=== PATIENT | female | born 1985 | race Caucasian/White ===

== ENCOUNTER 2019-03-20 17:25 | Inpatient (IN) | payer OTHER ==
[2019-03-20] MEDS ORDERED: ONDANSETRON 4 MG/2 ML VIAL IVP STA (19:25)
[2019-03-20] MEDS ORDERED: SODIUM CHLORIDE 0.9% 1,000 ML IV STA (19:25)
[2019-03-20] MEDS ORDERED: KETOROLAC 30 MG/ML 1 ML VIAL IVP STA (19:25)
--- NOTE | 2019-03-20 19:52 | ED ---
Abdominal Pain HPI <Jose Alfaro - Last Filed: 03/20/19 21:15> - General Source: patient Mode of arrival: ambulatory Limitations: no limitations <Jen Villalba - Last Filed: 03/20/19 21:44> - General Chief Complaint: Abdominal Pain Stated Complaint: Vomiting, abd pain Time Seen by Provider: 03/20/19 19:10 - History of Present Illness Initial Comments: Patient is a 33-year-old female presenting to emergency Department with complaints of umbilical and right lower quadrant pain that started this afternoon. Patient states it started pretty suddenly and she's been having nausea and vomiting with this pain as well. Patient describes the pain as constant and very sharp in nature. She admits to history of cholecystectomy and 2 C-sections. Patient describes his pain is way worse than labor pains, rates 9/10. Different positions do not make this pain better. She denies history of kidney stones. She takes medicine for ADHD. No other pertinent past medical history. She denies secondary to tubal removal. She states that yesterday and this morning she was feeling fine. She's been eating and drinking as normal, last bowel movement was yesterday was normal. She has no other complaints at this time. Arrival to the ER, patient's BP is 154/97, rest of vitals are normal. (Jen Villalba) - Related Data Allergies Allergy/AdvReac Type Severity Reaction Status Date / Time sulfamethoxazole Allergy Unknown Verified 03/20/19 17:29 [From Bactrim] Childhood trimethoprim [From Bactrim] Allergy Unknown Verified 03/20/19 17:29 Childhood Review of Systems ROS Other: All systems not noted in ROS Statement are negative. <Jose Alfaro - Last Filed: 03/20/19 21:15> ROS Other: All systems not noted in ROS Statement are negative. <Jen Villalba - Last Filed: 03/20/19 21:44> ROS Statement: Those systems with pertinent positive or pertinent negative responses have been documented in the HPI. Past Medical History Past Medical History: No Reported History History of Any Multi-Drug Resistant Organisms: None Reported Past Surgical History: Section, Cholecystectomy Past Psychological History: ADD/ADHD Smoking Status: Never smoker Past Alcohol Use History: Occasional Past Drug Use History: None Reported <Jen Villalba - Last Filed: 03/20/19 21:44> General Exam Limitations: no limitations <Jen Villalba - Last Filed: 03/20/19 21:44> - General Exam Comments Initial Comments: GENERAL: Patient is in the position, very nauseous and gripping stomach. HEAD: Atraumatic, normocephalic. EYES: Pupils equal round and reactive to light, extraocular movements intact, sclera anicteric, conjunctiva are normal. ENT: TMs normal, nares patent, oropharynx clear without exudates. Moist mucous membranes. NECK: Normal range of motion, supple without lymphadenopathy or JVD. LUNGS: Breath sounds clear to auscultation bilaterally and equal. No wheezes rales or rhonchi. HEART: Regular rate and rhythm without murmurs, rubs or gallops. ABDOMEN: Severe tenderness to palpation in the right lower quadrant, suprapubic and umbilical region. Patient is guarding, positive rebound. : Deferred EXTREMITIES: Normal range of motion, no pitting or edema. No clubbing or cyanosis. NEUROLOGICAL: Normal speech, normal gait. PSYCH: Normal mood, normal affect. SKIN: Warm, Dry, normal turgor, no rashes or lesions noted. (Jen Villalba) Course <Jose Alfaro - Last Filed: 03/20/19 21:15> Vital Signs 03/20/19 03/20/19 03/20/19 17:27 19:25 20:00 Temperature 97.6 F 97 F L Pulse Rate 77 117 H Respiratory 19 19 19 Rate Blood Pressure 154/97 149/96 119/96 O2 Sat by Pulse 100 100 97 Oximetry 03/20/19 21:00 Temperature 97.6 F Pulse Rate 86 Respiratory 18 Rate Blood Pressure 111/75 O2 Sat by Pulse 100 Oximetry - Reevaluation(s) Reevaluation #1: 03/20/19 21:[address] Roe, the surgeon on-call and he will attempt to arrange OR for tonight. (Jose Alfaro) Medical Decision Making - Lab Data Result diagrams: 03/20/19 14:36 03/20/19 14:36 <Jose Alfaro - Last Filed: 03/20/19 21:15> - Lab Data Result diagrams: 03/20/19 14:36 03/20/19 14:36 <Jen Villalba - Last Filed: 03/20/19 21:44> - Medical Decision Making I saw this patient in conjunction with the physician access services assistant. I performed independent history and physical exam. Agree with case management. (Jose Alfaro) Patient is a 33-year-old female presenting with right lower quadrant and umbilical pain since this afternoon. Patient has history of cholecystectomy and 2 C-sections. Vital signs are stable upon arrival. Patient has severe right lower quadrant pain. Labs show slight leukocytosis at 13.7, lactic acid is norm al, urine is normal. EKG the abdomen shows findings consistent with acute appendicitis, also findings of a ruptured left ovarian cyst. She was given fluids, pain control, Zofran. She reports improvement in her symptoms. I discussed these findings with the patient. On-call surgery, Dr. Roe was contacted and [facility] Antibiotics were started as well. Patient is in agreement with this plan of care. Case discussed with Dr. Alfaro. (Jen Villalba) - Lab Data Lab Results 03/20/19 03/20/19 03/20/19 Range/Units 14:36 14:36 14:36 WBC (3.8-10.6) k/uL RBC (3.80-5.40) m/uL Hgb (11.4-16.0) gm/dL Hct (34.0-46.0) % MCV (80.0-100.0) fL MCH (25.0-35.0) pg MCHC (31.0-37.0) g/dL RDW (11.5-15.5) % Plt Count (150-450) k/uL Neutrophils % % Lymphocytes % % Monocytes % % Eosinophils % % Basophils % % Neutrophils # (1.3-7.7) k/uL Lymphocytes # (1.0-4.8) k/uL Monocytes # (0-1.0) k/uL Eosinophils # (0-0.7) k/uL Basophils # (0-0.2) k/uL PT 10.1 (9.0-12.0) sec INR 1.0 (<1.2) APTT 23.6 (22.0-30.0) sec Sodium 138 (137-145) mmol/L Potassium 4.2 (3.5-5.1) mmol/L Chloride 103 (98-107) mmol/L Carbon Dioxide 26 (22-30) mmol/L Anion Gap 9 mmol/L BUN 11 (7-17) mg/dL Creatinine 0.59 (0.52-1.04) mg/dL Est GFR (CKD-EPI)AfAm >90 (>60 ml/min/1.73 sqM) Est GFR (CKD-EPI)NonAf >90 (>60 ml/min/1.73 sqM) Glucose 105 H (74-99) mg/dL Plasma Lactic Acid Nate 0.8 (0.7-2.0) mmol/L Calcium 9.5 (8.4-10.2) mg/dL Total Bilirubin 0.6 (0.2-1.3) mg/dL AST 21 (14-36) U/L ALT 14 (4-34) U/L Alkaline Phosphatase 46 (38-126) U/L Total Protein 7.6 (6.3-8.2) g/dL Albumin 4.7 (3.5-5.0) g/dL Amylase 54 (30-110) U/L Lipase 65 (23-300) U/L Urine Color Urine Appearance (Clear) Urine pH (5.0-8.0) Ur Specific [place] (1.001-1.035) Urine Protein (Negative) Urine Glucose (UA) (Negative) Urine Ketones (Negative) Urine Blood (Negative) Urine Nitrite (Negative) Urine Bilirubin (Negative) Urine Urobilinogen (<2.0) mg/dL Ur Leukocyte Esterase (Negative) Urine RBC (0-5) /hpf Urine WBC (0-5) /hpf Ur Squamous Epith Cells (0-4) /hpf Urine Mucus (None) /hpf Urine HCG, Qual (Not Detectd) 03/20/19 03/20/19 03/20/19 Range/Units 14:36 20:07 20:07 WBC 13.7 H (3.8-10.6) k/uL RBC 4.21 (3.80-5.40) m/uL Hgb 13.0 (11.4-16.0) gm/dL Hct 37.9 (34.0-46.0) % MCV 89.9 (80.0-100.0) fL MCH 30.9 (25.0-35.0) pg MCHC 34.3 (31.0-37.0) g/dL RDW 12.5 (11.5-15.5) % Plt Count 243 (150-450) k/uL Neutrophils % 88 % Lymphocytes % 10 % Monocytes % 2 % Eosinophils % 0 % Basophils % 0 % Neutrophils # 12.0 H (1.3-7.7) k/uL Lymphocytes # 1.3 (1.0-4.8) k/uL Monocytes # 0.3 (0-1.0) k/uL Eosinophils # 0.0 (0-0.7) k/uL Basophils # 0.0 (0-0.2) k/uL PT (9.0-12.0) sec INR (<1.2) APTT (22.0-30.0) sec Sodium (137-145) mmol/L Potassium (3.5-5.1) mmol/L Chloride (98-107) mmol/L Carbon Dioxide (22-30) mmol/L Anion Gap mmol/L BUN (7-17) mg/dL Creatinine (0.52-1.04) mg/dL Est GFR (CKD-EPI)AfAm (>60 ml/min/1.73 sqM) Est GFR (CKD-EPI)NonAf (>60 ml/min/1.73 sqM) Glucose (74-99) mg/dL Plasma Lactic Acid Nate (0.7-2.0) mmol/L Calcium (8.4-10.2) mg/dL Total Bilirubin (0.2-1.3) mg/dL AST (14-36) U/L ALT (4-34) U/L Alkaline Phosphatase (38-126) U/L Total Protein (6.3-8.2) g/dL Albumin (3.5-5.0) g/dL Amylase (30-110) U/L Lipase (23-300) U/L Urine Color Yellow Urine Appearance Clear (Clear) Urine pH 7.5 (5.0-8.0) Ur Specific [place] 1.050 H (1.001-1.035) Urine Protein Negative (Negative) Urine Glucose (UA) Negative (Negative) Urine Ketones 1+ H (Negative) Urine Blood Negative (Negative) Urine Nitrite Negative (Negative) Urine Bilirubin Negative (Negative) Urine Urobilinogen 2.0 (<2.0) mg/dL Ur Leukocyte Esterase Trace H (Negative) Urine RBC 1 (0-5) /hpf Urine WBC 1 (0-5) /hpf Ur Squamous Epith Cells 3 (0-4) /hpf Urine Mucus Rare H (None) /hpf Urine HCG, Qual Not Detected (Not Detectd) Disposition <Jose Alfaro - Last Filed: 03/20/19 21:15> Is patient prescribed a controlled substance at d/c from ED?: No Decision Date: 03/20/19 Decision Time: 21:25 <Jen Villalba - Last Filed: 03/20/19 21:44> Clinical Impression: Acute appendicitis Disposition: ADMITTED IP TO THIS HOSP Condition: Stable Referrals: Madelyn Cesar DO [Primary Care Provider] - 1-2 days
[2019-03-20 19:57] LABS: Basophils % (A) 0 %; Eosinophils % (A) 0 %; HCT 37.9 % (34.0-46.0); Lymphocytes # (A) 1.3 k/uL (1.0-4.8); Lymphocytes % (A) 10 %; MCH 30.9 pg (25.0-35.0); MCHC 34.3 g/dL (31.0-37.0); MCV 89.9 fL (80.0-100.0); Monocytes # (A) 0.3 k/uL (0-1.0); Monocytes % (A) 2 %; Neutrophils % (A) 88 %; Platelet Count 243 k/uL (150-450); RBC 4.21 m/uL (3.80-5.40); RDW 12.5 % (11.5-15.5); WBC 13.7 k/uL (3.8-10.6)
[2019-03-20 19:59] LABS: ALT 14 U/L (4-34); AST 21 U/L (14-36); African American GFR (CKD) >90 (>60 ml/min/1.73 sqM); Albumin 4.7 g/dL (3.5-5.0); Alkaline Phosphatase 46 U/L (38-126); Amylase 54 U/L (30-110); Anion Gap 9 mmol/L; Blood Urea Nitrogen 11 mg/dL (7-17); Calcium 9.5 mg/dL (8.4-10.2); Carbon Dioxide 26 mmol/L (22-30); Chloride 103 mmol/L (98-107); Glucose 105 mg/dL (74-99); Non-African American GFR(CKD) >90 (>60 ml/min/1.73 sqM); Potassium 4.2 mmol/L (3.5-5.1); Sodium 138 mmol/L (137-145); Total Bilirubin 0.6 mg/dL (0.2-1.3); Total Protein 7.6 g/dL (6.3-8.2)
[2019-03-20 20:12] LABS: Partial Thromboplastin Time 23.6 sec (22.0-30.0); Prothrombin Time 10.1 sec (9.0-12.0)
[2019-03-20 20:28] LABS: Appearance,Urine Clear (Clear); Bilirubin,Urine Negative (Negative); Blood,Urine Negative (Negative); Color,Urine Yellow; Glucose,Urine (UA) Negative (Negative); Ketones,Urine 1+ (Negative); Leukocyte Esterase,Urine Trace (Negative); Mucus,Urine Rare /hpf; Nitrite,Urine Negative (Negative); PH, Urine 7.5 (5.0-8.0); Protein,Urine Negative (Negative); RBC,Urine 1 /hpf (0-5); Squamous Epithelial Cell,Urine 3 /hpf (0-4); WBC,Urine 1 /hpf (0-5)
--- NOTE | 2019-03-20 20:50 | CT ---
EXAMINATION TYPE: CT abdomen pelvis w con DATE OF EXAM: 03/20/2019 COMPARISON: None HISTORY: Right lower quadrant abdominal pain, nausea and vomiting. CT DLP: 595.6 mGycm Automated exposure control for dose reduction was used. TECHNIQUE: Helical acquisition of images was performed from the lung bases through the pelvis. CONTRAST: Performed without Oral Contrast and with IV Contrast, patient injected with 100ml mL of Iso meenu 300. FINDINGS: LUNG BASES: No acute process. LIVER/GB: No significant abnormality is appreciated. PANCREAS: No significant abnormality is seen. SPLEEN: No significant abnormality is seen. ADRENALS: No significant abnormality is seen. KIDNEYS: No significant abnormality is seen. PERITONEAL CAVITY: There is a mild-moderate volume of gravity-dependent peritoneal fluid throughout t he pelvis. There is no pneumoperitoneum. RETROPERITONEAL ADENOPATHY: None visualized REPRODUCTIVE ORGANS: No significant abnormality is seen. Uterus anteverted without flexion measuring 10 x 6 x 5 x 5.5 cm. Specific bilateral adnexal cystic regions are noted, left greater than right. URINARY BLADDER: No significant abnormality is seen. PELVIC ADENOPATHY: None visualized. BOWEL: Cecum is located in the right lower quadrant anteriorly, with a retrocecal appendix rising cep halad along the right posterolateral cecal margin up to a level just caudal to the level of the super ior iliac crest. The appendix is indistinct and diffusely enlarged in caliber, measuring 11 mm (top n ormal caliber 6 mm). The thickened appendix is associated with mild thickening of the lateral conal f ascia.There is a mild-plus volume of gravity-dependent peritoneal fluid throughout the pelvis - but n o focal fluid collection to suggest abscess. VASCULATURE: No acute findings. OSSEOUS STRUCTURES: No significant abnormality is seen. IMPRESSION: 1. CT FINDINGS CONSISTENT WITH ACUTE APPENDICITIS. 2. PELVIC PERITONEAL FLUID. 3. FINDINGS ALSO SUGGEST RUPTURED LEFT OVARIAN CYST, IF CLINICALLY CONFIRMED, AND CLINICAL EXCLUSION OF REQUESTED.
[2019-03-20] MEDS ORDERED: MORPHINE SULFATE 4 MG/ML SYRINGE IVP STA (20:55)
[2019-03-20] MEDS ORDERED: NALOXONE 0.4 MG/ML 1 ML VIAL IV PRN (21:23)
[2019-03-20] MEDS ORDERED: KETOROLAC 30 MG/ML 1 ML VIAL IVP PRN (21:23)
[2019-03-20] MEDS ORDERED: ONDANSETRON 4 MG/2 ML VIAL IVP PRN (21:23)
[2019-03-20] MEDS ORDERED: ACETAMINOPHEN TAB 325 MG TAB PO PRN (21:23)
[2019-03-20] MEDS ORDERED: PIPERACILLIN-TAZOBACTAM 3.375 GM in SODIUM CHLORIDE 0.9% 100 ML IVPB STA (21:25)
[2019-03-20] MEDS: SODIUM CHLORIDE 0.9% 1,000 ML IV SCH (21:49)
[2019-03-20] MEDS ORDERED: ONDANSETRON 4 MG/2 ML VIAL ONE (22:29)
[2019-03-20] MEDS ORDERED: DEXAMETHASONE SOD PHOS (MDV) 100 MG/10 ML VIAL ONE (22:29)
[2019-03-20] MEDS ORDERED: SUCCINYLCHOLINE CHLORIDE 100 MG/5 ML SYR IV ONE (22:29)
[2019-03-20] MEDS ORDERED: fentaNYL (PF) 50 MCG/ML 2 ML AMP ONE (22:29)
[2019-03-20] MEDS ORDERED: NEOSTIGMINE 1 MG/ML 10 ML VIAL ONE (22:29)
[2019-03-20] MEDS ORDERED: PROPOFOL 10 MG/ML 20 ML VIAL IV ONE (22:29)
[2019-03-20] MEDS ORDERED: MIDAZOLAM 2 MG/2 ML VIAL ONE (22:29)
[2019-03-20] MEDS ORDERED: ROCURONIUM BROMIDE 10 MG/ML 10 ML VIAL IV ONE (22:29)
[2019-03-20] MEDS ORDERED: GLYCOPYRROLATE 0.2 MG/ML 2 ML VIAL ONE (22:29)
[2019-03-20] MEDS ORDERED: LIDOCAINE 1% INJ 10MG/ML (20 ML MDV) ONE (22:29)
--- NOTE | 2019-03-20 22:30 | P.GSHP ---
History of Present Illness H&P Date: 03/20/19 33-year-old female presents to the emergency department with complaints of right lower quadrant pain. She states that the pain began at approximately 2 PM today and increased in intensity. She states that she began feeling nauseous and having vomiting episodes. She denies having an appetite. She states she has never had pain like this previously. On workup in the emergency department, the patient did have a CT of the abdomen and pelvis that showed a dilated and thickened appendix with surrounding fat stranding. She denied any fevers. She currently denies any chest pain or shortness of breath. - Review of Systems All systems: negative Past Medical History Past Medical History: No Reported History History of Any Multi-Drug Resistant Organisms: None Reported Past Surgical History: Section, Cholecystectomy Past Psychological History: ADD/ADHD Smoking Status: Never smoker Past Alcohol Use History: Occasional Past Drug Use History: None Reported Medications and Allergies Home Medications Medication Instructions Recorded Confirmed Type Lisdexamfetamine Dimesylate 70 mg PO QAM 03/20/19 03/20/19 History [Vyvanse] SUMAtriptan SUCCINATE [Imitrex] 100 mg PO DAILY PRN 03/20/19 03/20/19 History Sertraline [Zoloft] 200 mg PO DAILY 03/20/19 03/20/19 History Spironolactone [Aldactone] 25 mg PO DAILY 03/20/19 03/20/19 History Allergies Allergy/AdvReac Type Severity Reaction Status Date / Time sulfamethoxazole Allergy Rash/Hives Verified 03/20/19 22:17 [From Bactrim] trimethoprim [From Bactrim] Allergy Rash/Hives Verified 03/20/19 22:17 Surgical - Exam Osteopathic Statement: *. No significant issues noted on an osteopathic structural exam other than those noted in the History and Physical/Consult. Vital Signs Temp Pulse Resp BP Pulse Ox 97.6 F 77 19 154/97 100 03/20/19 17:27 03/20/19 17:27 03/20/19 17:27 03/20/19 17:27 03/20/19 17:27 - General well nourished, no distress - Eyes PERRL - ENT no hearing loss - Neck trachea midline - Respiratory normal respiratory effort - Abdomen Soft, tender to palpation in the right lower quadrant, nondistended, no rebound, no guarding - Psychiatric oriented to time, oriented to person, oriented to place Results - Labs 03/20/19 14:36 03/20/19 14:36 Abnormal Lab Results - Last 24 Hours (Table) 03/20/19 03/20/19 03/20/19 Range/Units 14:36 14:36 20:07 WBC 13.7 H (3.8-10.6) k/uL Neutrophils # 12.0 H (1.3-7.7) k/uL Glucose 105 H (74-99) mg/dL Ur Specific [place] 1.050 H (1.001-1.035) Urine Ketones 1+ H (Negative) Ur Leukocyte Esterase Trace H (Negative) Urine Mucus Rare H (None) /hpf Diabetes panel 03/20/19 Range/Units 14:36 Sodium 138 (137-145) mmol/L Potassium 4.2 (3.5-5.1) mmol/L Chloride 103 (98-107) mmol/L Carbon Dioxide 26 (22-30) mmol/L BUN 11 (7-17) mg/dL Creatinine 0.59 (0.52-1.04) mg/dL Glucose 105 H (74-99) mg/dL Calcium 9.5 (8.4-10.2) mg/dL AST 21 (14-36) U/L ALT 14 (4-34) U/L Alkaline Phosphatase 46 (38-126) U/L Total Protein 7.6 (6.3-8.2) g/dL Albumin 4.7 (3.5-5.0) g/dL Calcium panel 03/20/19 Range/Units 14:36 Calcium 9.5 (8.4-10.2) mg/dL Albumin 4.7 (3.5-5.0) g/dL Pituitary panel 03/20/19 Range/Units 14:36 Sodium 138 (137-145) mmol/L Potassium 4.2 (3.5-5.1) mmol/L Chloride 103 (98-107) mmol/L Carbon Dioxide 26 (22-30) mmol/L BUN 11 (7-17) mg/dL Creatinine 0.59 (0.52-1.04) mg/dL Glucose 105 H (74-99) mg/dL Calcium 9.5 (8.4-10.2) mg/dL Adrenal panel 03/20/19 Range/Units 14:36 Sodium 138 (137-145) mmol/L Potassium 4.2 (3.5-5.1) mmol/L Chloride 103 (98-107) mmol/L Carbon Dioxide 26 (22-30) mmol/L BUN 11 (7-17) mg/dL Creatinine 0.59 (0.52-1.04) mg/dL Glucose 105 H (74-99) mg/dL Calcium 9.5 (8.4-10.2) mg/dL Total Bilirubin 0.6 (0.2-1.3) mg/dL AST 21 (14-36) U/L ALT 14 (4-34) U/L Alkaline Phosphatase 46 (38-126) U/L Total Protein 7.6 (6.3-8.2) g/dL Albumin 4.7 (3.5-5.0) g/dL Assessment and Plan (1) Acute appendicitis Narrative/Plan: 33-year-old female with acute appendicitis. We will begin antibiotics and keep the patient nothing by mouth. We will plan for laparoscopic appendectomy. Further recommendations after procedure. Current Visit: Yes Status: Acute Code(s): K35.80 - UNSPECIFIED ACUTE APPENDICITIS SNOMED Code(s): 68632751
[2019-03-20] MEDS ORDERED: SODIUM CHLORIDE 0.9% 1,000 ML IV ONE (22:32)
[2019-03-20] MEDS ORDERED: BUPIVACAINE (PF) 0.25% 30 ML VIAL SQ ONE ×2 (22:48)
--- NOTE | 2019-03-20 23:12 | P.OP ---
Date of Procedure: 03/20/19 Preoperative Diagnosis: Acute appendicitis Postoperative Diagnosis: Acute appendicitis Procedure(s) Performed: Laparoscopic appendectomy Anesthesia: MCKINLEY Surgeon: Roshan Roe Pathology: other (Appendix) Condition: stable Disposition: floor Indications for Procedure: 33-year-old female presented to the emergency department with complaints of right lower quadrant pain. On workup, she was found to have acute appendicitis on CT of the abdomen and pelvis. Plan was for laparoscopic appendectomy. The patient was explained the risks, benefits and alternatives to the procedure. She did provide consent prior to attending the operating suite. Operative Findings: Inflamed appendix and turbid fluid in the pelvis Description of Procedure: The patient was brought into the operating suite and placed in supine position on the operating table. Sedation was provided by anesthesia and the patient underwent endotracheal intubation. The patient was then prepped and draped in regular sterile fashion. Local anesthetic was administered and a supraumbilical incision was made. Dissection was carried to the fascia. The fascia was then incised and a 12 mm trocar was placed. Pneumoperitoneum was achieved. 2 additional ports were placed. A 5 mm port was placed in the suprapubic region and in the left lower quadrant. The patient was then positioned appropriately. The appendix was immediately visualized and was noted to be inflamed. Turbid fluid was also noted in the pelvis. The appendix was then grasped and elevated. The base of the appendix was clearly visualized. A window was then created between the appendix and the mesoappendix using a [place] dissector. The base of the appendix was then stapled across using a purple load Endo DANIELLA stapling device. The appendix was then dissected from the mesoappendix using LigaSure device. The appendix was then placed in an Endo Catch bag and removed from the abdomen. Suction and irrigation was then placed in the pelvis to remove the turbid fluid. Hemostasis was noted to be maintained. The 12 mm trocar site was then closed with 0 Vicryl suture in the fascial layer. This was done using Leonel Horvath device under direct visualization. Pneumoperitoneum was then released other ports removed from the abdomen. All skin incision sites were closed with 4-0 Vicryl subcuticular suture. The patient was awakened in the operating suite and taken to postanesthesia care unit in stable condition.
[2019-03-21] MEDS: SODIUM CHLORIDE 0.9% 1,000 ML IV SCH (01:00)
[2019-03-21] MEDS: KETOROLAC 30 MG/ML 1 ML VIAL IVP PRN ×3 (01:07→14:21)
[2019-03-21] MEDS: MORPHINE SULFATE 4 MG/ML SYRINGE IV PRN ×3 (02:05→09:29)
[2019-03-21] MEDS ORDERED: PIPERACILLIN-TAZOBACTAM 3.375 GM in SODIUM CHLORIDE 0.9% 100 ML IVPB SCH ×2 (06:00→08:00)
[2019-03-21 07:45] LABS: Basophils % (A) 0 %; Eosinophils % (A) 0 %; HCT 35.9 % (34.0-46.0); Lymphocytes # (A) 0.7 k/uL (1.0-4.8); Lymphocytes % (A) 12 %; MCH 30.7 pg (25.0-35.0); MCHC 33.4 g/dL (31.0-37.0); MCV 91.9 fL (80.0-100.0); Mean Platelet Volume 8.2; Monocytes # (A) 0.1 k/uL (0-1.0); Monocytes % (A) 2 %; Neutrophils # (A) 4.7 k/uL (1.3-7.7); Neutrophils % (A) 85 %; Platelet Count 234 k/uL (150-450); RDW 12.6 % (11.5-15.5); WBC 5.5 k/uL (3.8-10.6)
[2019-03-21 08:04] LABS: ALT 108 U/L (4-34); AST 104 U/L (14-36); African American GFR (CKD) >90 (>60 ml/min/1.73 sqM); Albumin 3.5 g/dL (3.5-5.0); Alkaline Phosphatase 41 U/L (38-126); Anion Gap 7 mmol/L; Blood Urea Nitrogen 7 mg/dL (7-17); Calcium 8.4 mg/dL (8.4-10.2); Carbon Dioxide 24 mmol/L (22-30); Chloride 107 mmol/L (98-107); Glucose 107 mg/dL (74-99); Non-African American GFR(CKD) >90 (>60 ml/min/1.73 sqM); Potassium 4.7 mmol/L (3.5-5.1); Sodium 138 mmol/L (137-145); Total Protein 6.2 g/dL (6.3-8.2)
[2019-03-21 08:10] VITALS: RESP 16
[2019-03-21] MEDS ORDERED: LISDEXAMFETAMINE DIMESYLATE 70 MG PO SCH (09:00)
[2019-03-21] MEDS ORDERED: SPIRONOLACTONE 25 MG TAB PO SCH (09:00)
[2019-03-21] MEDS ORDERED: SERTRALINE 100 MG TAB PO SCH (09:00)
--- NOTE | 2019-03-21 11:07 | P.DS ---
Providers Date of admission: 03/20/19 22:23 Attending physician: Roshan Roe DO Primary care physician: Madelyn Cesar - Discharge Diagnosis(es) (1) Acute appendicitis Current Visit: Yes Status: Acute Hospital Course: 33-year-old female presented to the emergency department with complaints of right lower quadrant pain. On workup, she was found to have acute appendicitis. The patient was taken to the operating room for laparoscopic appendectomy. Postoperatively, the patient was sent to the medical surgical floor. She did improve. Pain improved. Leukocytosis improved. She was surgically stable for discharge. Procedures: Laparoscopic appendectomy Patient Condition at Discharge: Stable Plan - Discharge Summary Discharge Rx Participant: No New Discharge Prescriptions: New HYDROcodone/APAP 5-325MG [[place] 5-325] 1 tab PO Q6HR PRN 3 Days #12 tab PRN Reason: Pain Continue Sertraline [Zoloft] 200 mg PO DAILY Spironolactone [Aldactone] 25 mg PO DAILY SUMAtriptan SUCCINATE [Imitrex] 100 mg PO DAILY PRN PRN Reason: Migraine Headache Lisdexamfetamine Dimesylate [Vyvanse] 70 mg PO QAM Discharge Medication List Lisdexamfetamine Dimesylate [Vyvanse] 70 mg PO QAM 03/20/19 [History] SUMAtriptan SUCCINATE [Imitrex] 100 mg PO DAILY PRN 03/20/19 [History] Sertraline [Zoloft] 200 mg PO DAILY 03/20/19 [History] Spironolactone [Aldactone] 25 mg PO DAILY 03/20/19 [History] HYDROcodone/APAP 5-325MG [[place] 5-325] 1 tab PO Q6HR PRN 3 Days #12 tab 03/21/19 [Rx] Follow up Appointment(s)/Referral(s): Madelyn Cesar DO [Primary Care Provider] - 03/25/19 8:45 am Roshan Roe DO [Doctor of Osteopathic Medicine] - 03/31/19 9:45 am Patient Instructions/Handouts: Laparoscopic Appendectomy (DC) Activity/Diet/Wound Care/Special Instructions: Okay to slowly advance diet towards a soft diet Okay to shower No lifting greater than 7 pounds for 2 weeks Discharge Disposition: HOME SELF-CARE
[2019-03-21 14:33] VITALS: BP 93/54; PULSE 79; TEMP 97.8
== END 2019-03-21 17:39 | disposition home or self-care (01) | DRG 343 ==
LOC: EC 17:25 → 4SSUR 22:23
PROVIDERS: ADMIT Surgery; ATTEND Surgery
PROC: 0DTJ4ZZ Resection of Appendix, Percutaneous Endoscopic Approach (ICD-10-PCS; principal; 2019-03-20 10:30)
DX: K35.80 Unspecified acute appendicitis (principal); F90.9 Attention-deficit hyperactivity disorder, unspecified type; N83.202 Unspecified ovarian cyst, left side; Z79.899 Other long term (current) drug therapy; Z90.49 Acquired absence of other specified parts of digestive tract; Z98.891 History of uterine scar from previous surgery; Z88.2 Allergy status to sulfonamides; Z88.8 Allergy status to other drugs, medicaments and biological substances
CPT/HCPCS: 36415; 74177; 80053; 81001; 81025; 82150; 83605; 83690; 85025; 85610; 85730; 88304; 96361; 96365; 96375; 99285

== ENCOUNTER 2020-06-27 19:41 | Emergency (ER) | payer OTHER ==
[2020-06-27] MEDS ORDERED: SODIUM CHLORIDE 0.9% 1,000 ML IV STA (20:21)
[2020-06-27] MEDS ORDERED: ONDANSETRON 4 MG/2 ML VIAL IVP STA (20:21)
[2020-06-27] MEDS ORDERED: FAMOTIDINE 20 MG/2 ML VIAL IV STA (20:23)
--- NOTE | 2020-06-27 20:31 | ED ---
Abdominal Pain HPI - General Chief Complaint: Abdominal Pain Stated Complaint: ABD pain Time Seen by Provider: 06/27/20 19:54 Source: patient, RN notes reviewed Mode of arrival: ambulatory Limitations: no limitations - History of Present Illness Initial Comments: 34-year-old white female, no acute distress, presents to the emergency room with complaints of 3 days of epigastric burning on and off. patient states she's also had some nausea and vomiting mostly watery. Denies fevers. Denies hematochezia denies hematemesis. Denies dysuria States tried Pepto-Bismol and Tums with no relief. Patient states difficult fall asleep can't get comfortable related to abdominal cramping.. Patient has history of an appendectomy and cholecystectomy and tubal ligation in 2014. Patient takes Concerta, Zoloft for anxiety, and spironolactone for acne. Patient denies any sick contacts. States received the J&J vaccine 4 weeks ago for Covid. MD Complaint: abdominal pain -: days(s) (3) Location: epigastric Radiation: back Severity scale (1-10): 9 Quality: burning Consistency: intermittent Improves With: nothing Worsens With: eating Associated Symptoms: nausea, anorexia Treatments Prior to Arrival: antacids (pepto bismol and tums) - Related Data Home Medications Medication Instructions Recorded Confirmed Sertraline [Zoloft] 200 mg PO DAILY 03/20/19 06/27/20 Spironolactone [Aldactone] 25 mg PO DAILY 03/20/19 06/27/20 Methylphenidate HCl [Concerta] 54 mg PO DAILY 06/27/20 06/27/20 Previous Rx's Medication Instructions Recorded Famotidine [Pepcid] 20 mg PO BID #28 tablet 06/27/20 Allergies Allergy/AdvReac Type Severity Reaction Status Date / Time sulfamethoxazole Allergy Rash/Hives Verified 06/27/20 20:59 [From Bactrim] trimethoprim [From Bactrim] Allergy Rash/Hives Verified 06/27/20 20:59 Review of Systems ROS Statement: Those systems with pertinent positive or pertinent negative responses have been documented in the HPI. ROS Other: All systems not noted in ROS Statement are negative. Past Medical History Past Medical History: No Reported History History of Any Multi-Drug Resistant Organisms: None Reported Past Surgical History: Appendectomy, Section, Cholecystectomy Past Anesthesia/Blood Transfusion Reactions: Unable to Obtain Additional Past Anesthesia/Blood Transfusion Reaction / Comment(s): No prior blood transfusions Past Psychological History: ADD/ADHD Smoking Status: Never smoker Past Alcohol Use History: Occasional Past Drug Use History: None Reported General Exam Limitations: no limitations General appearance: alert, in no apparent distress, anxious Head exam: Present: atraumatic, normocephalic, normal inspection Eye exam: Present: normal appearance, PERRL, EOMI. Absent: scleral icterus, conjunctival injection, nystagmus, periorbital swelling Pupils: Present: normal accommodation ENT exam: Present: normal exam, normal oropharynx, mucous membranes moist Neck exam: Present: normal inspection, full ROM. Absent: tenderness, meningismus, lymphadenopathy Respiratory exam: Present: normal lung sounds bilaterally. Absent: respiratory distress, wheezes, rales, rhonchi, stridor, chest wall tenderness, accessory muscle use, decreased breath sounds Cardiovascular Exam: Present: tachycardia, normal heart sounds. Absent: JVD GI/Abdominal exam: Present: soft, normal bowel sounds. Absent: distended, tenderness, guarding, rebound, rigid, mass Extremities exam: Present: normal inspection, full ROM, normal capillary refill. Absent: tenderness, pedal edema, joint swelling, calf tenderness Back exam: Present: full ROM. Absent: tenderness, CVA tenderness (R), CVA tenderness (L) Neurological exam: Present: alert, oriented X3, CN II-XII intact Psychiatric exam: Present: normal affect, normal mood Skin exam: Present: warm, dry, intact, normal color. Absent: rash, cyanosis, diaphoretic, erythema, pallor Course Vital Signs 06/27/20 19:47 Temperature 98.0 F Pulse Rate 125 H Respiratory 20 Rate Blood Pressure 169/102 O2 Sat by Pulse 100 Oximetry Medical Decision Making - Medical Decision Making KUB shows no pneumoperitoneum, no mass, lungs are clear. No acute process. Blood cell count 6.7, patient is afebrile history of 98. Hemoglobin and hematocrit within normal limits. Abdomen is soft nontender no referred pain. Patient has very had a cholecystectomy and appendectomy. Patient has had tubal ligation in 2014. Patient given a liter bolus with Pepcid and Zofran in the emergency room, reports relief from pain at this time. This is likely gastroesophageal reflux that it occurred at night when she was sleeping, patient describes pain as burning, with increased belching. Will treat with Pepcid twice a day. Patient agreeable to being discharged with prescription for Pepcid and follow up with her primary care doctor in 1 week for continuation of care. Case discussed with Dr. Alfaro was agreeable to this plan of care. - Lab Data Result diagrams: 06/27/20 20:41 06/27/20 20:41 Lab Results 06/27/20 06/27/20 06/27/20 Range/Units 20:41 20:41 20:41 WBC 6.7 (3.8-10.6) k/uL RBC 4.31 (3.80-5.40) m/uL Hgb 13.9 (11.4-16.0) gm/dL Hct 39.1 (34.0-46.0) % MCV 90.7 (80.0-100.0) fL MCH 32.2 (25.0-35.0) pg MCHC 35.5 (31.0-37.0) g/dL RDW 11.9 (11.5-15.5) % Plt Count 210 (150-450) k/uL MPV 8.3 Neutrophils % 62 % Lymphocytes % 31 % Monocytes % 4 % Eosinophils % 1 % Basophils % 1 % Neutrophils # 4.1 (1.3-7.7) k/uL Lymphocytes # 2.1 (1.0-4.8) k/uL Monocytes # 0.3 (0-1.0) k/uL Eosinophils # 0.0 (0-0.7) k/uL Basophils # 0.1 (0-0.2) k/uL Sodium 138 (137-145) mmol/L Potassium 3.9 (3.5-5.1) mmol/L Chloride 102 (98-107) mmol/L Carbon Dioxide 29 (22-30) mmol/L Anion Gap 7 mmol/L BUN 10 (7-17) mg/dL Creatinine 0.69 (0.52-1.04) mg/dL Est GFR (CKD-EPI)AfAm >90 (>60 ml/min/1.73 sqM) Est GFR (CKD-EPI)NonAf >90 (>60 ml/min/1.73 sqM) Glucose 95 (74-99) mg/dL Plasma Lactic Acid Ntae (0.7-2.0) mmol/L Calcium 10.2 (8.4-10.2) mg/dL Total Bilirubin 0.5 (0.2-1.3) mg/dL AST 20 (14-36) U/L ALT 11 (4-34) U/L Alkaline Phosphatase 38 (38-126) U/L Total Protein 6.8 (6.3-8.2) g/dL Albumin 4.4 (3.5-5.0) g/dL Amylase 52 (30-110) U/L Lipase 110 (23-300) U/L Urine Color Light Yellow Urine Appearance Clear (Clear) Urine pH 7.5 (5.0-8.0) Ur Specific [place] 1.009 (1.001-1.035) Urine Protein Negative (Negative) Urine Glucose (UA) Negative (Negative) Urine Ketones Negative (Negative) Urine Blood Negative (Negative) Urine Nitrite Negative (Negative) Urine Bilirubin Negative (Negative) Urine Urobilinogen <2.0 (<2.0) mg/dL Ur Leukocyte Esterase Negative (Negative) 06/27/20 Range/Units 20:41 WBC (3.8-10.6) k/uL RBC (3.80-5.40) m/uL Hgb (11.4-16.0) gm/dL Hct (34.0-46.0) % MCV (80.0-100.0) fL MCH (25.0-35.0) pg MCHC (31.0-37.0) g/dL RDW (11.5-15.5) % Plt Count (150-450) k/uL MPV Neutrophils % % Lymphocytes % % Monocytes % % Eosinophils % % Basophils % % Neutrophils # (1.3-7.7) k/uL Lymphocytes # (1.0-4.8) k/uL Monocytes # (0-1.0) k/uL Eosinophils # (0-0.7) k/uL Basophils # (0-0.2) k/uL Sodium (137-145) mmol/L Potassium (3.5-5.1) mmol/L Chloride (98-107) mmol/L Carbon Dioxide (22-30) mmol/L Anion Gap mmol/L BUN (7-17) mg/dL Creatinine (0.52-1.04) mg/dL Est GFR (CKD-EPI)AfAm (>60 ml/min/1.73 sqM) Est GFR (CKD-EPI)NonAf (>60 ml/min/1.73 sqM) Glucose (74-99) mg/dL Plasma Lactic Acid Nate 0.8 (0.7-2.0) mmol/L Calcium (8.4-10.2) mg/dL Total Bilirubin (0.2-1.3) mg/dL AST (14-36) U/L ALT (4-34) U/L Alkaline Phosphatase (38-126) U/L Total Protein (6.3-8.2) g/dL Albumin (3.5-5.0) g/dL Amylase (30-110) U/L Lipase (23-300) U/L Urine Color Urine Appearance (Clear) Urine pH (5.0-8.0) Ur Specific [place] (1.001-1.035) Urine Protein (Negative) Urine Glucose (UA) (Negative) Urine Ketones (Negative) Urine Blood (Negative) Urine Nitrite (Negative) Urine Bilirubin (Negative) Urine Urobilinogen (<2.0) mg/dL Ur Leukocyte Esterase (Negative) Disposition Clinical Impression: GERD (gastroesophageal reflux disease) Disposition: HOME SELF-CARE Condition: Good Instructions (If sedation given, give patient instructions): Gastroesophageal Reflux Disease (ED) Additional Instructions: Take medication as prescribed, increase her fluid intake. Follow-up with your doctor next week for continuation of care. Prescriptions: Famotidine [Pepcid] 20 mg PO BID #28 tablet Is patient prescribed a controlled substance at d/c from ED?: No Referrals: Madelyn Cesar DO [Primary Care Provider] - 1-2 days Time of Disposition: 21:45
[2020-06-27 21:02] LABS: Appearance,Urine Clear (Clear); Bilirubin,Urine Negative (Negative); Blood,Urine Negative (Negative); Color,Urine Light Yellow; Glucose,Urine (UA) Negative (Negative); Ketones,Urine Negative (Negative); Leukocyte Esterase,Urine Negative (Negative); Nitrite,Urine Negative (Negative); PH, Urine 7.5 (5.0-8.0); Protein,Urine Negative (Negative); Specific Gravity,Urine 1.009 (1.001-1.035); Urobilinogen,Urine <2.0 mg/dL (<2.0)
[2020-06-27 21:03] LABS: Basophils # (A) 0.1 k/uL (0-0.2); Basophils % (A) 1 %; Eosinophils % (A) 1 %; HCT 39.1 % (34.0-46.0); HGB 13.9 gm/dL (11.4-16.0); Lymphocytes # (A) 2.1 k/uL (1.0-4.8); Lymphocytes % (A) 31 %; MCH 32.2 pg (25.0-35.0); MCHC 35.5 g/dL (31.0-37.0); MCV 90.7 fL (80.0-100.0); Mean Platelet Volume 8.3; Monocytes # (A) 0.3 k/uL (0-1.0); Monocytes % (A) 4 %; Neutrophils # (A) 4.1 k/uL (1.3-7.7); Neutrophils % (A) 62 %; Platelet Count 210 k/uL (150-450); RBC 4.31 m/uL (3.80-5.40); RDW 11.9 % (11.5-15.5); WBC 6.7 k/uL (3.8-10.6)
--- NOTE | 2020-06-27 21:14 | XR ---
EXAMINATION TYPE: XR KUB DATE OF EXAM: 06/27/2020 COMPARISON: NONE HISTORY: Elbow pain TECHNIQUE: 2 views upright FINDINGS: There is no sign of intestinal obstruction or pneumoperitoneum. Fecal pattern is normal. Th ere is no evidence of a mass. There are clips from cholecystectomy. Lung bases are clear. IMPRESSION: Nonacute abdomen.
[2020-06-27 21:18] LABS: ALT 11 U/L (4-34); AST 20 U/L (14-36); African American GFR (CKD) >90 (>60 ml/min/1.73 sqM); Albumin 4.4 g/dL (3.5-5.0); Alkaline Phosphatase 38 U/L (38-126); Amylase 52 U/L (30-110); Anion Gap 7 mmol/L; Blood Urea Nitrogen 10 mg/dL (7-17); Calcium 10.2 mg/dL (8.4-10.2); Carbon Dioxide 29 mmol/L (22-30); Chloride 102 mmol/L (98-107); Glucose 95 mg/dL (74-99); Lipase 110 U/L (23-300); Non-African American GFR(CKD) >90 (>60 ml/min/1.73 sqM); Potassium 3.9 mmol/L (3.5-5.1); Sodium 138 mmol/L (137-145); Total Bilirubin 0.5 mg/dL (0.2-1.3); Total Protein 6.8 g/dL (6.3-8.2)
[2020-06-27 22:03] VITALS: BP 126/85; PULSE 74; RESP 16; TEMP 99.1
== END 2020-06-27 22:12 | disposition home or self-care (01) ==
LOC: EC 19:41
DX: K21.9 Gastro-esophageal reflux disease without esophagitis (principal); Z90.49 Acquired absence of other specified parts of digestive tract
CPT/HCPCS: 36415; 80053; 82150; 83605; 83690; 85025; 81003; 74018; 99284; 96374; 96375; J2405

== ENCOUNTER 2020-09-12 17:52 | Inpatient (IN) | payer OTHER ==
[2020-09-12] MEDS ORDERED: LIDOCAINE 2% INJ 20 MG/ML (20 ML MDV) SQ STA (18:00)
[2020-09-12] MEDS ORDERED: KETOROLAC 15 MG/ML 1 ML VIAL IVP STA (18:00)
[2020-09-12] MEDS ORDERED: MORPHINE SULFATE 4 MG/ML SYRINGE IVP STA ×2 (18:03→18:49)
[2020-09-12 18:12] LABS: Basophils # (A) 0.1 k/uL (0-0.2); Basophils % (A) 1 %; Eosinophils # (A) 0.1 k/uL (0-0.7); Eosinophils % (A) 1 %; HCT 45.3 % (34.0-46.0); HGB 16.1 gm/dL (11.4-16.0); Lymphocytes # (A) 3.8 k/uL (1.0-4.8); Lymphocytes % (A) 28 %; MCH 32.1 pg (25.0-35.0); MCHC 35.6 g/dL (31.0-37.0); MCV 90.1 fL (80.0-100.0); Mean Platelet Volume 7.7; Monocytes # (A) 0.6 k/uL (0-1.0); Monocytes % (A) 5 %; Neutrophils # (A) 8.7 k/uL (1.3-7.7); Neutrophils % (A) 65 %; Platelet Count 358 k/uL (150-450); RBC 5.03 m/uL (3.80-5.40); RDW 11.8 % (11.5-15.5); WBC 13.4 k/uL (3.8-10.6)
--- NOTE | 2020-09-12 18:12 | XR ---
EXAMINATION TYPE: XR chest 1V portable DATE OF EXAM: 09/12/2020 COMPARISON: NONE HISTORY: Short of breath TECHNIQUE: Single view FINDINGS: There is a large left side pneumothorax with complete collapse of the left lung. Heart is s hifted slightly to the right side. There is some air underneath the left and right diaphragm. IMPRESSION: There is left side pneumothorax with some tension. There is also pneumoperitoneum. Pneumo peritoneum could be secondary to the tension pneumothorax. Normal heart.
[2020-09-12 18:17] LABS: HCG,Qualitative Serum Not Detected
[2020-09-12 18:18] LABS: ALT 16 U/L (4-34); AST 28 U/L (14-36); African American GFR (CKD) >90 (>60 ml/min/1.73 sqM); Albumin 4.9 g/dL (3.5-5.0); Alkaline Phosphatase 60 U/L (38-126); Anion Gap 11 mmol/L; Blood Urea Nitrogen 15 mg/dL (7-17); Calcium 11.2 mg/dL (8.4-10.2); Carbon Dioxide 22 mmol/L (22-30); Chloride 104 mmol/L (98-107); Glucose 118 mg/dL (74-99); Non-African American GFR(CKD) >90 (>60 ml/min/1.73 sqM); Potassium 4.5 mmol/L (3.5-5.1); Sodium 137 mmol/L (137-145); Total Bilirubin 0.6 mg/dL (0.2-1.3); Total Protein 7.6 g/dL (6.3-8.2)
--- NOTE | 2020-09-12 19:22 | ED ---
General Adult HPI - General Chief complaint: Shortness of Breath Stated complaint: KALYAN Time Seen by Provider: 09/12/20 18:00 Source: family, RN notes reviewed, old records reviewed Mode of arrival: ambulatory Limitations: no limitations - History of Present Illness Initial comments: Patient is a 34-year-old female with past medical history that is unremarkable who presents emergency Department after being sent from an outside emergency department for a spontaneous left-sided pneumothorax. Patient has been experiencing worsening dyspnea over the last 2 days as well as some abdominal gassiness sensation. She states that she feels like she has to belch but cannot. She presented to the emergency department for evaluation today an outside facility and they found the patient have 100% pneumothorax on the left side. She was stable on 6 L nasal cannula. A transfer her to our facility for definitive management. Patient denies any chest pain, abdominal pain, nausea, vomiting, headache. She endorses some dyspnea. She states it is improved on oxygen. She otherwise has no acute complaints. Denies any fevers, chills, cough, sick contacts. She has no other medical complaints at this time. Patient presented for her pneumothorax and dyspnea. - Related Data Home Medications Medication Instructions Recorded Confirmed Sertraline [Zoloft] 100 mg PO DAILY 03/20/19 09/12/20 Spironolactone [Aldactone] 50 mg PO DAILY 03/20/19 09/12/20 Methylphenidate HCl [Concerta] 54 mg PO DAILY@0700 06/27/20 09/12/20 Cyclobenzaprine [Flexeril] 10 mg PO HS 09/12/20 09/12/20 Methylphenidate HCl [Ritalin] 20 mg PO DAILY@1200 09/12/20 09/12/20 predniSONE See Taper PO HS 09/12/20 09/12/20 Allergies Allergy/AdvReac Type Severity Reaction Status Date / Time sulfamethoxazole Allergy Rash/Hives Verified 09/12/20 20:46 [From Bactrim] trimethoprim [From Bactrim] Allergy Rash/Hives Verified 09/12/20 20:46 Review of Systems ROS Statement: Those systems with pertinent positive or pertinent negative responses have been documented in the HPI. Review of Systems: CONST: Denies fever EYES: Denies blurry vision ENT: Denies nasal congestion C/V: Denies Chest pain RESP: Endorses dyspnea GI: Denies abdominal pain : Denies dysuria SKIN: Denies rash. MSK: Denies joint pain. NEURO: Denies headache ROS Other: All systems not noted in ROS Statement are negative. Past Medical History Past Medical History: No Reported History History of Any Multi-Drug Resistant Organisms: None Reported Past Surgical History: Appendectomy, Section, Cholecystectomy Past Anesthesia/Blood Transfusion Reactions: Unable to Obtain Additional Past Anesthesia/Blood Transfusion Reaction / Comment(s): No prior blood transfusions Past Psychological History: ADD/ADHD Smoking Status: Never smoker Past Alcohol Use History: Occasional Past Drug Use History: None Reported General Exam - General Exam Comments Initial Comments: General: Appears in mild distress. HEAD: Normal with no signs of head trauma. EYES: PERRLA, EOMI, conjunctiva normal, no discharge. ENT: Hearing grossly intact, normal oropharynx. There is some mild subcutaneous emphysema over the left clavicle. RESPIRATORY: No breath sounds over the left lung field. Clear breath sounds over the right lung field. C/V: Regular rate and rhythm. S1 and S2 auscultated, no edema, peripheral pulses 2+ and intact throughout ABD: Abd is soft, nontender, nondistended. The does seem to be a mildly distended upper abdomen. EXT: Normal range of motion, no obvious deformity SKIN: No rashes or lesions observed on exposed skin. NEURO: Alert and oriented 4. Limitations: no limitations Course Vital Signs 09/12/20 09/12/20 17:56 18:40 Pulse Rate 92 85 Respiratory 22 24 Rate Blood Pressure 115/98 132/106 O2 Sat by Pulse 100 100 Oximetry Procedures - Chest Tube Insertion Consent Obtained: written consent Side of Procedure: left Indication: Pneumothorax Placed on monitor/pulse oximetry: Yes Site Prep: Chloroprep, Sterile Drape Applied Local Anesthesia: Lidocaine 1% Amount (mLs): 12 Insertion Site: Other (2nd intercostal space, midclavicular line) Scalpel: #11 Tube Size (Ukrainian): Other (13 F) Returns: Air Sutured in Place: No (Sterile adhesive dressing applied) Attached to Suction: Yes Type of Suction: Pleuravac Repeat X-ray Results: Lung Inflated Patient Tolerated Procedure: no complications Medical Decision Making - Medical Decision Making Based on patient's presentation and physical exam, concern for spontaneous left-sided pneumothorax. This was confirmed on outside hospital chest x-ray, we will obtain a chest x-ray here in the emergency department. We'll also obtain a screening EKG as well as basic laboratory studies. Patient was placed on continuous cardiac monitoring with pulse oximetry as well as 6 L nasal cannula. She is satting 100%. Bedside ultrasound revealed absent lung sliding in the left lung field. Patient's chest x-ray showed a left-sided pneumothorax with pneumoperitoneum as well. This is likely secondary to a diaphragmatic defect. Laboratory studies are remarkable for a mild leukocytosis of 13.4. The remainder of her labs are unremarkable. EKG wasn't concerning for acute ischemic changes. I spoke with the patient regarding her pneumothorax and a splinter that we need to insert a chest tube. She was in agreement with the plan. Small bore chest tube was placed in the second intercostal space on the left side. This is performed after the patient was administered Toradol and morphine for pain management as well as locally anesthetized with subcu lidocaine. Patient tolerated the procedure well. Chest tube was connected to Pleur-evac and the intersection following placement. Repeat chest x-ray revealed lung expansion improper placement of the small bore chest tube. On reevaluation, patient is feeling improved. I expect her that she'll be admitted to the hospital for further monitoring. She was in agreement with the plan. Discussed with her the pneumoperitoneum is likely secondary to her pneumothorax and a diaphragmatic defect. I consulted cardiothoracic surgery, Dr. Dennis, who agreed with the plan and will evaluate the patient tomorrow. I also contact the patient's admitting physician who admits to [facility] with Dr. Gupta. They accepted the admission. Peg ent will therefore be admitted in serious condition to telemetry bed. - Lab Data Result diagrams: 09/12/20 17:55 09/12/20 17:55 Lab Results 09/12/20 09/12/20 Range/Units 17:55 17:55 WBC 13.4 H (3.8-10.6) k/uL RBC 5.03 (3.80-5.40) m/uL Hgb 16.1 H (11.4-16.0) gm/dL Hct 45.3 (34.0-46.0) % MCV 90.1 (80.0-100.0) fL MCH 32.1 (25.0-35.0) pg MCHC 35.6 (31.0-37.0) g/dL RDW 11.8 (11.5-15.5) % Plt Count 358 (150-450) k/uL MPV 7.7 Neutrophils % 65 % Lymphocytes % 28 % Monocytes % 5 % Eosinophils % 1 % Basophils % 1 % Neutrophils # 8.7 H (1.3-7.7) k/uL Lymphocytes # 3.8 (1.0-4.8) k/uL Monocytes # 0.6 (0-1.0) k/uL Eosinophils # 0.1 (0-0.7) k/uL Basophils # 0.1 (0-0.2) k/uL Sodium 137 (137-145) mmol/L Potassium 4.5 (3.5-5.1) mmol/L Chloride 104 (98-107) mmol/L Carbon Dioxide 22 (22-30) mmol/L Anion Gap 11 mmol/L BUN 15 (7-17) mg/dL Creatinine 0.77 (0.52-1.04) mg/dL Est GFR (CKD-EPI)AfAm >90 (>60 ml/min/1.73 sqM) Est GFR (CKD-EPI)NonAf >90 (>60 ml/min/1.73 sqM) Glucose 118 H (74-99) mg/dL Calcium 11.2 H (8.4-10.2) mg/dL Magnesium 2.0 (1.6-2.3) mg/dL Total Bilirubin 0.6 (0.2-1.3) mg/dL AST 28 (14-36) U/L ALT 16 (4-34) U/L Alkaline Phosphatase 60 (38-126) U/L Total Protein 7.6 (6.3-8.2) g/dL Albumin 4.9 (3.5-5.0) g/dL HCG, Qual Not Detected - EKG Data -: EKG Interpreted by Me EKG Comments: 12-lead Electrocardiogram Interpretation Note EKG was reviewed and interpreted by myself. 12-lead ECG performed at 1857 is interpreted by me as revealing normal sinus rhythm at a rate of 90 beats per minute. Mobile is normal. There were no ST or T wave abnormalities to suggest myocardial ischemia or injury. R wave progression across the precordium was satisfactory. By my interpretation this EKG is non-diagnostic for acute ischemia. Disposition Clinical Impression: Spontaneous pneumothorax, S/P chest tube placement, Pneumoperitoneum Disposition: ADMITTED IP TO THIS HOSP Condition: Serious
--- NOTE | 2020-09-12 19:42 | XR ---
EXAMINATION TYPE: XR chest 1V portable DATE OF EXAM: 09/12/2020 COMPARISON: 09/12/2020 HISTORY: Chest tube TECHNIQUE: Single view FINDINGS: There is left-sided chest tube. There is significant reexpansion of the left lung. There is approximate 10% left side pneumothorax. Trachea is midline. There is slight improvement in the pneum operitoneum. Heart size is normal. IMPRESSION: improvement in the pneumothorax and pneumoperitoneum compared to recent exam.
[2020-09-12] MEDS ORDERED: NALOXONE 0.4 MG/ML 1 ML VIAL IV PRN (19:55)
[2020-09-12] MEDS ORDERED: ACETAMINOPHEN TAB 325 MG TAB PO PRN (19:55)
[2020-09-12] MEDS: MORPHINE SULFATE 4 MG/ML SYRINGE IV PRN (21:42)
--- NOTE | 2020-09-12 22:41 | HP ---
HISTORY AND PHYSICAL DATE OF SERVICE: 09/12/2020. CHIEF COMPLAINTS: Shortness of breath and as well as abdominal discomfort. HISTORY OF PRESENT ILLNESS: This 34-year-old woman with a past medical history of multiple medical problems including , appendectomy, cholecystectomy being followed by Dr. Madelyn Cesar in the outpatient setting was having abdominal difficulties for the past couple days. Patient subsequently developed shortness of breath and the patient went to the Urgent Care Facility where the patient was found to have 100% pneumothorax on the left side. The patient was stable on 6 L nasal cannula. The patient subsequently underwent a chest tube drainage. The patient was admitted for further evaluation and treatment. There is no history of fever, rigors at this time. The postprocedure EKG was unremarkable with a post procedure chest x-ray reviewed personally by me showed improvement in the pneumothorax and pneumoperitoneum compared to the previous x-rays. There is no history of fever, rigors, chills at this time. PAST MEDICAL HISTORY: History of appendectomy, , cholecystectomy. MEDICATIONS: Prednisone, Zoloft, Flexeril, Aldactone, Ritalin, Concerta. ALLERGIES: BACTRIM. FAMILY HISTORY: No history of heart disease or strokes in the family. SOCIAL HISTORY: No history of smoking. No history of alcohol intake. No substance use. REVIEW OF SYSTEMS: ENT: No diminished vision. No diminished hearing. CARDIOVASCULAR: No angina. No palpation. RESPIRATORY: As mentioned earlier. GI as mentioned earlier. : No dysuria. NERVOUS SYSTEM: No numbness, weakness. ALLERGY/IMMUNOLOGY: No asthma or hayfever. MUSCULOSKELETAL: As mentioned earlier. HEMATOLOGY/ONCOLOGY: No history of anemia. ENDOCRINE: No history of diabetes or hypothyroidism. CONSTITUTIONAL: As mentioned earlier. DERMATOLOGY: Negative. RHEUMATOLOGY: Negative. PSYCHIATRIC: As mentioned earlier. PHYSICAL EXAMINATION: Alert and oriented times three. Pulse is 85. Blood pressure 132/106. Respirations 24, temperature normal. Pulse ox 100 percent on room air. HEENT: Conjunctivae normal. NECK: No JVD. CARDIOVASCULAR: S1, S2 muffled. RESPIRATORY: Breath sounds diminished in the left side. Chest tube present. ABDOMEN: Soft. Nontender. No mass palpable. LEGS: No edema. No swelling. NERVOUS SYSTEM: Higher functions as mentioned earlier. Moves all four limbs. No focal motor or sensory deficits. LYMPHATICS: No lymph nodes palpable in the neck, axillae or groin. SKIN: No ulcer. No rashes. No bleeding. JOINTS: No active deforming arthropathy. LAB STUDIES: WBC 13.4, calcium 11.2. ASSESSMENT: 1. Spontaneous pneumothorax, left, status post chest tube drainage. 2. Pneumoperitoneum for evaluation possibly secondary to tension pneumothorax. 3. History of appendectomy. 4. History of Caesarean section. 5. History of cholecystectomy. 6. History of attention-deficit disorder/ attention-deficit/hyperactivity disorder. 7. FULL CODE. RECOMMENDATIONS AND DISCUSSION: I recommend to continue current medications, management and symptomatic treatment. Continue with chest tube drainage. Symptomatic treatment. Otherwise, resume the home medications. Prognosis guarded and Dr. Lee will follow in the morning. MMODL / IJN: [id number] /
[2020-09-13] MEDS: MORPHINE SULFATE 4 MG/ML SYRINGE IV PRN (02:01)
[2020-09-13 07:31] LABS: Basophils % (A) 1 %; Eosinophils # (A) 0.1 k/uL (0-0.7); Eosinophils % (A) 1 %; HGB 14.5 gm/dL (11.4-16.0); Lymphocytes # (A) 2.2 k/uL (1.0-4.8); Lymphocytes % (A) 27 %; MCH 32.3 pg (25.0-35.0); MCHC 35.2 g/dL (31.0-37.0); MCV 91.6 fL (80.0-100.0); Mean Platelet Volume 7.6; Monocytes # (A) 0.4 k/uL (0-1.0); Monocytes % (A) 5 %; Neutrophils # (A) 5.3 k/uL (1.3-7.7); Neutrophils % (A) 65 %; Platelet Count 255 k/uL (150-450); RBC 4.48 m/uL (3.80-5.40); RDW 11.9 % (11.5-15.5); WBC 8.1 k/uL (3.8-10.6)
[2020-09-13 07:47] LABS: African American GFR (CKD) >90 (>60 ml/min/1.73 sqM); Anion Gap 3 mmol/L; Blood Urea Nitrogen 12 mg/dL (7-17); Calcium 9.2 mg/dL (8.4-10.2); Carbon Dioxide 26 mmol/L (22-30); Chloride 105 mmol/L (98-107); Glucose 94 mg/dL (74-99); Non-African American GFR(CKD) >90 (>60 ml/min/1.73 sqM); Potassium 4.2 mmol/L (3.5-5.1); Sodium 134 mmol/L (137-145)
--- NOTE | 2020-09-13 07:53 | P.GSCN ---
History of Present Illness Consult date: 09/13/20 Reason for Consult: Left-sided spontaneous pneumothorax, status post thoravent placement by the emergency room physicians Requesting physician: Abner Cesar History of present illness: This is a 34-year-old active female who follows on an outpatient basis with Dr. Madelyn Cesar. She has really no previous significant medical history other than migraines, ADHD, appendectomy, cholecystectomy, , and never smoker. Apparently for the last few days she has felt like she had a lot of gas in her abdomen which she has had in the past and has resolved on its own. Yesterday she was going up the stairs and became very short of breath in addition to the gassy abdomen and reported to an urgent care center where she was found to have complete left-sided pneumothorax with pneumoperitoneum on x- ray. She was oxygenating well on 6 L nasal cannula, states she has never been diagnosed with pneumothorax previously, denies any trauma to the chest or abdominal cavity. She was sent to [facility] for evaluation and treatment. Chest x-ray completed in the emergency room confirmed complete left-sided pneumothorax with pneumoperitoneum. A 13-[place] thoravent was placed by the emergency room physicians with re-expansion of the left lung. She was admitted for evaluation and treatment with consultation placed to cardiothoracic surgery for thoravent management. Review of Systems Review of systems was completed and was negative except as noted - Respiratory Reports as per HPI, Reports dyspnea - Gastrointestinal Reports as per HPI, Reports bloating, Reports excessive gas Past Medical History Additional Past Medical History / Comment(s): Migraines History of Any Multi-Drug Resistant Organisms: None Reported Past Surgical History: Appendectomy, Section, Cholecystectomy Past Anesthesia/Blood Transfusion Reactions: Unable to Obtain Additional Past Anesthesia/Blood Transfusion Reaction / Comm: No prior blood transfusions Past Psychological History: ADD/ADHD Smoking Status: Never smoker Past Alcohol Use History: Occasional Past Drug Use History: None Reported - Past Family History Mother Family Medical History: No Reported History Father Family Medical History: No Reported History Medications and Allergies Home Medications Medication Instructions Recorded Confirmed Type Sertraline [Zoloft] 100 mg PO DAILY 03/20/19 09/12/20 History Spironolactone [Aldactone] 50 mg PO DAILY 03/20/19 09/12/20 History Methylphenidate HCl [Concerta] 54 mg PO DAILY@0700 05/02/21 07/18/21 History Cyclobenzaprine [Flexeril] 10 mg PO HS 09/12/20 09/12/20 History Methylphenidate HCl [Ritalin] 20 mg PO DAILY@1200 09/12/20 09/12/20 History predniSONE See Taper PO HS 09/12/20 09/12/20 History Allergies Allergy/AdvReac Type Severity Reaction Status Date / Time sulfamethoxazole Allergy Rash/Hives Verified 09/12/20 20:46 [From Bactrim] trimethoprim [From Bactrim] Allergy Rash/Hives Verified 09/12/20 20:46 Surgical - Exam Vital Signs Pulse Resp BP Pulse Ox 92 22 115/98 100 09/12/20 17:56 09/12/20 17:56 09/12/20 17:56 09/12/20 17:56 CONSTITUTIONAL: Awake and alert, appears comfortable, cooperative, well-deve loped, well-nourished, no acute distress EYES: Pupils equal, round, reactive to light, normal ocular movement ENT: Moist mucous membranes without oral lesions present NECK: No masses, no bruits, trachea midline RESPIRATORY: Lungs sounds clear to auscultation bilaterally. Respirations even, nonlabored. Currently on room air with oxygen saturation 97%. Strong cough. No clubbing or cyanosis present. Left-sided thoravent present, connected to continuous wall suction, no air leak present including with coughing CARDIOVASCULAR: S1, S2 present. Regular rate and rhythm, sinus rhythm on tel emetry. Palpable peripheral pulses bilaterally. No edema present. No calf pain or tenderness noted. GASTROINTESTINAL: Abdomen soft, nontender, nondistended without masses or organomegaly noted. There is no rebound or guarding present. Active bowel sounds present 4 quadrants. GENITOURINARY: Deferred INTEGUMENTARY: Skin is warm and dry with evidence of good perfusion. NEUROLOGIC: Cranial nerves II through XII intact, normal coordination, no obvious motor or sensory deficits, speech is normal MUSKULOSKELETAL: Able to move all extremities, strength equal bilaterally, normal posture PSYCHIATRIC: Alert and oriented to person place and time, appropriate affect, intact judgment and insight Results - Labs 09/13/20 07:19 09/12/20 17:55 Abnormal Lab Results - Last 24 Hours (Table) 09/12/20 09/12/20 Range/Units 17:55 17:55 WBC 13.4 H (3.8-10.6) k/uL Hgb 16.1 H (11.4-16.0) gm/dL Neutrophils # 8.7 H (1.3-7.7) k/uL Glucose 118 H (74-99) mg/dL Calcium 11.2 H (8.4-10.2) mg/dL Diabetes panel 09/12/20 Range/Units 17:55 Sodium 137 (137-145) mmol/L Potassium 4.5 (3.5-5.1) mmol/L Chloride 104 (98-107) mmol/L Carbon Dioxide 22 (22-30) mmol/L BUN 15 (7-17) mg/dL Creatinine 0.77 (0.52-1.04) mg/dL Glucose 118 H (74-99) mg/dL Calcium 11.2 H (8.4-10.2) mg/dL AST 28 (14-36) U/L ALT 16 (4-34) U/L Alkaline Phosphatase 60 (38-126) U/L Total Protein 7.6 (6.3-8.2) g/dL Albumin 4.9 (3.5-5.0) g/dL Calcium panel 09/12/20 Range/Units 17:55 Calcium 11.2 H (8.4-10.2) mg/dL Albumin 4.9 (3.5-5.0) g/dL Pituitary panel 09/12/20 Range/Units 17:55 Sodium 137 (137-145) mmol/L Potassium 4.5 (3.5-5.1) mmol/L Chloride 104 (98-107) mmol/L Carbon Dioxide 22 (22-30) mmol/L BUN 15 (7-17) mg/dL Creatinine 0.77 (0.52-1.04) mg/dL Glucose 118 H (74-99) mg/dL Calcium 11.2 H (8.4-10.2) mg/dL Adrenal panel 09/12/20 Range/Units 17:55 Sodium 137 (137-145) mmol/L Potassium 4.5 (3.5-5.1) mmol/L Chloride 104 (98-107) mmol/L Carbon Dioxide 22 (22-30) mmol/L BUN 15 (7-17) mg/dL Creatinine 0.77 (0.52-1.04) mg/dL Glucose 118 H (74-99) mg/dL Calcium 11.2 H (8.4-10.2) mg/dL Total Bilirubin 0.6 (0.2-1.3) mg/dL AST 28 (14-36) U/L ALT 16 (4-34) U/L Alkaline Phosphatase 60 (38-126) U/L Total Protein 7.6 (6.3-8.2) g/dL Albumin 4.9 (3.5-5.0) g/dL - Imaging Chest x-ray: report reviewed, image reviewed EKG: image reviewed Assessment and Plan Assessment: 1. Left-sided spontaneous pneumothorax, first event, status post thoravent placement by the emergency room physicians 2. Pneumoperitoneum 3. Pain secondary to the above 4. Never smoker 5. History of migraines, ADHD Plan: The patient was seen and examined at the bedside. Chart/diagnostics were reviewed. The case will be discussed in detail with Dr. Valle. At this time thoravent was placed to [facility]. Will repeat chest x-ray later today. We'll continue to monitor daily chest x-rays. Incentive spirometry ordered and should be encouraged. Increase activity, ambulate as tolerated. Pain control with current medication regimen, Toradol added. CT of the chest, abdomen and pelvis ordered, will review when completed. Discussion had with the patient regarding possibility of recurrent spontaneous pneumothorax in the future, and if this recurs there is high likelihood of continued recurrence and surgery would be offered at that time. No surgical intervention warranted currently. The patient verbalized understanding. Medical management of other comorbidities per primary care service. More recommendations to follow. Thank you for this consult. We will follow along with you. Time with Patient: Greater than 30
--- NOTE | 2020-09-13 08:24 | XR ---
EXAMINATION TYPE: XR chest 1V DATE OF EXAM: 09/13/2020 COMPARISON: Chest x-ray 09/12/2020 HISTORY: Pneumothorax, chest tube TECHNIQUE: Single frontal view of the chest is obtained. FINDINGS: Free air is present within the abdomen, there is lucency beneath the hemidiaphragms. Left- sided chest tube is in place. Minimal left apical pneumothorax is noted. No evident effusion. Cardiac mediastinal silhouette is stable. Bandlike areas of increased attenuation likely reflect atelectasis within the lungs. Surgical clips are present in the right upper quadrant. IMPRESSION: Pneumoperitoneum, minimal left apical pneumothorax.
[2020-09-13] MEDS: SPIRONOLACTONE 25 MG TAB PO SCH (09:11)
[2020-09-13] MEDS: SERTRALINE 100 MG TAB PO SCH (09:12)
[2020-09-13] MEDS: KETOROLAC 15 MG/ML 1 ML VIAL IVP SCH ×3 (09:12→20:06)
[2020-09-13] MEDS: METHYLPHENIDATE HCL 5 MG TAB PO SCH ×2 (09:44→13:00)
[2020-09-13] MEDS: IOPAMIDOL CONTRAST (ORAL USE) VIAL PO PRN ×2 (10:02→11:00)
--- NOTE | 2020-09-13 11:13 | P.PN ---
Subjective Progress Note Date: 09/13/20 This is a 34-year-old female admitted with new left-sided spontaneous pneumothorax, status thoravent placecment. Patient denies any recent trauma, car accident or fall. She reports playing tennis and had experienced some pain in opposite shoulder. Developed significant amount of audible gurgling gas 2-3 days prior to event accompanied by worsening shortness of breath. Denied nausea or vomiting and reports regular bowel movements. Denies abdominal pain.Chest x- ray this morning reporting minimal left apical pneumothorax noted, no evident effusion, free air present within the abdomen with lucency beneath the hemidiaphragms. CT of chest, abdomen and pelvis pending. Maintaining O2 sats in the high 90s on room air. Afebrile, normal WBC. Reports discomfort of thoravent site, Toradol added to med regimen. Objective - Vital Signs Vital signs: Vital Signs Temp 98.2 F 09/12/20 22:00 Pulse 87 09/13/20 04:00 Resp 18 09/13/20 04:00 BP 109/72 09/13/20 04:00 Pulse Ox 97 09/13/20 04:00 Intake & Output 09/12/20 09/13/20 09/13/20 18:59 06:59 18:59 Intake Total 960 240 Output Total 0 0 Balance 0 960 240 Weight 58.967 kg 55.5 kg Intake: Oral 960 240 Output: Chest Tube Drainage 0 0 Thora-Vent Left Mid- 0 0 Clavicular Chest Other: Voiding Method Toilet - Exam PHYSICAL EXAM: VITAL SIGNS: As above GENERAL: Sitting up in bed, no acute distress HEENT: Conjunctivae normal. eyes normal. Oral mucosa moist NECK: No JVD. No thyroid enlargement. CARDIOVASCULAR: S1, S2 regular. No murmur RESPIRATION: Clear to auscultation,Breath sounds diminished in the bases. No rhonchi or crackles. No bronchial breathing. Left sided thoravent present. ABDOMEN: Soft, nondistended, nontender. Dull to percussion. No guarding. no masses palpable. No ascites, No hepatosplenomegaly.Bowel sounds heard. LEGS: No edema. no swelling PSYCHIATRY: Alert and oriented X3, mood and affect normal. NERVOUS SYSTEM: Cranial N 2-12 grossly normal. Moves all 4 limbs. No focal deficits. Strength and sensation grossly intact. Skin: Warm and dry, no rash - Labs CBC & Chem 7: 09/13/20 07:19 09/13/20 07:19 Labs: Abnormal Lab Results - Last 24 Hours (Table) 09/12/20 09/12/20 09/13/20 Range/Units 17:55 17:55 07:19 WBC 13.4 H (3.8-10.6) k/uL Hgb 16.1 H (11.4-16.0) gm/dL Neutrophils # 8.7 H (1.3-7.7) k/uL Sodium 134 L (137-145) mmol/L Glucose 118 H (74-99) mg/dL Calcium 11.2 H (8.4-10.2) mg/dL Assessment and Plan Assessment: Left-sided spontaneous pneumothorax, without history of prior ,etiology unclear, status post thoravent placement. Pneumoperitoneum for evaluation History of cholecystectomy History of appendectomy History ADD, ADHD Plan: Continue on current medication regime ,monitoring and symptomatic treatment. CT of chest, abdomen and pelvis pending. General surgery consulted regarding pneumoperitoneum/chest x-ray continues to report free air within the abdomen. PPI ordered for GI prophylaxis.Thoravent management as per CTS. The impression and plan of care has been dictated as directed. : I performed a history and examination of this patient, discussed the same with the dictator. I agree with the dictator's note ,documented as a scribe. Any additional findings or plans will be noted.
[2020-09-13] MEDS ORDERED: PANTOPRAZOLE 40 MG/10 ML VIAL IVP SCH (11:15)
--- NOTE | 2020-09-13 13:02 | P.GSCN ---
History of Present Illness Consult date: 09/13/20 History of present illness: 34-year-old female presented to the emergency department from urgent care due to shortness of breath. She states that over few days, she again feeling short of breath with no other significant symptoms. She denied any trauma to the chest. On workup at the urgent care, she was found to have a pneumothorax. Secondary to this, she was sent to the emergency department and thoravent was placed for pneumothorax. Multiple chest x-rays were performed with significant finding of pneumoperitoneum along with pneumothorax. Patient denies any abdominal pain. She denies any history of smoking. Workup currently reveals no current leukocytosis, no febrile activity, no tachycardia. She appears to have asymptomatic pneumoperitoneum at this time. Thoravent is currently attached to [email or web address]. Review of Systems All systems: negative Past Medical History Past Medical History: No Reported History Additional Past Medical History / Comment(s): Migraines History of Any Multi-Drug Resistant Organisms: None Reported Past Surgical History: Appendectomy, Section, Cholecystectomy Past Anesthesia/Blood Transfusion Reactions: Unable to Obtain Additional Past Anesthesia/Blood Transfusion Reaction / Comm: No prior blood transfusions Past Psychological History: ADD/ADHD Smoking Status: Never smoker Past Alcohol Use History: Occasional Past Drug Use History: None Reported - Past Family History Mother Family Medical History: No Reported History Father Family Medical History: No Reported History Medications and Allergies Home Medications Medication Instructions Recorded Confirmed Type Sertraline [Zoloft] 100 mg PO DAILY 03/20/19 09/12/20 History Spironolactone [Aldactone] 50 mg PO DAILY 03/20/19 09/12/20 History Methylphenidate HCl [Concerta] 54 mg PO DAILY@0700 06/27/20 09/12/20 History Cyclobenzaprine [Flexeril] 10 mg PO HS 09/12/20 09/12/20 History Methylphenidate HCl [Ritalin] 20 mg PO DAILY@1200 09/12/20 09/12/20 History predniSONE See Taper PO HS 09/12/20 09/12/20 History Allergies Allergy/AdvReac Type Severity Reaction Status Date / Time sulfamethoxazole Allergy Rash/Hives Verified 09/12/20 20:46 [From Bactrim] trimethoprim [From Bactrim] Allergy Rash/Hives Verified 09/12/20 20:46 Surgical - Exam Osteopathic Statement: *. No significant issues noted on an osteopathic structu ral exam other than those noted in the History and Physical/Consult. Vital Signs Pulse Resp BP Pulse Ox 92 22 115/98 100 09/12/20 17:56 09/12/20 17:56 09/12/20 17:56 09/12/20 17:56 - General well nourished, no distress - Eyes PERRL - ENT no hearing loss - Neck trachea midline - Respiratory normal respiratory effort - Abdomen Soft, nontender, nondistended, no rebound, no guarding - Psychiatric oriented to time, oriented to person, oriented to place Results - Labs 09/13/20 07:19 09/13/20 07:19 Abnormal Lab Results - Last 24 Hours (Table) 09/12/20 09/12/20 09/13/20 Range/Units 17:55 17:55 07:19 WBC 13.4 H (3.8-10.6) k/uL Hgb 16.1 H (11.4-16.0) gm/dL Neutrophils # 8.7 H (1.3-7.7) k/uL Sodium 134 L (137-145) mmol/L Glucose 118 H (74-99) mg/dL Calcium 11.2 H (8.4-10.2) mg/dL Diabetes panel 09/12/20 09/13/20 Range/Units 17:55 07:19 Sodium 137 134 L (137-145) mmol/L Potassium 4.5 4.2 (3.5-5.1) mmol/L Chloride 104 105 (98-107) mmol/L Carbon Dioxide 22 26 (22-30) mmol/L BUN 15 12 (7-17) mg/dL Creatinine 0.77 0.53 (0.52-1.04) mg/dL Glucose 118 H 94 (74-99) mg/dL Calcium 11.2 H 9.2 (8.4-10.2) mg/dL AST 28 (14-36) U/L ALT 16 (4-34) U/L Alkaline Phosphatase 60 (38-126) U/L Total Protein 7.6 (6.3-8.2) g/dL Albumin 4.9 (3.5-5.0) g/dL Calcium panel 09/12/20 09/13/20 Range/Units 17:55 07:19 Calcium 11.2 H 9.2 (8.4-10.2) mg/dL Albumin 4.9 (3.5-5.0) g/dL Pituitary panel 09/12/20 09/13/20 Range/Units 17:55 07:19 Sodium 137 134 L (137-145) mmol/L Potassium 4.5 4.2 (3.5-5.1) mmol/L Chloride 104 105 (98-107) mmol/L Carbon Dioxide 22 26 (22-30) mmol/L BUN 15 12 (7-17) mg/dL Creatinine 0.77 0.53 (0.52-1.04) mg/dL Glucose 118 H 94 (74-99) mg/dL Calcium 11.2 H 9.2 (8.4-10.2) mg/dL Adrenal panel 09/12/20 09/13/20 Range/Units 17:55 07:19 Sodium 137 134 L (137-145) mmol/L Potassium 4.5 4.2 (3.5-5.1) mmol/L Chloride 104 105 (98-107) mmol/L Carbon Dioxide 22 26 (22-30) mmol/L BUN 15 12 (7-17) mg/dL Creatinine 0.77 0.53 (0.52-1.04) mg/dL Glucose 118 H 94 (74-99) mg/dL Calcium 11.2 H 9.2 (8.4-10.2) mg/dL Total Bilirubin 0.6 (0.2-1.3) mg/dL AST 28 (14-36) U/L ALT 16 (4-34) U/L Alkaline Phosphatase 60 (38-126) U/L Total Protein 7.6 (6.3-8.2) g/dL Albumin 4.9 (3.5-5.0) g/dL Assessment and Plan Plan: 34-year-old female with spontaneous pneumothorax status post thoravent placement. On workup, she is also found to have a pneumoperitoneum. Patient denies any abdominal pain over the past few days. She currently denies any abdominal pain or distention. She has had no febrile episodes and has no tachycardia. There are no signs of sepsis. There is no sign of any perforated viscus. CT of the chest, abdomen and pelvis is pending at this time for further evaluation. Based on current findings, it appears that pneumoperitoneum may be caused by leakage of pneumothorax into the abdominal cavity. There is a possibi lity of a diaphragmatic defect causing this. Based on the fact that the patient does not have any peritoneal signs or any signs of an acute abdomen and no signs of sepsis or perforated viscus, there is no plan for any urgent surgical intervention. We will continue to follow. We will await CT results as well.
[2020-09-13] MEDS: METHYLPHENIDATE HCL 10 MG TAB PO SCH (13:17)
--- NOTE | 2020-09-13 18:57 | CT ---
EXAMINATION TYPE: CT ChestAbdPelvis w con DATE OF EXAM: 09/13/2020 INDICATION: abd pain, chest tube COMPARISON: CT abdomen and pelvis 03/20/2019 CT DLP: 750.6 mGycm CONTRAST: Performed with Oral Contrast and with IV Contrast, patient injected with 100 mL of Isovue 300. TECHNIQUE: Axial images at 5 mm thick sections. Reconstructed images in the coronal plane. Delayed images through the kidneys. FINDINGS: CT CHEST: Portion of the thyroid visualized is normal. Chest tube enters on the anterior left is directed towards the left infrahilar region. There is mild infiltrate adjacent to the major fissure on the left. No sizable pneumothorax is eviden t. Minimal free air is anterior to the heart. No enlarged mediastinal or hilar adenopathy is evident. The ascending aorta diameter at the level of the main pulmonary artery is 2.9 cm. The main pulmonary artery diameter at the bifurcation is 2.[address] ABDOMEN: There is a pneumoperitoneum present. Some free air is also noted posterior to the liver a djacent to the right kidney and in the josefina hepatis region. In discussion with the nurse, no abdomin al surgery as been performed. The patient reports no recent change in her abdominal pain but complain s of pain at the incision of the prior chest tube site. Liver: Normal Spleen: Normal Pancreas: Normal Adrenal glands: The adrenal glands are normal. Gallbladder: Surgically absent Kidneys: No masses are evident. No hydronephrosis is present. No cysts are present. Delayed images were obtained through the kidneys, which remain unremarkable. Aorta: Normal Inferior vena cava: Normal. CT PELVIS: Loops of bowel distended with oral contrast. Unremarkable. No extravasation of contrast is identified . There are loops of bowel which are incompletely distended or lack oral contrast limiting their eval uation. Appendix: Not identified. No dilated tubular structure with inflammatory changes are identified. Urinary bladder: Normal. Genitourinary structures: Uterus is normal. There may be a 1.4 cm cyst on the left ovary. Right ovary appears normal Osseous structures: No suspicious lytic or sclerotic lesions. Report was called to the floor nurse Los mercado by Dr. Aquino by telephone at time of interpretation. IMPRESSIONS: 1. Pneumoperitoneum of unknown etiology. There is some air in the josefina hepatis region and adjacent t o the liver suggesting a right upper quadrant source for the pneumoperitoneum. 2. Extremely minimal residual pneumothorax of the left lung adjacent to the heart. Pneumothorax is es sentially resolved. 3. Probable atelectasis along the left major fissure. Pneumonia could be considered. Follow-up is rec ommended. 4. Small 1.4 cm left ovarian cyst A [place] level critical message alert has been initiated for Lonnie Gupta MD via the [facility] on 09/13/2020 6:53 PM. This message alert has been sent to Lonnie Gupta MD via the preferences provided by the clinician for the receipt of Radiology Critical Findings. Message ID [id number].
[2020-09-13] MEDS: CYCLOBENZAPRINE 10 MG TAB PO SCH (20:07)
[2020-09-14] MEDS: KETOROLAC 15 MG/ML 1 ML VIAL IVP SCH ×5 (00:05→23:17)
[2020-09-14] MEDS: METHYLPHENIDATE HCL 5 MG TAB PO SCH ×2 (06:13→14:53)
--- NOTE | 2020-09-14 08:05 | P.PN ---
Subjective Progress Note Date: 09/14/20 Principal diagnosis: Left-sided spontaneous pneumothorax, first event, status post thoravent placement by the emergency room physicians, pneumoperitoneum. History of migraines, ADHD, never smoker Patient's currently sitting up in bed in the cardiac stepdown unit in no acute distress. States she does still have some pain around the thoravent site but controlled with current medication regimen, denies any abdominal pain, states she just feels full of gas. She has been ambulatory without difficulty. Remains afebrile, oxygenating well on room air. Thoravent placed to [facility] yesterday, chest x-ray reviewed, stable. There is some fluctuation in the red diaphragm with coughing. No other new concerns. Objective - Vital Signs Vital signs: Vital Signs Temp 98.2 F 09/13/20 20:00 Pulse 69 09/14/20 04:00 Resp 18 09/14/20 04:00 BP 120/78 09/14/20 04:00 Pulse Ox 97 09/14/20 04:00 Intake & Output 09/13/20 09/14/20 09/14/20 18:59 06:59 18:59 Intake Total 600 960 Balance 600 960 Weight 60.2 kg Intake: Oral 600 960 Other: Voiding Method Toilet # Voids 1 2 - Exam CONSTITUTIONAL: Appears comfortable, cooperative, no acute distress RESPIRATORY: Lungs sounds diminished bilaterally. Respirations even, nonlabored. Currently on room air with oxygen saturation 97%. Able to achieve 1000 mL on incentive spirometry. Strong cough. CARDIOVASCULAR: S1, S2 present. Regular rate and rhythm, sinus rhythm on telemetry. Palpable peripheral pulses bilaterally. No edema present. No calf pain or tenderness noted. SCDs present. GASTROINTESTINAL: Abdomen soft, nontender, nondistended. Active bowel sounds present 4 quadrants. Tolerating diet. GENITOURINARY: Continues to void clear, yellow urine INTEGUMENTARY: Skin is warm and dry with evidence of good perfusion. NEUROLOGIC: Cranial nerves II through XII intact MUSKULOSKELETAL: Able to move all extremities, strength equal bilaterally, gait normal PSYCHIATRIC: Alert and oriented to person place and time, appropriate affect, i ntact judgment and insight INVASIVE LINES AND TUBES: Left sided thoravent present to [facility], flu ctuation present the right diaphragm with coughing - Labs CBC & Chem 7: 09/13/20 07:19 09/13/20 07:19 - Imaging and Cardiology Chest x-ray: image reviewed CT scan - chest: report reviewed, image reviewed CT Scan - head: report reviewed, image reviewed CT scan - pelvis: report reviewed, image reviewed Assessment and Plan Assessment: 1. Left-sided spontaneous pneumothorax, first event, status post thoravent placement by the emergency room physicians 2. Pneumoperitoneum 3. Pain secondary to the above 4. Never smoker 5. History of migraines, ADHD Plan: 1. Will plug thoravent and repeat cxr later today. If no PTX will dc thoravent 2. Will monitor daily chest x-rays 3. Encourage incentive spirometry use 10 times every hour while awake 4. Pain controlled current medication regimen 5. Increase activity, ambulate as tolerated 6. Medical management with a comorbidities per primary care service 7. More recommendations to follow Time with Patient: Greater than 30
[2020-09-14] MEDS: SPIRONOLACTONE 25 MG TAB PO SCH (08:09)
[2020-09-14] MEDS: SERTRALINE 100 MG TAB PO SCH (08:09)
[2020-09-14] MEDS: PANTOPRAZOLE 40 MG TABLET PO SCH (08:09)
--- NOTE | 2020-09-14 08:22 | XR ---
EXAMINATION TYPE: XR chest 2V DATE OF EXAM: 09/14/2020 COMPARISON: Chest x-ray 09/13/2020 HISTORY: Pneumothorax, chest tube TECHNIQUE: Frontal and lateral views of the chest are obtained. FINDINGS: Pneumoperitoneum persists. Left-sided chest tube is again noted, tip is at the level the l eft hilum. Minimal left apical pneumothorax shows a similar appearance. No evident effusion. Cardiac mediastinal silhouette is stable. There is some improvement in atelectasis in the left midlung. IMPRESSION: Pneumoperitoneum, left chest tube remains in place with the tip at the left hilum with m inimal pneumothorax.
--- NOTE | 2020-09-14 10:45 | P.PN ---
Subjective Progress Note Date: 09/14/20 Patient seen and examined at bedside. No acute events. Complains of some pain around both orbits site. Denies any abdominal pain. Denies nausea or vomiting. Denies fevers. Objective - Vital Signs Vital signs: Vital Signs Temp 98.3 F 09/14/20 08:07 Pulse 98 09/14/20 08:07 Resp 20 09/14/20 08:07 BP 121/80 09/14/20 08:07 Pulse Ox 96 09/14/20 08:07 Intake & Output 09/13/20 09/14/20 09/14/20 18:59 06:59 18:59 Intake Total 600 960 240 Balance 600 960 240 Weight 60.2 kg Intake: Oral 600 960 240 Other: Voiding Method Toilet # Voids 1 2 - Constitutional General appearance: Present: cooperative, no acute distress - Respiratory Details: Left-sided Thora-Vent in place - Gastrointestinal Gastrointestinal Comment(s): Soft, nontender, nondistended, no rebound, no guarding - Psychiatric Psychiatric: Present: A&O x's 3 - Labs CBC & Chem 7: 09/13/20 07:19 09/13/20 07:19 Assessment and Plan Plan: CT of the abdomen and pelvis was reviewed yesterday. Pneumoperitoneum is present. There does not appear to be any extravasation of oral contrast and no free fluid in the abdomen to point towards a perforated viscus. Again, patient's abdominal exam is benign over the past 24 hours and this has also been reported since admission. There continues to be no evidence of tachycardia or signs of sepsis. At this point, there does not appear to be an intra-abdominal source of infection, perforation or source of pneumoperitoneum. This was discussed in depth with the patient. Option of diagnostic laparoscopy was offered to the patient, however as there is no active diagnosis, she prefers medical management at this point, which is reasonable. We will continue to closely monitor the patient for any clinical changes. Continue with medical management and cardiothoracic management.
[2020-09-14] MEDS: METHYLPHENIDATE HCL 10 MG TAB PO SCH (11:07)
--- NOTE | 2020-09-14 13:25 | XR ---
EXAMINATION TYPE: XR chest 2V DATE OF EXAM: 09/14/2020 COMPARISON: Chest x-ray 09/14/2020 HISTORY: Thorax, pneumoperitoneum TECHNIQUE: Frontal and lateral views of the chest are obtained. FINDINGS: Pneumoperitoneum persists. The left apical pneumothorax is minimal. Left-sided chest tube shows a different configuration, is coursing in a cephalad direction in mediastinal silhouette is sta ble. There are overlying leads. IMPRESSION: Minimal left apical pneumothorax, chest tube appears repositioned. Pneumoperitoneum is a gain noted.
[2020-09-14] MEDS: CYCLOBENZAPRINE 10 MG TAB PO SCH (20:29)
[2020-09-15] MEDS: KETOROLAC 15 MG/ML 1 ML VIAL IVP SCH ×2 (06:01→12:27)
[2020-09-15] MEDS: METHYLPHENIDATE HCL 5 MG TAB PO SCH ×2 (06:01→12:28)
[2020-09-15 06:44] LABS: Basophils % (A) 1 %; Eosinophils # (A) 0.1 k/uL (0-0.7); Eosinophils % (A) 2 %; HCT 41.2 % (34.0-46.0); HGB 13.6 gm/dL (11.4-16.0); Lymphocytes % (A) 32 %; MCH 31.2 pg (25.0-35.0); MCHC 32.9 g/dL (31.0-37.0); MCV 94.7 fL (80.0-100.0); Mean Platelet Volume 8.1; Monocytes # (A) 0.4 k/uL (0-1.0); Monocytes % (A) 6 %; Neutrophils # (A) 3.7 k/uL (1.3-7.7); Neutrophils % (A) 59 %; Platelet Count 222 k/uL (150-450); RBC 4.35 m/uL (3.80-5.40); RDW 11.9 % (11.5-15.5); WBC 6.3 k/uL (3.8-10.6)
--- NOTE | 2020-09-15 07:38 | P.PN ---
Subjective Progress Note Date: 09/15/20 Principal diagnosis: Left-sided spontaneous pneumothorax, first event, status post thoravent placement by the emergency room physicians, pneumoperitoneum. History of migraines, ADHD, never smoker Patient's currently laying in bed in the cardiac stepdown unit in no acute distress. States she does still have minimal pain around the thoravent site but controlled with current medication regimen, denies any abdominal pain. She has been ambulatory without difficulty. Remains afebrile, oxygenating well on room air. Thoravent discontinued yesterday, chest x-ray reviewed, stable. No other new concerns. Objective - Vital Signs Vital signs: Vital Signs Temp 98.3 F 09/14/20 20:00 Pulse 70 09/15/20 04:00 Resp 18 09/15/20 04:00 BP 108/70 09/15/20 04:00 Pulse Ox 97 09/15/20 04:00 Intake & Output 09/14/20 09/15/20 09/15/20 18:59 06:59 18:59 Intake Total 360 Balance 360 Weight 60.7 kg Intake: Oral 360 Other: Voiding Method Toilet Toilet # Voids 3 1 # Bowel Movements 1 - Exam CONSTITUTIONAL: Appears comfortable, cooperative, no acute distress RESPIRATORY: Lungs sounds diminished bilaterally. Respirations even, nonlabored. Currently on room air with oxygen saturation 97%. Able to achieve 1500 mL on incentive spirometry. Strong cough. CARDIOVASCULAR: S1, S2 present. Regular rate and rhythm, sinus rhythm on telemetry. Palpable peripheral pulses bilaterally. No edema present. No calf pain or tenderness noted. GASTROINTESTINAL: Abdomen soft, nontender, nondistended. Active bowel sounds present 4 quadrants. Tolerating diet. GENITOURINARY: Continues to void clear, yellow urine INTEGUMENTARY: Skin is warm and dry with evidence of good perfusion. NEUROLOGIC: Cranial nerves II through XII intact MUSKULOSKELETAL: Able to move all extremities, strength equal bilaterally, gait normal PSYCHIATRIC: Alert and oriented to person place and time, appropriate affect, intact judgment and insight - Labs CBC & Chem 7: 09/15/20 05:53 09/13/20 07:19 - Imaging and Cardiology Chest x-ray: image reviewed Assessment and Plan Assessment: 1. Left-sided spontaneous pneumothorax, first event, status post thoravent placement by the emergency room physicians 2. Pneumoperitoneum 3. Pain secondary to the above 4. Never smoker 5. History of migraines, ADHD Plan: 1. Thoravent discontinued yesterday, repeat CXR stable 2. Encourage incentive spirometry use 10 times every hour while awake 3. Pain control with current medication regimen 4. Increase activity, ambulate as tolerated 5. Medical management with a comorbidities per primary care service 6. Will sign off, please call us with any further questions Time with Patient: Greater than 30
--- NOTE | 2020-09-15 07:44 | P.PN ---
Subjective Progress Note Date: 09/14/20 She is resting in NAD, denies any shortness of breath or abdominal pain. She continues to note some soreness around her thoravent site. CXR showing no residual pneumothorax and CT abdomen did not show any extravasation of oral contrast. Objective - Vital Signs Vital signs: Vital Signs Temp 98.3 F 09/14/20 20:00 Pulse 70 09/15/20 04:00 Resp 18 09/15/20 04:00 BP 108/70 09/15/20 04:00 Pulse Ox 97 09/15/20 04:00 Intake & Output 09/14/20 09/15/20 09/15/20 18:59 06:59 18:59 Intake Total 360 Balance 360 Weight 60.7 kg Intake: Oral 360 Other: Voiding Method Toilet Toilet # Voids 3 1 # Bowel Movements 1 - Exam Gen: well developed, well nourished, NAD CV: RRR, no murmur Lungs: clear throughout Abd: soft, nontender - Labs CBC & Chem 7: 09/15/20 05:53 09/13/20 07:19 Assessment and Plan Plan: Pneumothorax resolving, thoravent management per CT surgery. No evidence of continued pneumothorax. Surgery following with pneumoperitoneum, unlikely per forated viscera. No acute intervention. Repeat XR tomorrow
[2020-09-15 07:50] VITALS: RESP 16
[2020-09-15] MEDS: SPIRONOLACTONE 25 MG TAB PO SCH (07:52)
[2020-09-15] MEDS: SERTRALINE 100 MG TAB PO SCH (07:52)
[2020-09-15] MEDS: PANTOPRAZOLE 40 MG TABLET PO SCH (07:53)
--- NOTE | 2020-09-15 10:26 | XR ---
EXAMINATION TYPE: XR chest 2V DATE OF EXAM: 09/15/2020 COMPARISON: Chest x-ray 09/14/2020 HISTORY: Pneumothorax TECHNIQUE: Frontal and lateral views of the chest are obtained. FINDINGS: Left-sided chest tube has been removed. Minimal left apical pneumothorax persists. Pneumop eritoneum is again seen. Cardiac mediastinal silhouette is unchanged. No evident pleural effusion. IMPRESSION: Interval chest tube removal.
[2020-09-15 12:01] VITALS: BP 124/83; PULSE 88; TEMP 98.4
[2020-09-15] MEDS: METHYLPHENIDATE HCL 10 MG TAB PO SCH (12:28)
--- NOTE | 2020-09-15 12:33 | P.DS ---
Providers Date of admission: 09/12/20 19:55 Expected date of discharge: 09/15/20 Attending physician: William Lee MD Consults: 09/12/20 19:55 Consult Physician Stat Consulting Provider: Taz Dennis Consult Reason/Comments: Chest tube management, spontaneous pneumothorax Do you want consulting provider notified?: Already Contacted 09/13/20 10:02 Consult Physician Routine Consulting Provider: Roshan Roe Consult Reason/Comments: Pneumoperitoneum Do you want consulting provider notified?: Yes Primary care physician: Madelyn Cesar [facility] Course: Final Diagnoses: Pneumobilia secondary to pneumothorax, suspected.No history of prior,etiology unclear, status post thoravent placement. Pneumoperitoneum, etiology unclear, diagnostic laparoscopy offered, patient declined, prefers medical management at this time History of cholecystectomy History of appendectomy History ADD, ADHD Hospital courseThis is a 34-year-old female admitted with new left-sided spontaneous pneumothorax, status thoravent placecment. Patient denies any recent trauma, car accident or fall. She reports playing tennis and had experienced some pain in opposite shoulder. Developed significant amount of audible gurgling gas 2-3 days prior to event accompanied by worsening shortness of breath. Denied nausea or vomiting and reports regular bowel movements. Denies abdominal pain.Chest x-ray this morning reporting minimal left apical pneumothorax noted, no evident effusion, free air present within the abdomen with lucency beneath the hemidiaphragms. CT of chest, abdomen and pelvis pending. Maintaining O2 sats in the high 90s on room air. Afebrile, normal WBC. Reports discomfort of thoravent site, Toradol added to med regimen. She is resting in NAD, denies any shortness of breath or abdominal pain. She continues to note some soreness around her thoravent site. CXR showing no residual pneumothorax and CT abdomen did not show any extravasation of oral c ontrast. Thoravent discontinued yesterday. Repeat chest x-ray stable, reporting minimal left apical pneumothorax, Pneumoperitoneum present. Diagnostic laparoscopy offered, patient declined, prefers medical management at this time.History of cholecystectomyTolerating well, denies chest pain, palpitations or shortness of breath. Denies lightheadedness, dizziness or focal deficits. Denies nausea vomiting or abdominal pain. Ambulating, tolerated exertion well. Afebrile. Cleared by CTS for discharge. Patient will be discharged home today in a stable condition with guarded prognosis pending clearance from surgery. Recommendation continues with aggressive pulmonary toileting, incentive spirometer reinforced. Recommend no strenuous activity 2 weeks. The impression and plan of care has been dictated as directed. : I performed a history and examination of this patient, discussed the same with the dictator. I agree with the dictator's note ,documented as a scribe. Any additional findings or plans will be noted. Patient Condition at Discharge: Stable Plan - Discharge Summary Discharge Rx Participant: Yes New Discharge Prescriptions: Continue Sertraline [Zoloft] 100 mg PO DAILY Spironolactone [Aldactone] 50 mg PO DAILY Methylphenidate HCl [Concerta] 54 mg PO DAILY@0700 predniSONE See Taper PO HS Methylphenidate HCl [Ritalin] 20 mg PO DAILY@1200 Cyclobenzaprine [Flexeril] 10 mg PO HS Discharge Medication List Sertraline [Zoloft] 100 mg PO DAILY 03/20/19 [History] Spironolactone [Aldactone] 50 mg PO DAILY 03/20/19 [History] Methylphenidate HCl [Concerta] 54 mg PO DAILY@0700 06/27/20 [History] Cyclobenzaprine [Flexeril] 10 mg PO HS 09/12/20 [History] Methylphenidate HCl [Ritalin] 20 mg PO DAILY@1200 09/12/20 [History] predniSONE See Taper PO HS 09/12/20 [History] Follow up Appointment(s)/Referral(s): William Lee MD [STAFF PHYSICIAN] - 09/22/20 9:00 am Patient Instructions/Handouts: Spontaneous Pneumothorax (DC), How to Stop Smoking (DC), How to Use an Incentive Spirometer (DC) Activity/Diet/Wound Care/Special Instructions: May remove chest dressing 09/16/[address] May place bandaid over site until completely healed. Continue to use incentive spirometer
--- NOTE | 2020-09-15 12:46 | P.PN ---
Subjective Progress Note Date: 09/15/20 Patient seen and examined at bedside. Thoravent was removed. Patient denies any shortness of breath. She denies any abdominal pain. Denies any fevers. Objective - Vital Signs Vital signs: Vital Signs Temp 98.4 F 09/15/20 11:50 Pulse 88 09/15/20 11:50 Resp 16 09/15/20 11:50 BP 124/83 09/15/20 11:50 Pulse Ox 98 09/15/20 11:50 Intake & Output 09/14/20 09/15/20 09/15/20 18:59 06:59 18:59 Intake Total 360 120 Balance 360 120 Weight 60.7 kg Intake: Oral 360 120 Other: Voiding Method Toilet Toilet Toilet # Voids 3 1 1 # Bowel Movements 1 - Constitutional General appearance: Present: cooperative - Gastrointestinal Gastrointestinal Comment(s): Soft, nontender, nondistended, no rebound, no guarding - Labs CBC & Chem 7: 09/15/20 05:53 09/13/20 07:19 Assessment and Plan Plan: Patient continues to have no abdominal pain. No evidence of leukocytosis. No tachycardic episodes. No fevers. Again, there are no signs of peritonitis or intra-abdominal infection. Patient is scheduled for discharge today. I did recommend returning to the emergency department immediately if any abdominal pain or signs of sepsis. This was discussed in depth with the patient.
== END 2020-09-15 12:40 | disposition home or self-care (01) | DRG 201 ==
LOC: EC 17:52 → 3SCARD 19:55
PROVIDERS: ADMIT Family Medicine; ATTEND Family Medicine
PROC: 0W9B30Z Drainage of Left Pleural Cavity with Drainage Device, Percutaneous Approach (ICD-10-PCS; principal; 2020-09-12)
DX: J93.83 Other pneumothorax (principal); F90.9 Attention-deficit hyperactivity disorder, unspecified type; Z90.49 Acquired absence of other specified parts of digestive tract; G43.909 Migraine, unspecified, not intractable, without status migrainosus; D72.829 Elevated white blood cell count, unspecified; Z79.899 Other long term (current) drug therapy; Z98.891 History of uterine scar from previous surgery
CPT/HCPCS: 31500; 36415; 71045; 71046; 71260; 74177; 80048; 80053; 83735; 84703; 85025; 93005; 96372; 96374; 96375; 96376; 99285

== ENCOUNTER → 2020-09-27 | Outpatient (CLI) | payer OTHER ==
--- NOTE | 2020-09-27 12:12 | XR ---
EXAMINATION TYPE: XR chest 2V DATE OF EXAM: 09/27/2020 COMPARISON: 09/15/2020 TECHNIQUE: PA and lateral views submitted. HISTORY: History of pneumothorax. FINDINGS: There is a pleural reflection along the lateral margin of the right upper lobe suspicious for a small residual approximately 5-10% pneumothorax. No mediastinal deviation. There also appears to be eviden ce of a left apical approximately 5-10% pneumothorax. Rib deformities on the left suggest previous fr acture. Surgical clips in the right upper quadrant is seen. No sizable pleural effusion or consolidat ion. Heart size normal and cannot exclude a small amount of free intraperitoneal air. IMPRESSION: 1. Bilateral 5-10% pneumothoraces suspected. Cannot exclude a small amount of free intraperitoneal ai r. Report called to referring clinician..
--- NOTE | 2020-09-27 12:15 | XR ---
EXAMINATION TYPE: XR abdomen 2V DATE OF EXAM: 09/27/2020 COMPARISON: 09/15/2020, 06/27/2020 HISTORY: Pneumothorax, pain TECHNIQUE: One view abdominal series FINDINGS: There are surgical clips in the right upper quadrant is a small amount of free intraperitoneal air. B owel gas nonspecific with retained fecal debris. Calcifications in the pelvis likely vascular. Osseou s structures intact. IMPRESSION: 1. Small amount of residual pneumoperitoneum. Report called to the referring clinician 12:14 PM and
== END | disposition home or self-care (01) ==
LOC: RADXRMAIN 11:26
PROVIDERS: ATTEND Physician Assistant
DX: K66.8 Other specified disorders of peritoneum (principal); J93.9 Pneumothorax, unspecified
CPT/HCPCS: 71046; 74019

== ENCOUNTER 2020-10-07 18:17 | Emergency (ER) | payer OTHER ==
[2020-10-07 18:58] VITALS: RESP 18
[2020-10-07] MEDS ORDERED: KETOROLAC 15 MG/ML 1 ML VIAL IVP STA (19:00)
[2020-10-07 19:20] LABS: Basophils % (A) 1 %; Eosinophils % (A) 0 %; HCT 40.1 % (34.0-46.0); Lymphocytes # (A) 1.6 k/uL (1.0-4.8); Lymphocytes % (A) 30 %; MCH 32.3 pg (25.0-35.0); MCHC 34.8 g/dL (31.0-37.0); MCV 92.9 fL (80.0-100.0); Mean Platelet Volume 8.3; Monocytes # (A) 0.2 k/uL (0-1.0); Monocytes % (A) 4 %; Neutrophils # (A) 3.4 k/uL (1.3-7.7); Neutrophils % (A) 64 %; Platelet Count 223 k/uL (150-450); RBC 4.32 m/uL (3.80-5.40); WBC 5.2 k/uL (3.8-10.6)
[2020-10-07 19:31] LABS: ALT 15 U/L (4-34); AST 24 U/L (14-36); African American GFR (CKD) >90 (>60 ml/min/1.73 sqM); Albumin 4.8 g/dL (3.5-5.0); Alkaline Phosphatase 41 U/L (38-126); Anion Gap 11 mmol/L; Blood Urea Nitrogen 12 mg/dL (7-17); Calcium 9.8 mg/dL (8.4-10.2); Carbon Dioxide 22 mmol/L (22-30); Chloride 105 mmol/L (98-107); Glucose 117 mg/dL (74-99); Non-African American GFR(CKD) >90 (>60 ml/min/1.73 sqM); Potassium 3.8 mmol/L (3.5-5.1); Sodium 138 mmol/L (137-145); Total Bilirubin 0.5 mg/dL (0.2-1.3); Total Protein 7.4 g/dL (6.3-8.2)
--- NOTE | 2020-10-07 19:43 | XR ---
EXAMINATION TYPE: XR chest 2V DATE OF EXAM: 10/07/2020 COMPARISON: 09/27/2020. HISTORY: Chest pain. TECHNIQUE: Frontal and lateral views of the chest are obtained. FINDINGS: There is no focal air space opacity, pleural effusion, or pneumothorax seen. The cardiac silhouette size is within normal limits. The osseous structures are intact. Cholecystectomy clips s een. IMPRESSION: No acute cardiopulmonary process.
[2020-10-07 19:49] LABS: INR 0.9 (<1.2); Partial Thromboplastin Time 21.3 sec (22.0-30.0); Prothrombin Time 10.2 sec (9.0-12.0)
--- NOTE | 2020-10-07 20:24 | ED ---
Chest Pain HPI - General Chief Complaint: Chest Pain Stated Complaint: Chest Pain/KALYAN Time Seen by Provider: 10/07/20 18:49 Source: patient Mode of arrival: ambulatory Limitations: no limitations - History of Present Illness Initial Comments: This 34-year-old female presents complaining of some pain into her left chest. She states that this came on earlier today. It is described as a slight irritation and occasionally sharp type of pain. She did feel short of breath at times as well. There is no radiation of the pain. She does relate a signific ant history recently. She was admitted to the hospital last month for a spontaneous pneumothorax. She did receive a chest tube at that time. She has been following up with her doctor for repeat chest x-rays. Her last chest x-ray was early last week which showed a very slight apical pneumothorax. She has an appointment to follow up with the cardiothoracic surgeon next month. She denies any fevers or chills. There is no leg pain or swelling. She otherwise denies any cardiac or pulmonary disease. No history of DVT or PE. No other complaints or modifying factors. - Related Data Home Medications Medication Instructions Recorded Confirmed Sertraline [Zoloft] 100 mg PO DAILY 03/20/19 09/12/20 Spironolactone [Aldactone] 50 mg PO DAILY 03/20/19 09/12/20 Methylphenidate HCl [Concerta] 54 mg PO DAILY@0700 06/27/20 09/12/20 Cyclobenzaprine [Flexeril] 10 mg PO HS 09/12/20 09/12/20 Methylphenidate HCl [Ritalin] 20 mg PO DAILY@1200 09/12/20 09/12/20 predniSONE See Taper PO HS 09/12/20 09/12/20 Allergies Allergy/AdvReac Type Severity Reaction Status Date / Time sulfamethoxazole Allergy Rash/Hives Verified 10/07/20 18:33 [From Bactrim] trimethoprim [From Bactrim] Allergy Rash/Hives Verified 10/07/20 18:33 Review of Systems ROS Statement: Those systems with pertinent positive or pertinent negative responses have been documented in the HPI. ROS Other: All systems not noted in ROS Statement are negative. Past Medical History Past Medical History: No Reported History Additional Past Medical History / Comment(s): Migraines, bilat pneumothorax, chest tube History of Any Multi-Drug Resistant Organisms: None Reported Past Surgical History: Appendectomy, Section, Cholecystectomy Past Anesthesia/Blood Transfusion Reactions: Unable to Obtain Additional Past Anesthesia/Blood Transfusion Reaction / Comment(s): No prior blood transfusions Past Psychological History: ADD/ADHD Smoking Status: Never smoker Past Alcohol Use History: Occasional Past Drug Use History: None Reported - Past Family History Mother Family Medical History: No Reported History Father Family Medical History: No Reported History General Exam - General Exam Comments Initial Comments: Constitutional: Alert and oriented, no apparent distress Vitals: Reviewed, please see nursing notes HEENT: No gross trauma identified, trachea midline, no respiratory distress Neck: No tenderness, good range of motion Heart: Regular rate and rhythm without murmur Lungs: Clear to auscultation bilaterally, no wheezing rhonchi or rales Abdomen: No tenderness or peritoneal signs noted, nondistended Back: No tenderness Neurologic: No gross sensory or motor deficits identified Integumentary: No rash or change in pigmentation Psychiatric: Alert and oriented, appropriate mood and affect Limitations: no limitations Course Vital Signs 10/07/20 10/07/20 10/07/20 18:29 18:58 19:10 Temperature 99.1 F Pulse Rate 127 H 113 H Respiratory 20 18 18 Rate Blood Pressure 153/88 143/85 O2 Sat by Pulse 100 100 Oximetry 10/07/20 20:00 Temperature Pulse Rate 98 Respiratory 18 Rate Blood Pressure 142/79 O2 Sat by Pulse 99 Oximetry Chest Pain [facility] [place] - MDM The patient was seen and examined. All diagnostics were reviewed. She is placed on a metal window screen assembler and no ectopy is identified. The EKG shows a sinus tachycardia at a rate of 107. There is no acute ST-T wave changes identified. The [place] intervals 1:30, QRS duration 76, and the QTC intervals 427. A chest x- ray was done and reviewed by myself and I do not see any abnormalities or evidence of pneumothorax. Is also read out as negative by radiology. The laboratory analysis does not show any abnormalities with a negative d-dimer and negative troponin. The exact cause of her pain is not definitively determined. It may potentially be pleuritis or masses skeletal in nature. It is felt as though she is stable for discharge. Return parameters are discussed in detail. Close follow-up recommended. Disposition Clinical Impression: Chest pain, History of pneumothorax Disposition: HOME SELF-CARE Condition: Good Instructions (If sedation given, give patient instructions): Chest Pain (ED) Is patient prescribed a controlled substance at d/c from ED?: No Referrals: Madelyn Cesar DO [Primary Care Provider] - 1-2 days Time of Disposition: 20:23
[2020-10-07 20:42] VITALS: BP 121/78; PULSE 90; TEMP 98.3
== END 2020-10-07 20:35 | disposition home or self-care (01) ==
LOC: EC 18:17
DX: R07.89 Other chest pain (principal); R00.0 Tachycardia, unspecified; F90.9 Attention-deficit hyperactivity disorder, unspecified type; Z87.09 Personal history of other diseases of the respiratory system; Z88.1 Allergy status to other antibiotic agents; Z88.2 Allergy status to sulfonamides; Z90.49 Acquired absence of other specified parts of digestive tract
CPT/HCPCS: 99285; 96374; 36415; 93005; 85379; 80053; 84484; 85025; 85610; 85730; 71046; J1885

== ENCOUNTER 2020-12-17 13:09 | Inpatient (IN) | payer OTHER ==
[2020-12-17] MEDS ORDERED: LIDOCAINE 1% INJ 10MG/ML (20 ML MDV) SQ ONE (13:25)
[2020-12-17] MEDS ORDERED: HYDROmorphone 1 MG/ML 1 ML SYRINGE IVP STA (13:47)
[2020-12-17] MEDS ORDERED: LORazepam 2 MG/ML INJ IV STA (13:47)
[2020-12-17 14:11] LABS: Basophils # (A) 0.1 k/uL (0-0.2); Basophils % (A) 1 %; Eosinophils % (A) 0 %; HCT 44.4 % (34.0-46.0); HGB 15.5 gm/dL (11.4-16.0); Lymphocytes % (A) 25 %; MCH 32.8 pg (25.0-35.0); MCV 93.8 fL (80.0-100.0); Mean Platelet Volume 8.2; Monocytes # (A) 0.3 k/uL (0-1.0); Monocytes % (A) 4 %; Neutrophils # (A) 5.6 k/uL (1.3-7.7); Neutrophils % (A) 70 %; Platelet Count 249 k/uL (150-450); RBC 4.73 m/uL (3.80-5.40); RDW 11.7 % (11.5-15.5)
--- NOTE | 2020-12-17 14:19 | ED ---
Recheck HPI - General Chief Complaint: Recheck/Abnormal Lab/Rx Stated Complaint: collapsed lung Time Seen by Provider: 12/17/20 13:22 Source: patient, RN notes reviewed Mode of arrival: ambulatory Limitations: no limitations - History of Present Illness Initial Comments: 35-year-old female with a prior history of spontaneous pneumothorax to palpation x-rays done today showing a complete left-sided pneumothorax with evidence of pneumoperitoneum. Patient has had this in the past also she states she denies any overt pain some shortness of breath no fevers chills nausea vomiting sweats or other symptoms. She was called back after the outpatient x-ray was done. MD Complaint: other - Related Data Home Medications Medication Instructions Recorded Confirmed Spironolactone [Aldactone] 50 mg PO DAILY 03/20/19 12/17/20 Methylphenidate HCl [Concerta] 54 mg PO DAILY 06/27/20 12/17/20 Methylphenidate HCl [Ritalin] 30 mg PO DAILY@1200 09/12/20 12/17/20 Allergies Allergy/AdvReac Type Severity Reaction Status Date / Time sulfamethoxazole Allergy Rash/Hives Verified 12/17/20 14:13 [From Bactrim] trimethoprim [From Bactrim] Allergy Rash/Hives Verified 12/17/20 14:13 Review of Systems ROS Statement: Those systems with pertinent positive or pertinent negative responses have been documented in the HPI. ROS Other: All systems not noted in ROS Statement are negative. Past Medical History Past Medical History: No Reported History Additional Past Medical History / Comment(s): Migraines, bilat pneumothorax, pati st tube History of Any Multi-Drug Resistant Organisms: None Reported Past Surgical History: Appendectomy, Section, Cholecystectomy Past Anesthesia/Blood Transfusion Reactions: Unable to Obtain Additional Past Anesthesia/Blood Transfusion Reaction / Comment(s): No prior blood transfusions Past Psychological History: ADD/ADHD Smoking Status: Never smoker Past Alcohol Use History: Occasional Past Drug Use History: None Reported - Past Family History Mother Family Medical History: No Reported History Father Family Medical History: No Reported History General Exam - General Exam Comments Initial Comments: This is a well-developed well-nourished awake alert oriented 3 female Limitations: no limitations General appearance: alert, anxious Head exam: Present: atraumatic, normocephalic, normal inspection Eye exam: Present: normal appearance, PERRL, EOMI. Absent: scleral icterus, conjunctival injection, periorbital swelling ENT exam: Present: normal exam, mucous membranes moist Neck exam: Present: normal inspection, full ROM, other (No stridor JVD or bruits no shift in the trachea which is midline clinically). Absent: tenderness, meningismus, lymphadenopathy Respiratory exam: Present: decreased breath sounds (Markedly decreased breath sounds in the left with dullness to percussion). Absent: respiratory distress, wheezes, rales, rhonchi, stridor Cardiovascular Exam: Present: regular rate, normal rhythm, normal heart sounds. Absent: systolic murmur, diastolic murmur, rubs, gallop, clicks GI/Abdominal exam: Present: soft, normal bowel sounds. Absent: distended, tenderness, guarding, rebound, rigid Extremities exam: Present: normal inspection, full ROM, normal capillary refill. Absent: tenderness, pedal edema, joint swelling, calf tenderness Back exam: Present: normal inspection Neurological exam: Present: alert, oriented X3, CN II-XII intact Psychiatric exam: Present: normal affect, normal mood Skin exam: Present: warm, dry, intact, normal color. Absent: rash Course Vital Signs 12/17/20 12/17/20 13:17 13:55 Temperature 98.4 F Pulse Rate 84 Respiratory 18 18 Rate Blood Pressure 151/89 O2 Sat by Pulse 100 Oximetry - Reevaluation(s) Reevaluation #1: 12/17/20 16:51 Initial reevaluation the patient she did not improve after the initial insertion of the pleura vent she was hooked up to suction with marked improvement. This is confirmed on x-ray. Patient will have a CAT scan chest abdomen pelvis performed. Procedures - Chest Tube Insertion Consent Obtained: emergent situation Side of Procedure: left Indication: Pneumothorax Placed on monitor/pulse oximetry: Yes Site Prep: Povidone-Iodine Local Anesthesia: Lidocaine 1% Amount (mLs): 10 Insertion Site: Other (Clavicular line anterior second intercostal space) Scalpel: #10 Open into Pleural Space Using: Trocar Tube Size (Irish): Other (11-Irish) Returns: Air Sutured in Place: No (Adhesive) Attached to Suction: Yes (Initially the diaphragm appear to be working well however the x-ray showed ) Repeat X-ray Results: Other (As stated above) Patient Tolerated Procedure: well Medical Decision Making - Medical Decision Making Patient did have several x-rays showing improvement of her left pneumothorax. She did tolerate this well he did have one episode of vasovagal reaction she did improve after Zofran. I did discuss the case with Dr. pichardo as well as Dr. Vargas and Dr. Edwards who did see the patient in emergency department patient be admitted also remarkable be consulted. - Lab Data Result diagrams: 12/17/20 14:02 12/17/20 14:02 Lab Results 12/17/20 12/17/20 12/17/20 Range/Units 14:02 14:02 14:02 WBC 8.0 (3.8-10.6) k/uL RBC 4.73 (3.80-5.40) m/uL Hgb 15.5 (11.4-16.0) gm/dL Hct 44.4 (34.0-46.0) % MCV 93.8 (80.0-100.0) fL MCH 32.8 (25.0-35.0) pg MCHC 35.0 (31.0-37.0) g/dL RDW 11.7 (11.5-15.5) % Plt Count 249 (150-450) k/uL MPV 8.2 Neutrophils % 70 % Lymphocytes % 25 % Monocytes % 4 % Eosinophils % 0 % Basophils % 1 % Neutrophils # 5.6 (1.3-7.7) k/uL Lymphocytes # 2.0 (1.0-4.8) k/uL Monocytes # 0.3 (0-1.0) k/uL Eosinophils # 0.0 (0-0.7) k/uL Basophils # 0.1 (0-0.2) k/uL PT 10.4 (9.0-12.0) sec INR 1.0 (<1.2) APTT 22.5 (22.0-30.0) sec Sodium 137 (137-145) mmol/L Potassium 3.9 (3.5-5.1) mmol/L Chloride 104 (98-107) mmol/L Carbon Dioxide 21 L (22-30) mmol/L Anion Gap 12 mmol/L BUN 8 (7-17) mg/dL Creatinine 0.63 (0.52-1.04) mg/dL Est GFR (CKD-EPI)AfAm >90 (>60 ml/min/1.73 sqM) Est GFR (CKD-EPI)NonAf >90 (>60 ml/min/1.73 sqM) Glucose 98 (74-99) mg/dL POC Glucose (mg/dL) (75-99) mg/dL POC Glu Coil Maker ID Plasma Lactic Acid Nate (0.7-2.0) mmol/L Calcium 10.3 H (8.4-10.2) mg/dL Magnesium 1.8 (1.6-2.3) mg/dL Total Bilirubin 0.9 (0.2-1.3) mg/dL AST 24 (14-36) U/L ALT 13 (4-34) U/L Alkaline Phosphatase 49 (38-126) U/L Creatine Kinase 71 (30-135) U/L Total Protein 8.3 H (6.3-8.2) g/dL Albumin 5.1 H (3.5-5.0) g/dL Lipase (23-300) U/L 12/17/20 12/17/20 12/17/20 Range/Units 14:02 15:12 15:59 WBC (3.8-10.6) k/uL RBC (3.80-5.40) m/uL Hgb (11.4-16.0) gm/dL Hct (34.0-46.0) % MCV (80.0-100.0) fL MCH (25.0-35.0) pg MCHC (31.0-37.0) g/dL RDW (11.5-15.5) % Plt Count (150-450) k/uL MPV Neutrophils % % Lymphocytes % % Monocytes % % Eosinophils % % Basophils % % Neutrophils # (1.3-7.7) k/uL Lymphocytes # (1.0-4.8) k/uL Monocytes # (0-1.0) k/uL Eosinophils # (0-0.7) k/uL Basophils # (0-0.2) k/uL PT (9.0-12.0) sec INR (<1.2) APTT (22.0-30.0) sec Sodium (137-145) mmol/L Potassium (3.5-5.1) mmol/L Chloride (98-107) mmol/L Carbon Dioxide (22-30) mmol/L Anion Gap mmol/L BUN (7-17) mg/dL Creatinine (0.52-1.04) mg/dL Est GFR (CKD-EPI)AfAm (>60 ml/min/1.73 sqM) Est GFR (CKD-EPI)NonAf (>60 ml/min/1.73 sqM) Glucose (74-99) mg/dL POC Glucose (mg/dL) 103 H (75-99) mg/dL POC Glu Coil Maker ID Poppy [place] Plasma Lactic Acid Nate 0.8 (0.7-2.0) mmol/L Calcium (8.4-10.2) mg/dL Magnesium (1.6-2.3) mg/dL Total Bilirubin (0.2-1.3) mg/dL AST (14-36) U/L ALT (4-34) U/L Alkaline Phosphatase (38-126) U/L Creatine Kinase (30-135) U/L Total Protein (6.3-8.2) g/dL Albumin (3.5-5.0) g/dL Lipase 48 (23-300) U/L - Radiology Data Radiology results: report reviewed (Initial outpatient imaging showed her percent pneumothorax in the left with some pneumoperitoneum.), image reviewed Critical Care Time Critical Care Time: Yes Total Critical Care Time: 45 Critical Care Time: Medical care time including initial presentation with history physical labs x- rays multiple reevaluation of the patient this does not include the procedure time. Discussed with multiple physicians review of old charting was available admission orders and documentation of the above Disposition Clinical Impression: Spontaneous tension pneumothorax, Pneumoperitoneum of unknown etiology Disposition: ADMITTED IP TO THIS [facility] Condition: Fair Referrals: Madelyn Cesar DO [Primary Care Provider] - 1-2 days
[2020-12-17 14:24] LABS: ALT 13 U/L (4-34); AST 24 U/L (14-36); African American GFR (CKD) >90 (>60 ml/min/1.73 sqM); Albumin 5.1 g/dL (3.5-5.0); Alkaline Phosphatase 49 U/L (38-126); Anion Gap 12 mmol/L; Blood Urea Nitrogen 8 mg/dL (7-17); Calcium 10.3 mg/dL (8.4-10.2); Carbon Dioxide 21 mmol/L (22-30); Chloride 104 mmol/L (98-107); Creatine Kinase 71 U/L (30-135); Glucose 98 mg/dL (74-99); Magnesium 1.8 mg/dL (1.6-2.3); Non-African American GFR(CKD) >90 (>60 ml/min/1.73 sqM); Potassium 3.9 mmol/L (3.5-5.1); Sodium 137 mmol/L (137-145); Total Bilirubin 0.9 mg/dL (0.2-1.3); Total Protein 8.3 g/dL (6.3-8.2)
--- NOTE | 2020-12-17 14:28 | XR ---
EXAMINATION TYPE: XR chest 1V confirm line [facility] DATE OF EXAM: 12/17/2020 COMPARISON: 12/17/2020 HISTORY: Chest tube insertion TECHNIQUE: Single frontal view of the chest is obtained. FINDINGS: Left-sided chest tube noted and there appears to be persistent large left-sided pneumothor ax. There is no pneumothorax. The heart appears be midline on the current exam. Right lung clear. The re is a small amount of air within the abdominal cavity compatible with pneumoperitoneum. IMPRESSION: 1. Chest tube in position with persistent large left-sided pneumothorax with near complete collapse. 2. Pneumoperitoneum
[2020-12-17 14:29] LABS: Partial Thromboplastin Time 22.5 sec (22.0-30.0); Prothrombin Time 10.4 sec (9.0-12.0)
[2020-12-17] MEDS ORDERED: HYDROmorphone 0.5 MG/0.5 ML SYRINGE IVP STA (14:51)
[2020-12-17] MEDS ORDERED: IOPAMIDOL CONTRAST (ORAL USE) VIAL PO PRN (15:32)
[2020-12-17] MEDS ORDERED: ONDANSETRON 4 MG/2 ML VIAL IVP STA (15:50)
--- NOTE | 2020-12-17 15:58 | XR ---
EXAMINATION TYPE: XR chest 1V portable DATE OF EXAM: 12/17/2020 COMPARISON: 12/17/ HISTORY: Progress pneumothorax TECHNIQUE: Single frontal view of the chest is obtained. FINDINGS: Left sided Thora vent is in place. Previously noted large pneumothorax has essentially resolved with minimal residual noted. Small amount of pneumoperitoneum persists. Left basilar atelectasis or infilt rate. The cardiac silhouette size is within normal limits. The osseous structures are intact. IMPRESSION: 1. Left sided Thora vent is in place. Previously noted large pneumothorax has essentially resolved w ith minimal residual noted. Small amount of pneumoperitoneum persists.
[2020-12-17 16:00] LABS: Glucose,Whole Blood 103 mg/dL (75-99)
[2020-12-17] MEDS ORDERED: NALOXONE 0.4 MG/ML 1 ML VIAL IV PRN (17:01)
[2020-12-17] MEDS ORDERED: PIPERACILLIN-TAZOBACTAM 3.375 GM in SODIUM CHLORIDE 0.9% 100 ML IVPB STA (17:05)
--- NOTE | 2020-12-17 19:22 | CT ---
EXAMINATION TYPE: CT ChestAbdPelvis w con DATE OF EXAM: 12/17/2020 COMPARISON: 09/13/2020 HISTORY: Free abdominal air and pneumothorax. CT DLP: 732.4 mGycm CONTRAST: CT scan of the chest, abdomen and pelvis is performed with Oral Contrast and with IV Contrast, patien t injected with 100 mL of Isovue 300. CT Chest: LUNGS: Left-sided thora vent with trace pneumothorax identified. Left basilar parenchymal scarring or atelectasis. The lungs are clear and free of infiltrate or atelectasis. No pulmonary nodule or mass is detected. No pleural effusion or CT evidence of interstitial lung disease. MEDIASTINUM: Thoracic aorta is of normal caliber. The heart is not enlarged. No evidence for media stinal mass or adenopathy. HILAR STRUCTURES: No evidence for mass. No hilar adenopathy is appreciated. OTHER: No significant abnormality. CONTRAST CT ABDOMEN AND PELVIS FINDINGS: LIVER/GB: No calcified gallstones. No space occupying hepatic lesion. Biliary tree is of normal ca liber. PANCREAS: No inflammation. No distinct mass. SPLEEN: No splenic enlargement. No lesion seen. ADRENALS: No nodule. No thickening. KIDNEYS/BLADDER: No hydronephrosis. No nephrolithiasis. No distinct renal mass. BOWEL: Surgical sutures in the region of the cecal tip. Normal bowel caliber. No inflammation. GENITAL ORGANS: Small amount of free fluid within the pelvis. LYMPH NODES: No greater than 1cm abdominal or pelvic lymph nodes are appreciated. AORTA: No significant abnormality. OSSEOUS STRUCTURES: No significant abnormality is seen. OTHER: Again noted is pneumoperitoneum of uncertain etiology similar to but slightly less than prior examination. Most of the free air is seen within the subdiaphragmatic regions and about the stomach. IMPRESSION: 1. Similar findings to prior examination with trace pneumothorax seen left lung as well as a pneumo p eritoneum of uncertain site or etiology.
[2020-12-17] MEDS: HYDROmorphone 1 MG/ML 1 ML SYRINGE IVP PRN (19:29)
[2020-12-17] MEDS ORDERED: ONDANSETRON 4 MG/2 ML VIAL IVP PRN (19:56)
[2020-12-17] MEDS: SODIUM CHLORIDE 0.9% 1,000 ML IV SCH (20:07)
--- NOTE | 2020-12-17 20:38 | P.HPIM ---
History of Present Illness This is a pleasant 35 years old female with past medical history of migraine, previous bilateral pneumothorax status post chest tube. She is a patient of Beata Joshi. She presents with dyspnea. Patient states that she was fee ling in her belly for 2 weeks, last week she started having dyspnea but went to see her PCP and call her back later on with chest x-ray result showing pneumothorax on the left side was advised to come to emergency room. On the presentation vital signs stable and she is saturated 100% on room air. Labs including CBC, BMP, liver enzymes and lipase are unremarkable. Melgar chest x-ray showing just a tube in position with persistent large left sided pneumothorax with near complete collapse. Pneumo peritoneal virus not detected. CT of the abdomen showing pneumothorax and pneumoperitoneum off on significant etiology In the emergency room she received 1 dose of Zosyn, Dilaudid, Ativan. And norm al saline I offered to do test for the patient but she declined stating that she has tubal ligation. Risks are explained Review of Systems CONSTITUTIONAL: No fever, no malaise, no fatigue. HEENT: No recent visual problems or hearing problems. Denied any sore throat. CARDIOVASCULAR: No orthopnea, PND, no palpitations, no syncope. PULMONARY: No sneezing, no hemoptysis. GASTROINTESTINAL: No diarrhea, no nausea, no vomiting, no abdominal pain. Normoactive bowel sounds. NEUROLOGICAL: No headaches, no weakness, no numbness. HEMATOLOGICAL: Denies any bleeding or petechiae. GENITOURINARY: Denies any burning micturition, frequency, or urgency. MUSCULOSKELETAL/RHEUMATOLOGICAL: Denies any joint pain, swelling, or any muscle pain. ENDOCRINE: Denies any polyuria or polydipsia. Past Medical History Past Medical History: No Reported History Additional Past Medical History / Comment(s): Migraines, bilat pneumothorax, chest tube History of Any Multi-Drug Resistant Organisms: None Reported Past Surgical History: Appendectomy, Section, Cholecystectomy Past Anesthesia/Blood Transfusion Reactions: Unable to Obtain Additional Past Anesthesia/Blood Transfusion Reaction / Comment(s): No prior blood transfusions Past Psychological History: ADD/ADHD Smoking Status: Never smoker Past Alcohol Use History: Occasional Past Drug Use History: None Reported - Past Family History Mother Family Medical History: No Reported History Father Family Medical History: No Reported History Medications and Allergies Home Medications Medication Instructions Recorded Confirmed Type Spironolactone [Aldactone] 50 mg PO DAILY 03/20/19 12/17/20 History Methylphenidate HCl [Concerta] 54 mg PO DAILY 06/27/20 12/17/20 History Methylphenidate HCl [Ritalin] 30 mg PO DAILY@1200 09/12/20 12/17/20 History Allergies Allergy/AdvReac Type Severity Reaction Status Date / Time sulfamethoxazole Allergy Rash/Hives Verified 12/17/20 14:13 [From Bactrim] trimethoprim [From Bactrim] Allergy Rash/Hives Verified 12/17/20 14:13 Physical Exam Vitals: Vital Signs Temp Pulse Pulse Resp BP BP Pulse Ox 12/17/20 20:00 97.9 F 77 16 120/72 98 12/17/20 18:24 96 18 139/92 100 12/17/20 17:19 80 17 125/90 12/17/20 16:19 130/90 12/17/20 15:19 104 H 16 120/90 100 12/17/20 14:19 18 123/83 100 12/17/20 13:55 18 12/17/20 13:17 98.4 F 84 18 151/89 100 Intake and Output 12/17/20 12/17/20 12/17/20 06:59 14:59 22:59 Other: Weight 59.874 kg GENERAL: The patient is alert and oriented x3, not in any acute distress. Well developed, well nourished. HEENT: Pupils are round and equally reacting to light. EOMI. No scleral icterus. No conjunctival pallor. Normocephalic, atraumatic. No pharyngeal erythema. No thyromegaly. CARDIOVASCULAR: S1 and S2 present. No murmurs, rubs, or gallops. -PULMONARY: Chest is clear to auscultation, no wheezing or crackles. Decreased breath sounds on the left side ABDOMEN: Soft, nontender, nondistended, normoactive bowel sounds. No palpable organomegaly. MUSCULOSKELETAL: No joint swelling or deformity. EXTREMITIES: No cyanosis, clubbing, or pedal edema. NEUROLOGICAL: Gross neurological examination did not reveal any focal deficits. SKIN: No rashes. No petechiae Results CBC & Chem 7: 12/17/20 14:02 12/17/20 14:02 Labs: Abnormal Lab Results - Last 24 Hours (Table) 12/17/20 12/17/20 Range/Units 14:02 15:59 Carbon Dioxide 21 L (22-30) mmol/L POC Glucose (mg/dL) 103 H (75-99) mg/dL Calcium 10.3 H (8.4-10.2) mg/dL Total Protein 8.3 H (6.3-8.2) g/dL Albumin 5.1 H (3.5-5.0) g/dL Assessment and Plan Assessment: Left-sided pneumothorax with near complete collapse of the left leg, status post chest tube Pneumo peritoneal History of migraine Previous history of pneumothorax Plan: This is a pleasant 35 years old female who presents with left pneumothorax and pneumoperitoneum Continue with chest tube Follow-up recommendation by several consultants, pulmonary, cardiothoracic surgeon and general surgeon. Labs and medication were reviewed.. Continue same treatment. Continue with symptomatic treatment. Resume home medication. Monitor lytes and vitals. DVT and GI prophylaxis. Further recommendations as per clinical course of the patient DVT prophylaxis: Subcutaneous heparin GI Prophylaxis: Pepcid Prognosis is guarded
[2020-12-17] MEDS: FAMOTIDINE 20 MG/2 ML VIAL IV SCH (21:48)
[2020-12-17] MEDS: HEPARIN SODIUM,PORCINE/PF 5,000 UNIT/0.5 ML SYRINGE SQ SCH (21:48)
--- NOTE | 2020-12-17 22:16 | P.GSCN ---
History of Present Illness Consult date: 12/17/20 Reason for Consult: Pneumoperitoneum History of present illness: The patient was sent to the ED after an outpatient chest xRay showed pneumothor ax and pneumoperitoneum. She has a history of this in the past which was treated with chest tube decompression. The pas 2 weeks she has noticed a funny sensation and sound in her abdomen, similar to her last episode. This week she has developed some chest complaints, like when you cough alot from bronchitis. Denies abdominal pain, nausea, vomiting, weight loss or loss of appetite. No fever or chills. Bowels are moving normally. Review of Systems All systems: negative Past Medical History Past Medical History: No Reported History Additional Past Medical History / Comment(s): Migraines, bilat pneumothorax, chest tube History of Any Multi-Drug Resistant Organisms: None Reported Past Surgical History: Appendectomy, Section, Cholecystectomy Additional Past Surgical History / Comment(s): tubes removed Past Anesthesia/Blood Transfusion Reactions: Unable to Obtain Additional Past Anesthesia/Blood Transfusion Reaction / Comm: No prior blood transfusions Past Psychological History: ADD/ADHD Smoking Status: Never smoker Past Alcohol Use History: Occasional Additional Past Alcohol Use History / Comment(s): couple times a year Past Drug Use History: None Reported - Past Family History Mother Family Medical History: No Reported History Father Family Medical History: No Reported History Medications and Allergies Home Medications Medication Instructions Recorded Confirmed Type Spironolactone [Aldactone] 50 mg PO DAILY 03/20/19 12/17/20 History Methylphenidate HCl [Concerta] 54 mg PO DAILY 06/27/20 12/17/20 History Methylphenidate HCl [Ritalin] 30 mg PO DAILY@1200 09/12/20 12/17/20 History Allergies Allergy/AdvReac Type Severity Reaction Status Date / Time sulfamethoxazole Allergy Rash/Hives Verified 12/17/20 14:13 [From Bactrim] trimethoprim [From Bactrim] Allergy Rash/Hives Verified 12/17/20 14:13 Surgical - Exam Osteopathic Statement: *. No significant issues noted on an osteopathic structural exam other than those noted in the History and Physical/Consult. Vital Signs Temp Pulse Resp BP Pulse Ox 98.4 F 84 18 151/89 100 12/17/20 13:17 12/17/20 13:17 12/17/20 13:17 12/17/20 13:17 12/17/20 13:17 - General well developed, well nourished, no distress - Eyes normal ocular movement - Neck trachea midline - Respiratory normal respiratory effort, clear to auscultation (slightly diminished on the left side. ) Results - Labs 12/17/20 14:02 12/17/20 14:02 Abnormal Lab Results - Last 24 Hours (Table) 12/17/20 12/17/20 Range/Units 14:02 15:59 Carbon Dioxide 21 L (22-30) mmol/L POC Glucose (mg/dL) 103 H (75-99) mg/dL Calcium 10.3 H (8.4-10.2) mg/dL Total Protein 8.3 H (6.3-8.2) g/dL Albumin 5.1 H (3.5-5.0) g/dL Diabetes panel 12/17/20 Range/Units 14:02 Sodium 137 (137-145) mmol/L Potassium 3.9 (3.5-5.1) mmol/L Chloride 104 (98-107) mmol/L Carbon Dioxide 21 L (22-30) mmol/L BUN 8 (7-17) mg/dL Creatinine 0.63 (0.52-1.04) mg/dL Glucose 98 (74-99) mg/dL Calcium 10.3 H (8.4-10.2) mg/dL AST 24 (14-36) U/L ALT 13 (4-34) U/L Alkaline Phosphatase 49 (38-126) U/L Total Protein 8.3 H (6.3-8.2) g/dL Albumin 5.1 H (3.5-5.0) g/dL Calcium panel 12/17/20 Range/Units 14:02 Calcium 10.3 H (8.4-10.2) mg/dL Albumin 5.1 H (3.5-5.0) g/dL Pituitary panel 12/17/20 Range/Units 14:02 Sodium 137 (137-145) mmol/L Potassium 3.9 (3.5-5.1) mmol/L Chloride 104 (98-107) mmol/L Carbon Dioxide 21 L (22-30) mmol/L BUN 8 (7-17) mg/dL Creatinine 0.63 (0.52-1.04) mg/dL Glucose 98 (74-99) mg/dL Calcium 10.3 H (8.4-10.2) mg/dL Adrenal panel 12/17/20 Range/Units 14:02 Sodium 137 (137-145) mmol/L Potassium 3.9 (3.5-5.1) mmol/L Chloride 104 (98-107) mmol/L Carbon Dioxide 21 L (22-30) mmol/L BUN 8 (7-17) mg/dL Creatinine 0.63 (0.52-1.04) mg/dL Glucose 98 (74-99) mg/dL Calcium 10.3 H (8.4-10.2) mg/dL Total Bilirubin 0.9 (0.2-1.3) mg/dL AST 24 (14-36) U/L ALT 13 (4-34) U/L Alkaline Phosphatase 49 (38-126) U/L Total Protein 8.3 H (6.3-8.2) g/dL Albumin 5.1 H (3.5-5.0) g/dL - Imaging CT scan - abdomen: report reviewed Assessment and Plan (1) Pneumoperitoneum Current Visit: No Status: Acute Code(s): K66.8 - OTHER SPECIFIED DISORDERS OF PERITONEUM SNOMED Code(s): 25841712 (2) Spontaneous pneumothorax Current Visit: No Status: Acute Code(s): J93.83 - OTHER PNEUMOTHORAX SNOMED Code(s): 20790758 Plan: The pneumoperitoneum appears to be asymptomatic and related to the pneumothorax. She has a nonsurgical abdomen. Recommend evaluation by thoracic surgery. If the patients condition changes and you would like her reevaluted, I would be happy to see her again.
[2020-12-18] MEDS: PIPERACILLIN-TAZOBACTAM 3.375 GM in SODIUM CHLORIDE 0.9% 100 ML IVPB SCH ×2 (06:34→16:32)
--- NOTE | 2020-12-18 08:25 | XR ---
EXAMINATION TYPE: XR chest 1V DATE OF EXAM: 12/18/2020 COMPARISON: 2220 HISTORY: Pneumothorax and free intra-abdominal air TECHNIQUE: Single frontal view of the chest is obtained. FINDINGS: Left-sided thoracic vent in place. No sizable pneumothorax demonstrated. Small amount of free air und erneath the right hemidiaphragm. The cardiac silhouette size is within normal limits. The osseous structures are intact. IMPRESSION: 1. Stable chest
[2020-12-18] MEDS: HYDROmorphone 1 MG/ML 1 ML SYRINGE IVP PRN (08:27)
--- NOTE | 2020-12-18 09:07 | P.GSCN ---
History of Present Illness Consult date: 12/18/20 Reason for Consult: Recurrent left spontaneous pneumothorax Requesting physician: Raphael Lan History of present illness: This is a 35-year-old female patient who follows on an outpatient basis with Dr. Madelyn Cesar for her primary care service. She is a past medical history significant for spontaneous left pneumothorax in August 2020 with left Thoravent placed, resolution of her pneumothorax and subsequently discharged home. She also has a past medical history significant for migraines, ADHD and she is a [facility]il hospital [employer] nonsmoker. The patient reports last Sunday she developed some gas in her abdomen which resolved on its own and was similar to her previous experience with her left pneumothorax. On she developed some left-sided chest pain and shortness of breath with activity and presented to her primary care physician's office. She was subsequently sent over to the emergency department here at [facility] for an x-ray yesterday 12/17/2020 and was called back to the emergency department due to the findings on the x-ray. The x-ray demonstrated a complete collapse of the left lung with a large left-sided pneumothorax with probable tension component. It also demonstrated large amount of free intra-abdominal air. Due to the findings on the chest x-ray a left- sided Thoravent was placed by the emergency room physician. The patient denies any recent trauma, fever, chills, nausea, vomiting, diarrhea, constipation, hematemesis or hemoptysis. For further evaluation she underwent a computed tomography scan of her chest, abdomen and pelvis with contrast which demonstrated a trace left-sided pneumothorax as well as pneumoperitoneum of uncertain site or etiology. Subsequently, due to the patient's presenting symptoms, findings on her chest x-ray, computed tomography scan and history of left-sided pneumothorax a consult was placed to Dr. Matt Valle from cardiothoracic surgery for further evaluation and treatment recommendations. Review of Systems A 14 point review of systems was completed was negative except as mentioned in the HPI. Past Medical History Past Medical History: No Reported History Additional Past Medical History / Comment(s): Migraines, history of spontaneous left pneumothorax in August 2020 with Thoravent placement History of Any Multi-Drug Resistant Organisms: None Reported Past Surgical History: Appendectomy, Section, Cholecystectomy Additional Past Surgical History / Comment(s): History of left-sided Thoravent for pneumothorax Past Anesthesia/Blood Transfusion Reactions: Unable to Obtain Additional Past Anesthesia/Blood Transfusion Reaction / Comm: No prior blood transfusions Past Psychological History: ADD/ADHD Smoking Status: Never smoker Past Alcohol Use History: Occasional Additional Past Alcohol Use History / Comment(s): couple times a year Past Drug Use History: None Reported - Past Family History Mother Family Medical History: No Reported History Father Family Medical History: No Reported History Medications and Allergies Home Medications Medication Instructions Recorded Confirmed Type Spironolactone [Aldactone] 50 mg PO DAILY 03/20/19 12/17/20 History Methylphenidate HCl [Concerta] 54 mg PO DAILY 06/27/20 12/17/20 History Methylphenidate HCl [Ritalin] 30 mg PO DAILY@1200 09/12/20 12/17/20 History Allergies Allergy/AdvReac Type Severity Reaction Status Date / Time sulfamethoxazole Allergy Rash/Hives Verified 12/17/20 14:13 [From Bactrim] trimethoprim [From Bactrim] Allergy Rash/Hives Verified 12/17/20 14:13 Surgical - Exam Vital Signs Temp Pulse Resp BP Pulse Ox 98.4 F 84 18 151/89 100 12/17/20 13:17 12/17/20 13:17 12/17/20 13:17 12/17/20 13:17 12/17/20 13:17 - General Currently laying in bed on the third floor cardiac stepdown unit, appears comfortable, cooperative and is in no apparent acute distress. well developed, well nourished, no distress, no pain - Eyes PERRL, normal ocular movement, no pale, no icteric - ENT normal pinna, normal nares, normal mucosa, no hearing loss, no congestion - Neck Neck is supple, no JVD. no masses, no bruits, trachea midline, no venous distension - Respiratory Lung sounds essentially clear throughout. Respirations are symmetrical and nonlabored. Oxygen saturation are 98% on room air. Left chest Thoravent in place with intermittent air leak present. - Cardiovascular Regular rhythm and rate. S1 and S2 present, negative for S3, gallop or murmur. Remote telemetry showing normal sinus rhythm heart rate 69 BPM. No edema present. - Abdomen Abdomen is soft, nontender and nondistended. Active bowel sounds present all 4, quadrants. No guarding or rigidity. No organomegaly appreciated. - Integumentary Skin is warm and dry. No clubbing or cyanosis is present. no rash, no growths, no abnormal pigmentation - Neurologic Cranial nerves II through XII intact. No focal deficits. normal coordination, normal sensation - Musculoskeletal normal gait, normal posture - Psychiatric oriented to time, oriented to person, oriented to place, speech is normal, memory intact Results - Labs 12/17/20 14:02 12/17/20 14:02 Abnormal Lab Results - Last 24 Hours (Table) 12/17/20 12/17/20 Range/Units 14:02 15:59 Carbon Dioxide 21 L (22-30) mmol/L POC Glucose (mg/dL) 103 H (75-99) mg/dL Calcium 10.3 H (8.4-10.2) mg/dL Total Protein 8.3 H (6.3-8.2) g/dL Albumin 5.1 H (3.5-5.0) g/dL Diabetes panel 12/17/20 Range/Units 14:02 Sodium 137 (137-145) mmol/L Potassium 3.9 (3.5-5.1) mmol/L Chloride 104 (98-107) mmol/L Carbon Dioxide 21 L (22-30) mmol/L BUN 8 (7-17) mg/dL Creatinine 0.63 (0.52-1.04) mg/dL Glucose 98 (74-99) mg/dL Calcium 10.3 H (8.4-10.2) mg/dL AST 24 (14-36) U/L ALT 13 (4-34) U/L Alkaline Phosphatase 49 (38-126) U/L Total Protein 8.3 H (6.3-8.2) g/dL Albumin 5.1 H (3.5-5.0) g/dL Calcium panel 12/17/20 Range/Units 14:02 Calcium 10.3 H (8.4-10.2) mg/dL Albumin 5.1 H (3.5-5.0) g/dL Pituitary panel 12/17/20 Range/Units 14:02 Sodium 137 (137-145) mmol/L Potassium 3.9 (3.5-5.1) mmol/L Chloride 104 (98-107) mmol/L Carbon Dioxide 21 L (22-30) mmol/L BUN 8 (7-17) mg/dL Creatinine 0.63 (0.52-1.04) mg/dL Glucose 98 (74-99) mg/dL Calcium 10.3 H (8.4-10.2) mg/dL Adrenal panel 12/17/20 Range/Units 14:02 Sodium 137 (137-145) mmol/L Potassium 3.9 (3.5-5.1) mmol/L Chloride 104 (98-107) mmol/L Carbon Dioxide 21 L (22-30) mmol/L BUN 8 (7-17) mg/dL Creatinine 0.63 (0.52-1.04) mg/dL Glucose 98 (74-99) mg/dL Calcium 10.3 H (8.4-10.2) mg/dL Total Bilirubin 0.9 (0.2-1.3) mg/dL AST 24 (14-36) U/L ALT 13 (4-34) U/L Alkaline Phosphatase 49 (38-126) U/L Total Protein 8.3 H (6.3-8.2) g/dL Albumin 5.1 H (3.5-5.0) g/dL - Imaging Chest x-ray: report reviewed, image reviewed Assessment and Plan Assessment: 1. Recurrent left-sided spontaneous pneumothorax, status post Thoravent placement by the emergency room physician, the patient had a spontaneous left- sided pneumothorax in August 2020 2. Pneumoperitoneum, likely secondary to above 3. History of ADHD 4. History of migraines 5. Lifetime nonsmoker Plan: The patient was seen and examined at her bedside on the third floor cardiac stepdown unit. Her chart and diagnostics were reviewed. Her case was discussed in detail with Dr. Matt Valle from cardiothoracic surgery. The patient has a left-sided Thoravent in place with intermittent air leak. Repeat chest x-ray this morning shows no sizable pneumothorax demonstrated, small amount of free a ir underneath the right hemidiaphragm. Due to her recurrence of her left-sided pneumothorax, treatment options were discussed including left-sided video- assisted thoracoscopic surgery with stapling of blebs and mechanical pleurodesis. Risks and benefits of surgery were discussed with the patient and knowing and understanding the risk the patient wishes to proceed with the surgical option. The patient is currently nothing by mouth and reports she has not had anything to eat since before midnight. Continue to encourage use of her incentive spirometry 10 times every hour while awake. Pain control per current when necessary orders. Toradol has been added to her pain management regimen. Medical management and other comorbidities per primary care service. More recommendations to follow based on patient's clinical course. Thank you for this consult and we look forward to following with you in the care of this patient. Time with Patient: Greater than 30
--- NOTE | 2020-12-18 09:16 | P.CNPUL ---
History of Present Illness Consult date: 12/18/20 Reason for consult: pneumothorax History of present illness: 35-year-old female patient who came into the emergency department yesterday because of another bout of pneumothorax. Her initial bottle pneumothorax was few months back when the patient presented with no peritoneal and a large left- sided pneumothorax. At that time, she underwent surgical evaluation and the pneumoperitoneum was thought to be related to her pneumothorax. The Thoravent was inserted. The left lung expanded and the patient was discharged home. During this current presentation, the patient felt in her abdomen and following that she started having acute left-sided chest pain. She also felt short of breath and she came into the emergency in the left lung was completely collapsed and she had a large left-sided pneumothorax. No hypotension. Thoravent was inserted. She had successfully reexpansion of the left lung. She had ongoing air leak. She was admitted to the medical floor. Thoracic surgery was involved in the case and the patient may be end up going for a thoracoscopic lung evaluation today. Otherwise she is feeling well. Repeat chest x-ray from today shows reexpansion of the left lung. GI surgery evaluated the patient. The patient was seen by Dr. Vargas. She does have some limited pneumoperitoneum with air under the diaphragm on the right. No abdominal pain. Nausea. No emesis. No difficulty in swallowing. No other complaints otherwise and the patient remains hemodynamically stable. CAT scan of the chest was done and it shows a tiny left apical pneumothorax mainly anterior, for the most part the left lung is adequately expanded. There is obvious evidence of pneumoperitoneum. Review of Systems Constitutional: Denies chills, Denies fever Eyes: denies as per HPI, denies blurred vision, denies bulging eye, denies decreased vision, denies diplopia, denies discharge, denies dry eye, denies irritation, denies itching, denies pain, denies photophobia, denies loss of peripheral vision, denies loss of vision, denies tunnel vision/blind spots Ears: deny: decreased hearing, ear discharge, earache, tinnitus Ears, nose, mouth and throat: Reports as per HPI Breasts: absent: as per HPI, change in shape, gynecomastia, masses, nipple discharge, pain, skin changes, swelling Cardiovascular: Reports chest pain Respiratory: Reports as per HPI Gastrointestinal: Reports as per HPI Genitourinary: Reports as per HPI Menstruation: Reports as per HPI Musculoskeletal: Reports as per HPI Musculoskeletal: absent: ankle pain, ankle stiffness, ankle swelling, as per HPI, elbow pain, elbow stiffness, elbow swelling, foot pain, foot stiffness, foot swelling, hand pain, hand stiffness, hand swelling, hip pain, hip stiffnes s, hip swelling, knee pain, knee stiffness, knee swelling, shoulder pain, shoulder stiffness, shoulder swelling, wrist pain, wrist stiffness, wrist swelling Integumentary: Reports as per HPI Neurological: Reports as per HPI Psychiatric: Reports as per HPI Endocrine: Reports as per HPI Hematologic/Lymphatic: Reports as per HPI Allergic/Immunologic: Reports as per HPI Past Medical History Past Medical History: No Reported History ( ) Additional Past Medical History / Comment(s): Migraines, history of spontaneous left pneumothorax in August 2020 with Thoravent placement History of Any Multi-Drug Resistant Organisms: None Reported Past Surgical History: Appendectomy, Section, Cholecystectomy Additional Past Surgical History / Comment(s): History of left-sided Thoravent for pneumothorax Past Anesthesia/Blood Transfusion Reactions: Unable to Obtain Additional Past Anesthesia/Blood Transfusion Reaction / Comment(s): No prior blood transfusions Past Psychological History: ADD/ADHD Smoking Status: Never smoker Past Alcohol Use History: Occasional Additional Past Alcohol Use History / Comment(s): couple times a year Past Drug Use History: None Reported - Past Family History Mother Family Medical History: No Reported History Father Family Medical History: No Reported History Medications and Allergies Home Medications Medication Instructions Recorded Confirmed Type Spironolactone [Aldactone] 50 mg PO DAILY 03/20/19 12/17/20 History Methylphenidate HCl [Concerta] 54 mg PO DAILY 06/27/20 12/17/20 History Methylphenidate HCl [Ritalin] 30 mg PO DAILY@1200 09/12/20 12/17/20 History Allergies Allergy/AdvReac Type Severity Reaction Status Date / Time sulfamethoxazole Allergy Rash/Hives Verified 12/17/20 14:13 [From Bactrim] trimethoprim [From Bactrim] Allergy Rash/Hives Verified 12/17/20 14:13 Physical Exam Vitals: Vital Signs Temp Pulse Pulse Resp BP BP Pulse Ox 12/18/20 04:00 76 16 100/55 98 12/18/20 02:00 77 16 12/18/20 00:00 97.8 F 77 16 109/57 96 12/17/20 20:00 97.9 F 77 16 120/72 98 12/17/20 18:24 96 18 139/92 100 12/17/20 17:19 80 17 125/90 12/17/20 16:19 130/90 12/17/20 15:19 104 H 16 120/90 100 12/17/20 14:19 18 123/83 100 12/17/20 13:55 18 12/17/20 13:17 98.4 F 84 18 151/89 100 Intake and Output 12/17/20 12/18/20 12/18/20 22:59 06:59 14:59 Other: Voiding Method Toilet Toilet # Voids 1 Weight 59.874 kg 59.1 kg - General Currently laying in bed on the third floor cardiac stepdown unit, appears comfortable, cooperative and is in no apparent acute distress. well developed, well nourished, no distress, no pain - Eyes PERRL, normal ocular movement, no pale, no icteric - ENT normal pinna, normal nares, normal mucosa, no hearing loss, no congestion - Neck Neck is supple, no JVD. no masses, no bruits, trachea midline, no venous distension - Respiratory Lung sounds essentially clear throughout. Respirations are symmetrical and nonlabored. Oxygen saturation are 98% on room air. Left chest Thoravent in place with intermittent air leak present. - Cardiovascular Regular rhythm and rate. S1 and S2 present, negative for S3, gallop or murmur. Remote telemetry showing normal sinus rhythm heart rate 69 BPM. No edema present. - Abdomen Abdomen is soft, nontender and nondistended. Active bowel sounds present all 4, quadrants. No guarding or rigidity. No organomegaly appreciated. - Integumentary Skin is warm and dry. No clubbing or cyanosis is present. no rash, no growths, no abnormal pigmentation - Neurologic Cranial nerves II through XII intact. No focal deficits. normal coordination, normal sensation - Musculoskeletal normal gait, normal posture - Psychiatric oriented to time, oriented to person, oriented to place, speech is normal, memory intact Results - Laboratory Findings CBC and BMP: 12/17/20 14:02 12/17/20 14:02 PT/INR, D-dimer PT 10.4 sec (9.0-12.0) 12/17/20 14:02 INR 1.0 (<1.2) 12/17/20 14:02 Abnormal lab findings: Abnormal Labs 12/17/20 12/17/20 14:02 15:59 Carbon Dioxide 21 L POC Glucose (mg/dL) 103 H Calcium 10.3 H Total Protein 8.3 H Albumin 5.1 H - Diagnostic Findings Chest x-ray: image reviewed CT scan - chest: image reviewed Assessment and Plan Plan: 1. Recurrent left-sided spontaneous pneumothorax, status post Thoravent placement by the emergency room physician, the patient had a spontaneous left- sided pneumothorax in August 2020. This is a recurrent event. Her alpha-1 antitrypsin status is not known. Note that the patient typically presents with no peritoneal along with pneumothorax. No signs of any acute abdomen. Abdominal exam is clear. The patient had successful expansion of the left lung with Thoravent. CAT scan of the chest and abdomen was noted. She has, comfortable and patient is currently on room air oxygen. She is a nonsmoker. 2. Pneumoperitoneum, likely secondary to above 3. History of ADHD 4. History of migraines 5. Lifetime nonsmoker Plan check alpha-1 antitrypsin levels Keep the Thoravent in place along with Pleur-evac and wall suction at 20 cm Using incentive spirometer Past surgical evaluation has been completed and the patient does not have any acute abdomen Possible thoracoscopic evaluation/surgical evaluation of the left lung today by thoracic surgery.
[2020-12-18] MEDS ORDERED: ROCURONIUM 10 MG/ML (5 ML VIAL) IV ONE (10:36)
[2020-12-18] MEDS ORDERED: HYDROmorphone (PF) 1 MG/ML ONE (10:36)
[2020-12-18] MEDS ORDERED: MIDAZOLAM 2 MG/2 ML VIAL ONE (10:36)
[2020-12-18] MEDS ORDERED: KETAMINE 10 MG/ML 20 ML VIAL ONE (10:36)
[2020-12-18] MEDS ORDERED: SUCCINYLCHOLINE CHLORIDE 100 MG/5 ML SYR IV ONE (10:36)
[2020-12-18] MEDS ORDERED: LIDOCAINE 1% INJ 10MG/ML (20 ML MDV) ONE (10:36)
[2020-12-18] MEDS ORDERED: NEOSTIGMINE 1 MG/ML 10 ML VIAL ONE (10:36)
[2020-12-18] MEDS ORDERED: GLYCOPYRROLATE 0.2 MG/ML 2 ML VIAL ONE (10:36)
[2020-12-18] MEDS ORDERED: PROPOFOL 10 MG/ML 20 ML VIAL IV ONE (10:36)
[2020-12-18] MEDS ORDERED: fentaNYL (PF) 50 MCG/ML 2 ML AMP ONE (10:36)
[2020-12-18] MEDS ORDERED: LACTATED RINGERS 1,000 ML IV ONE ×2 (10:37→13:01)
[2020-12-18] MEDS ORDERED: BUPIVACAINE (PF) 0.5% 30 ML VIAL SQ ONE ×3 (11:09→12:07)
--- NOTE | 2020-12-18 12:26 | P.OP ---
Date of Procedure: 12/18/20 Preoperative Diagnosis: Recurrent left spontaneous pneumothorax Postoperative Diagnosis: Same, possible endometriosis Procedure(s) Performed: Left thoracoscopy, left pleural biopsy 2, left lung biopsy 3, mechanical pleurodesis Anesthesia: MCKINLEY Surgeon: Matt Valle [employer] Superintendent #1: Ned Sherwood Estimated Blood Loss (ml): 10 IV fluids (ml): 800 Urine output (ml): 0 Pathology: other (Left pleural implant, left pleural biopsy, biopsy left upper lobe, biopsy left lower lobe (anterior), biopsy left lower lobe posterior) Condition: stable Disposition: PACU Indications for Procedure: 35-year-old female who initially presented this summer with a spontaneous left pneumothorax treated with a Thora vent. He presents at this time with recurrent symptomatology and chest x-ray that shows complete pneumothorax on the left. She had an 8 Thora vent placed with good expansion of the lung and recommendation was made for thoracoscopy with stapling and pleurodesis. Patient has known history of endometriosis and was suggested by her primary care that this might be the culprit. Preop CT of the chest did not show bleb disease. Operative Findings: The left lung had a very normal appearance. There was no evidence of blebs. There were multiple small yellow implants on the lung. The majority of these were less than a millimeter in size. A larger one on the right upper lobe was biopsied. There were also areas of thickened white pleura on the parietal pleura. Opposite the largest area of this the lung itself had a thickened and edematous appearing area of the visceral pleura and this was biopsied as the left posterior lower lobe biopsy. Anteriorly in the lower portion of the lower lobe there was an area of atelectasis that had some erythema that was suspicious. This area was also biopsied. Anteriorly in this region there were some small pleural implants and the largest of these was excised and sent for permanent section. Description of Procedure: The patient was brought to the operating room, placed supine on the operating table, anesthetized and intubated with a double-lumen endotracheal tube. Tube was positioned with fiberoptic bronchoscopy. Patient was turned on her right side and appropriately positioned for left thoracoscopy. The left chest was sterilely prepped and draped. After timeout initial incision was made in the sixth interspace in the midaxillary line. Was carried down through skin and subcutaneous tissue and muscle to the pleura. The pleura was incised video thoracoscope inserted. Single lung ventilation had been begun layers. Chest cavity was explored with the findings as noted above. 2 biopsies of the pleura and 3 biopsies of the lung were performed as noted above. Biopsies of the lung were performed with multiple firings of Endo DANIELLA stapler and medium thick loads. Pleural biopsies were performed with electrocautery excision. All the specimens were placed in formalin for permanent section. On completion of the biopsies and aggressive mechanical pleurodesis of the parietal pleura was performed throughout the left pleural space. 28-[place] chest tube was placed through separate stab incision anteriorly and positioned posterior apically. It was secured with an 0 Ethibond suture. The lung was reinflated under thoracoscopic visualization. Incisions were closed with layers of Vicryl suture. Skin glue was applied to the incisions and then Band-Aid dressings. Rib blocks were performed at the level of the incisions with half percent Marcaine. Chest tube was connected to a Pleur-evac. Draped drains were removed patient was turned supine and extubated and transferred to recovery in stable condition.
[2020-12-18] MEDS ORDERED: HYDROmorphone 0.5 MG/0.5 ML SYRINGE IVP ONE ×3 (12:38→12:52)
--- NOTE | 2020-12-18 12:53 | XR ---
EXAMINATION TYPE: XR chest 1V portable DATE OF EXAM: 12/18/2020 COMPARISON: 12/18/2020 HISTORY: Chest pain TECHNIQUE: Single frontal view of the chest is obtained. FINDINGS: Left-sided thoracic vent has been replaced with a left-sided chest tube. Tiny pneumothorax present e stimated at less than 5%. Left basilar pleural-parenchymal density in a small amount of subcutaneous air is seen. The cardiac silhouette size is within normal limits. Small amount of pneumoperitoneum persists. The osseous structures are intact. IMPRESSION: 1. Left-sided thoracic vent has been replaced with a left-sided chest tube. Tiny pneumothorax presen t estimated at less than 5%.
[2020-12-18] MEDS: fentaNYL (PF) 50 MCG/ML 2 ML AMP IVP ONE ×2 (12:57→13:01)
--- NOTE | 2020-12-18 13:20 | P.PN ---
Subjective This is a pleasant 35 years old female with past medical history of migraine, previous bilateral pneumothorax status post chest tube. She is a patient of Beata Joshi. She presents with dyspnea. Patient states that she was feeling in her belly for 2 weeks, last week she started having dyspnea but went to see her PCP and call her back later on with chest x-ray result showing pneumothorax on the left side was advised to come to emergency room. On the presentation vital signs stable and she is saturated 100% on room air. Labs including CBC, BMP, liver enzymes and lipase are unremarkable. [facility]gar chest x-ray showing just a tube in position with persistent large left sided pneumothorax with near complete collapse. Pneumo peritoneal virus not detected. CT of the abdomen showing pneumothorax and pneumoperitoneum off on significant etiology In the emergency room she received 1 dose of Zosyn, Dilaudid, Ativan. And normal saline I offered to do test for the patient but she declined stating that she has tubal ligation. Risks are explained 12/18/2020 this morning patient is with minimal symptoms while sitting in bed. No significant dyspnea, no abdominal pain or chest pain. This morning she went for left thoracoscopy with left pleural and lung biopsy with mechanical pleurodesis by surgery team. Hemodynamically stable. Labs are stable. Remains on gentle hydration. Surgery and pulmonary team also consult. Objective - Vital Signs Vital signs: Vital Signs Temp 97.8 F 12/18/20 12:24 Pulse 69 12/18/20 13:15 Resp 16 12/18/20 13:15 BP 104/60 12/18/20 13:15 Pulse Ox 99 12/18/20 13:15 Intake & Output 12/17/20 12/18/20 12/18/20 18:59 06:59 18:59 Intake Total 1000 Output Total 10 Balance 990 Weight 59.874 kg 59.1 kg Intake: IV 1000 Output: Estimated Blood Loss 10 Other: Voiding Method Toilet # Voids 1 1 - Exam GENERAL: The patient is alert and oriented x3, not in any acute distress. Well developed, well nourished. HEENT: Pupils are round and equally reacting to light. EOMI. No scleral icterus. No conjunctival pallor. Normocephalic, atraumatic. No pharyngeal erythema. No thyromegaly. CARDIOVASCULAR: S1 and S2 present. No murmurs, rubs, or gallops. PULMONARY: Chest is clear to auscultation, no wheezing or crackles. Left chest tube ABDOMEN: Soft, nontender, nondistended, normoactive bowel sounds. No palpable organomegaly. MUSCULOSKELETAL: No joint swelling or deformity. EXTREMITIES: No cyanosis, clubbing, or pedal edema. NEUROLOGICAL: Gross neurological examination did not reveal any focal deficits. SKIN: No rashes. no petechiae. - Labs CBC & Chem 7: 12/17/20 14:02 12/17/20 14:02 Labs: Abnormal Lab Results - Last 24 Hours (Table) 12/17/20 12/17/20 Range/Units 14:02 15:59 Carbon Dioxide 21 L (22-30) mmol/L POC Glucose (mg/dL) 103 H (75-99) mg/dL Calcium 10.3 H (8.4-10.2) mg/dL Total Protein 8.3 H (6.3-8.2) g/dL Albumin 5.1 H (3.5-5.0) g/dL Assessment and Plan Assessment: Left-sided pneumothorax with near complete collapse of the left leg, status post chest tube Pneumo peritoneal History of migraine Previous history of pneumothorax Plan: This is a pleasant 35 years old female who presents with left pneumothorax and pneumoperitoneum Continue with chest tube Follow-up recommendation by several consultants, pulmonary, cardiothoracic surgeon and general surgeon. Labs and medication were reviewed.. Continue same treatment. Continue with symptomatic treatment. Resume home medication. Monitor lytes and vitals. DVT and GI prophylaxis. Further recommendations as per clinical course of the patient DVT prophylaxis: Subcutaneous heparin GI Prophylaxis: Pepcid Prognosis is guarded
[2020-12-18] MEDS ORDERED: diphenhydrAMINE 50 MG/ML 1 ML VIAL ONE (13:28)
[2020-12-18] MEDS ORDERED: diphenhydrAMINE 50 MG/ML 1 ML VIAL IVP ONE (13:32)
[2020-12-18] MEDS ORDERED: DEXTROSE 5%-0.45% NACL 1,000 ML IV SCH (15:36)
[2020-12-18] MEDS: FAMOTIDINE 20 MG/2 ML VIAL IV SCH ×2 (15:52→21:23)
[2020-12-18] MEDS: HEPARIN SODIUM,PORCINE/PF 5,000 UNIT/0.5 ML SYRINGE SQ SCH ×2 (15:52→21:25)
[2020-12-18] MEDS: SODIUM CHLORIDE 0.9% 1,000 ML IV SCH ×2 (15:52→15:54)
[2020-12-18] MEDS: KETOROLAC 15 MG/ML 1 ML VIAL IVP SCH ×2 (15:53→18:18)
[2020-12-18] MEDS: traMADol 50 MG TAB PO SCH ×2 (16:10→21:23)
[2020-12-18] MEDS: SPIRONOLACTONE 25 MG TAB PO SCH (16:11)
[2020-12-18] MEDS: ACETAMINOPHEN IV (For NPO) 1,000 MG in EMPTY BAG 1 BAG IVPB SCH ×2 (16:15→21:25)
[2020-12-18 21:10] LABS: ABG Base Excess 1.7 mmol/L; ABG HCO3 27 mmol/L (21-25); ABG Oxygen Saturation 99.7 % (94-97); ABG PCO2 43 mmHg (35-45); ABG PO2 140 mmHg (83-108); ABG TCO2 28 mmol/L (19-24); Allen Test Performed? Yes
[2020-12-19] MEDS: KETOROLAC 15 MG/ML 1 ML VIAL IVP SCH ×4 (00:40→17:20)
--- NOTE | 2020-12-19 07:37 | XR ---
EXAMINATION TYPE: XR chest 1V portable DATE OF EXAM: 12/19/2020 COMPARISON: 12/18/2020 HISTORY: Left-sided chest tube TECHNIQUE: Single frontal view of the chest is obtained. FINDINGS: Left-sided chest tube is unchanged in position. Trace pneumothorax persists. Left basilar pleural-par enchymal density unchanged. Previously noted pneumoperitoneum not clearly visualized at this time. The cardiac silhouette size is within normal limits. The osseous structures are intact. IMPRESSION: 1. Left-sided chest tube is unchanged in position. Trace pneumothorax persists. Left basilar pleural -parenchymal density unchanged. Previously noted pneumoperitoneum not clearly visualized at this time .
[2020-12-19] MEDS: ACETAMINOPHEN TAB 500 MG TAB PO PRN ×3 (07:40→20:57)
--- NOTE | 2020-12-19 08:57 | P.PN ---
Subjective Progress Note Date: 12/19/20 Principal diagnosis: Recurrent left spontaneous pneumothorax, possible endometriosis. Past medical history significant for spontaneous left pneumothorax in August 2020 with left Thoravent placed, resolution of her pneumothorax and subsequently discharged home. She also has a past medical history significant for migraines, ADHD and she is a lifetime nonsmoker. POD #1 Left thoracoscopy, left pleural biopsy 2, left lung biopsy 3 and mechanical pleurodesis. The patient was seen in follow-up today 12/19/2020 at her bedside on the cardiac stepdown unit. Currently she is laying in bed, is awake, alert and oriented 3 and is in no acute distress. She denies any complaints of shortness of breath although she is complaining of some surgical type pain to her left chest tube insertion site. Currently rating her pain is 7 out of 10 on the pain scale. Oxygen saturation are 96% on room air and she is achieving 3281-3408 mL on her incentive spirometry with encouragement. Left pleural chest tube remains in place to low continuous wall suction -20 cm H2O. No air leak is present. Draining thin serosanguineous drainage with 210 mL output last 24 hours. She reports she has been up ambulating to the bathroom with assistance from nursing staff. Remains afebrile in the last 24 hours. Objective - Vital Signs Vital signs: Vital Signs Temp 97 F L 12/18/20 15:30 Pulse 85 12/19/20 02:00 Resp 18 12/19/20 02:00 BP 120/77 12/19/20 00:00 Pulse Ox 96 12/19/20 00:00 Intake & Output 12/18/20 12/19/20 12/19/20 18:59 06:59 18:59 Intake Total 1100 Output Total 10 925 Balance 1090 -925 Weight 63 kg Intake: IV 1100 Output: Drainage 275 Left Chest 275 Urine 650 Estimated Blood Loss 10 Other: Voiding Method Toilet # Voids 1 1 - Exam CONSTITUTIONAL: Currently laying in bed on the cardiac stepdown unit, appears comfortable, cooperative, no apparent acute distress. HEENT: Neck is supple, no JVD, no lymphadenopathy. RESPIRATORY: Lungs sounds essentially clear throughout, diminished to his bilateral bases, left greater than right. Respirations are symmetrical and nonlabored. Currently on room air with oxygen saturations 96%. Able to achieve 1500 -2000 mL on her incentive spirometry. Strong cough. CARDIOVASCULAR: Regular rhythm and rate. S1 and S2 present, negative for S3, gallop or murmur. No edema present. Knee-high sequential compression devices in place to bilateral lower extremities. GASTROINTESTINAL: Abdomen soft, nontender, nondistended. Active bowel sounds present 4 quadrants. Tolerating diet. Passing flatus. No guarding or rigidi ty. GENITOURINARY: Continues to void. INTEGUMENTARY: Skin is warm and dry with no evidence of clubbing or cyanosis. Left chest incisions clean, dry and approximated. Dressings clean dry and intact. NEUROLOGIC: Cranial nerves II through XII intact. No focal deficits. MUSKULOSKELETAL: Able to move all extremities, strength equal bilaterally. PSYCHIATRIC: Alert and oriented to person place and time, appropriate affect, intact judgment and insight. INVASIVE LINES AND TUBES: Left pleural chest tubes present and connected to low continuous wall suction, no air leaks present. Draining thin serosanguineous drainage with 210 mL output in the last 24 hours. - Allied health notes Allied health notes reviewed: nursing - Labs CBC & Chem 7: 12/17/20 14:02 12/17/20 14:02 Labs: Abnormal Lab Results - Last 24 Hours (Table) 12/18/20 Range/Units 21:05 ABG pO2 140 H (83-108) mmHg ABG HCO3 27 H (21-25) mmol/L ABG Total CO2 28 H (19-24) mmol/L ABG O2 Saturation 99.7 H (94-97) % - Imaging and Cardiology Chest x-ray: report reviewed, image reviewed Assessment and Plan Assessment: 1. Recurrent left-sided spontaneous pneumothorax, possible endometriosis status post Thoravent placement by the emergency room physician, the patient had a spontaneous left-sided pneumothorax in August 2020. Status post left thoracoscopy, left pleural biopsy 2, left lung biopsy 3 and mechanical pleurodesis 2. Pneumoperitoneum, resolved 3. History of ADHD 4. History of migraines 5. Lifetime nonsmoker Plan: 1. Keep left pleural chest tube to low continuous wall suction -20 cm H2O for another [address] to water seal tomorrow 12/20/2020 if no air leak is present. May remove chest tube from suction for ambulating. 2. Encourage use of her incentive spirometry 10 times every hour while awake. 3. Pain management per current when necessary orders. Ultram increased to 100 mg by mouth 3 times a day. 4. Increase activity as tolerated. Out of bed for all meals. 5. Medical management other comorbidities primary care service. 6. Continue to follow daily chest x-rays. 7. Continue to follow permanent section results. 8. More recommendations follow based on patient's clinical course. Time with Patient: Greater than 30
[2020-12-19 09:17] LABS: African American GFR (CKD) >90 (>60 ml/min/1.73 sqM); Anion Gap 5 mmol/L; Blood Urea Nitrogen 4 mg/dL (7-17); Calcium 8.9 mg/dL (8.4-10.2); Carbon Dioxide 24 mmol/L (22-30); Chloride 106 mmol/L (98-107); Glucose 98 mg/dL (74-99); Non-African American GFR(CKD) >90 (>60 ml/min/1.73 sqM); Potassium 3.9 mmol/L (3.5-5.1); Sodium 135 mmol/L (137-145)
[2020-12-19 09:18] LABS: Basophils % (A) 0 %; Eosinophils % (A) 0 %; HCT 34.8 % (34.0-46.0); Lymphocytes # (A) 1.3 k/uL (1.0-4.8); Lymphocytes % (A) 19 %; MCH 33.4 pg (25.0-35.0); MCHC 35.7 g/dL (31.0-37.0); MCV 93.7 fL (80.0-100.0); Mean Platelet Volume 8.3; Monocytes # (A) 0.5 k/uL (0-1.0); Monocytes % (A) 8 %; Neutrophils # (A) 5.1 k/uL (1.3-7.7); Neutrophils % (A) 72 %; Platelet Count 195 k/uL (150-450); RBC 3.71 m/uL (3.80-5.40); RDW 12.5 % (11.5-15.5)
[2020-12-19 09:21] LABS: HGB 12.4 gm/dL (11.4-16.0)
--- NOTE | 2020-12-19 10:04 | P.PN ---
Subjective Progress Note Date: 12/19/20 On today's evaluation of 12/20/2019, the patient is postop day #1 following Thoracoscopy, left pleural biopsy and mechanical pleurodesis. The patient is suspected to have an underlying endometriosis underlying her recurrent pneumothorax. For now, she is doing well. Pain is under good adequate control. The patient is using incentive spirometer. She is pulling approximately 2000 on her eye as. She is on room air oxygen with a pulse ox of 96%. Chest tube is in place. Total amount of output was around 210 0 cm amount of drainage over the past 24 hours. He is no evidence of any air leak. Repeat chest x-ray from today shows no evidence of any pneumothorax Objective - Vital Signs Vital signs: Vital Signs Temp 97 F L 12/18/20 15:30 Pulse 85 12/19/20 02:00 Resp 18 12/19/20 02:00 BP 120/77 12/19/20 00:00 Pulse Ox 96 12/19/20 00:00 Intake & Output 12/18/20 12/19/20 12/19/20 18:59 06:59 18:59 Intake Total 1100 Output Total 10 925 Balance 1090 -925 Weight 63 kg Intake: IV 1100 Output: Drainage 275 Left Chest 275 Urine 650 Estimated Blood Loss 10 Other: Voiding Method Toilet # Voids 1 1 - Exam CONSTITUTIONAL: Currently laying in bed on the cardiac stepdown unit, appears comfortable, cooperative, no apparent acute distress. HEENT: Neck is supple, no JVD, no lymphadenopathy. RESPIRATORY: Lungs sounds essentially clear throughout, diminished to his bilateral bases, left greater than right. Respirations are symmetrical and nonlabored. Currently on room air with oxygen saturations 96%. Able to achieve 1500 -2000 mL on her incentive spirometry. Strong cough. CARDIOVASCULAR: Regular rhythm and rate. S1 and S2 present, negative for S3, gallop or murmur. No edema present. Knee-high sequential compression devices in place to bilateral lower extremities. GASTROINTESTINAL: Abdomen soft, nontender, nondistended. Active bowel sounds present 4 quadrants. Tolerating diet. Passing flatus. No guarding or rigidity. GENITOURINARY: Continues to void. INTEGUMENTARY: Skin is warm and dry with no evidence of clubbing or cyanosis. Left chest incisions clean, dry and approximated. Dressings clean dry and intact. NEUROLOGIC: Cranial nerves II through XII intact. No focal deficits. MUSKULOSKELETAL: Able to move all extremities, strength equal bilaterally. PSYCHIATRIC: Alert and oriented to person place and time, appropriate affect, intact judgment and insight. INVASIVE LINES AND TUBES: Left pleural chest tubes present and connected to low continuous wall suction, no air leaks present. Draining thin serosanguineous drainage with 210 mL output in the last 24 hours. - Labs CBC & Chem 7: 12/19/20 08:39 12/19/20 08:39 Labs: Abnormal Lab Results - Last 24 Hours (Table) 12/18/20 12/19/20 12/19/20 Range/Units 21:05 08:39 08:39 RBC 3.71 L (3.80-5.40) m/uL ABG pO2 140 H (83-108) mmHg ABG HCO3 27 H (21-25) mmol/L ABG Total CO2 28 H (19-24) mmol/L ABG O2 Saturation 99.7 H (94-97) % Sodium 135 L (137-145) mmol/L BUN 4 L (7-17) mg/dL Creatinine 0.48 L (0.52-1.04) mg/dL Assessment and Plan Plan: 1. Recurrent left-sided spontaneous pneumothorax, postop day #1 post thoracoscopy, pleural biopsy, mechanical pleurodesis with an increased suspicion for endometriosis because of noted pleural surfaces abnormalities 2. Pneumoperitoneum, likely secondary to above 3. History of ADHD 4. History of migraines 5. Lifetime nonsmoker Plan check alpha-1 antitrypsin levels Awaiting final pathology regarding the possibility of pleural endometriosis Chest x-rays expanded and the chest tube is in a good location with minimal amount of output, no evidence of any air leak Keep the Thoravent in place along with Pleur-evac and wall suction at 20 cm Using incentive spirometer
[2020-12-19] MEDS: FAMOTIDINE 20 MG/2 ML VIAL IV SCH (10:24)
[2020-12-19] MEDS: SPIRONOLACTONE 25 MG TAB PO SCH (10:24)
[2020-12-19] MEDS: HEPARIN SODIUM,PORCINE/PF 5,000 UNIT/0.5 ML SYRINGE SQ SCH ×2 (10:25→20:57)
[2020-12-19] MEDS: traMADol 50 MG TAB PO SCH ×3 (10:25→22:27)
--- NOTE | 2020-12-19 15:28 | P.PN ---
Subjective This is a pleasant 35 years old female with past medical history of migraine, previous bilateral pneumothorax status post chest tube. She is a patient of Beata Joshi. She presents with dyspnea. Patient states that she was feeling in her belly for 2 weeks, last week she started having dyspnea but went to see her PCP and call her back later on with chest x-ray result showing pneumothorax on the left side was advised to come to emergency room. On the presentation vital signs stable and she is saturated 100% on room air. Labs including CBC, BMP, liver enzymes and lipase are unremarkable. [facility] chest x-ray showing just a tube in position with persistent large left sided pneumothorax with near complete collapse. Pneumo peritoneal virus not detected. CT of the abdomen showing pneumothorax and pneumoperitoneum off on significant etiology In the emergency room she received 1 dose of Zosyn, Dilaudid, Ativan. And normal saline I offered to do test for the patient but she declined stating that she has tubal ligation. Risks are explained 12/18/2020 this morning patient is with minimal symptoms while sitting in bed. No significant dyspnea, no abdominal pain or chest pain. This morning she went for left thoracoscopy with left pleural and lung biopsy with mechanical pleurodesis by surgery team. Hemodynamically stable. Labs are stable. Remains on gentle hydration. Surgery and pulmonary team also consult. 12/19/2020 Patient is asymptomatic while sitting in bed. She has a spontaneous pneumothorax and pneumoperitoneum. No chest pain today. She is saturating 96% and is oxygen dependent is a cannula. CBC and BMP are unremarkable. Showing persistent pneumothorax with chest tube in place. On the recommended check alpha-1 antitrypsin and follow-up biopsy for possible pleural endometriosis. IV fluids and antibiotics were discontinued which looks appropriate. Cardiothoracic surgery team on the case Objective - Vital Signs Vital signs: Vital Signs Temp 97 F L 12/18/20 15:30 Pulse 85 12/19/20 13:36 Resp 18 12/19/20 13:36 BP 120/77 12/19/20 00:00 Pulse Ox 96 12/19/20 00:00 Intake & Output 12/18/20 12/19/20 12/19/20 18:59 06:59 18:59 Intake Total 1100 Output Total 10 925 Balance 1090 -925 Weight 63 kg Intake: IV 1100 Output: Drainage 275 Left Chest 275 Urine 650 Estimated Blood Loss 10 Other: Voiding Method Toilet Toilet # Voids 1 1 - Exam GENERAL: The patient is alert and oriented x3, not in any acute distress. Well developed, well nourished. HEENT: Pupils are round and equally reacting to light. EOMI. No scleral icterus. No conjunctival pallor. Normocephalic, atraumatic. No pharyngeal erythema. No thyromegaly. CARDIOVASCULAR: S1 and S2 present. No murmurs, rubs, or gallops. PULMONARY: Chest is clear to auscultation, no wheezing or crackles. Left chest tube ABDOMEN: Soft, nontender, nondistended, normoactive bowel sounds. No palpable organomegaly. MUSCULOSKELETAL: No joint swelling or deformity. EXTREMITIES: No cyanosis, clubbing, or pedal edema. NEUROLOGICAL: Gross neurological examination did not reveal any focal deficits. SKIN: No rashes. no petechiae. - Labs CBC & Chem 7: 12/19/20 08:39 12/19/20 08:39 Labs: Abnormal Lab Results - Last 24 Hours (Table) 12/18/20 12/19/20 12/19/20 Range/Units 21:05 08:39 08:39 RBC 3.71 L (3.80-5.40) m/uL ABG pO2 140 H (83-108) mmHg ABG HCO3 27 H (21-25) mmol/L ABG Total CO2 28 H (19-24) mmol/L ABG O2 Saturation 99.7 H (94-97) % Sodium 135 L (137-145) mmol/L BUN 4 L (7-17) mg/dL Creatinine 0.48 L (0.52-1.04) mg/dL Assessment and Plan Assessment: Left-sided pneumothorax with near complete collapse of the left leg, status post chest tube Pneumo peritoneal History of migraine Previous history of pneumothorax Plan: This is a pleasant 35 years old female who presents with left pneumothorax and pneumoperitoneum Continue with chest tube Follow-up recommendation by several consultants, pulmonary, cardiothoracic surgeon and general surgeon. Labs and medication were reviewed.. Continue same treatment. Continue with symptomatic treatment. Resume home medication. Monitor lytes and vitals. DVT and GI prophylaxis. Further recommendations as per clinical course of the patient DVT prophylaxis: Subcutaneous heparin GI Prophylaxis: Pepcid Prognosis is guarded
[2020-12-19] MEDS: FAMOTIDINE 20 MG TAB PO SCH (20:56)
[2020-12-20] MEDS: KETOROLAC 15 MG/ML 1 ML VIAL IVP SCH ×5 (00:10→23:00)
--- NOTE | 2020-12-20 11:37 | P.PN ---
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 Past medical history significant for spontaneous left pneumothorax in August 2020 with left Thoravent placed, resolution of her pneumothorax and subsequently discharged home. She also has a past medical history significant for migraines, ADHD and she is a lifetime nonsmoker. POD #2 Left thoracoscopy, left pleural biopsy 2, left lung biopsy 3 and mechanical pleurodesis. Patient's currently sitting up in bed on the cardiac stepdown unit in no acute distress. She states chest tube site does hurt a bit with deep breaths and coughing, otherwise denies any pain or shortness of breath. Remains in normal sinus rhythm and hemodynamically stable. Currently on room air with oxygen saturation 96%. Able to achieve 1000 mL on incentive spirometry. Left-sided chest tube present to continuous wall suction without any air leak present. No new concerns Objective - Vital Signs Vital signs: Vital Signs Temp 98.2 F 12/20/20 04:00 Pulse 76 12/20/20 04:00 Resp 16 12/20/20 04:00 BP 110/74 12/20/20 04:00 Pulse Ox 96 12/20/20 04:00 Intake & Output 12/19/20 12/20/20 12/20/20 18:59 06:59 18:59 Intake Total 180 10 100 Output Total 150 Balance 180 -140 100 Weight 63.5 kg Intake: IV 10 Invasive Line 1 10 Oral 180 100 Output: Chest Tube Drainage 150 Left 150 Other: Voiding Method Toilet Toilet - Exam CONSTITUTIONAL: Appears comfortable, cooperative, no acute distress RESPIRATORY: Lungs sounds diminished bilaterally. Respirations even, nonlabored. Currently on room air with oxygen saturation 96%. Able to achieve 1000 mL on incentive spirometry. Strong cough. CARDIOVASCULAR: S1, S2 present. Regular rate and rhythm, sinus rhythm on telemetry. Palpable peripheral pulses bilaterally. No edema present. GASTROINTESTINAL: Abdomen soft, nontender, nondistended. Active bowel sounds present 4 quadrants. Tolerating diet. GENITOURINARY: Continues to void clear, yellow urine INTEGUMENTARY: Skin is warm and dry with evidence of good perfusion. NEUROLOGIC: Cranial nerves II through XII intact MUSKULOSKELETAL: Able to move all extremities, strength equal bilaterally, gait normal PSYCHIATRIC: Alert and oriented to person place and time, appropriate affect, intact judgment and insight INVASIVE LINES AND TUBES: Left pleural chest tube present and connected to wall suction, no air leaks present, 40 mL serosanguineous drainage overnight, 140 mL in the last 24 hours. - Labs CBC & Chem 7: 12/19/20 08:39 12/19/20 08:39 Assessment and Plan Assessment: 1. Recurrent left-sided spontaneous pneumothorax, possible endometriosis status post Thoravent placement by the emergency room physician, the patient had a spontaneous left-sided pneumothorax in August 2020. Status post left thoracoscopy, left pleural biopsy 2, left lung biopsy 3 and mechanical pleurodesis 2. Pneumoperitoneum, resolved 3. History of ADHD 4. History of migraines 5. Lifetime nonsmoker Plan: 1. Keep left pleural chest tube to low continuous wall suction -20 cm H2O for another 24 hours. May remove chest tube from suction for ambulating. 2. Encourage use of her incentive spirometry 10 times every hour while awake. 3. Pain management per current when necessary orders. 4. Increase activity as tolerated. Out of bed for all meals. 5. Medical management other comorbidities primary care service. 6. Continue to follow daily chest x-rays. 7. Continue to follow permanent section results. 8. More recommendations follow based on patient's clinical course. Time with Patient: Greater than 30
[2020-12-20] MEDS: FAMOTIDINE 20 MG TAB PO SCH ×2 (11:49→20:19)
[2020-12-20] MEDS: SPIRONOLACTONE 25 MG TAB PO SCH (11:49)
[2020-12-20] MEDS: traMADol 50 MG TAB PO SCH ×3 (11:50→20:19)
[2020-12-20] MEDS: HEPARIN SODIUM,PORCINE/PF 5,000 UNIT/0.5 ML SYRINGE SQ SCH ×2 (11:52→20:19)
--- NOTE | 2020-12-20 12:26 | P.PN ---
Subjective Progress Note Date: 12/20/20 This is a pleasant 35-year-old female admitted with recurrent left-sided pneumothorax, possible endometriosis, , status post left thoracoscopy with pleural biopsy, left lung biopsy and mechanical pleurodesis. Tolerated procedure well. Left-sided chest tube to continuous wall suction. Complains of chest tube site discomfort. States her mom had endometriosis without involvement of the lung. Patient states she is due for her menstrual cycle any day, reports history of tubes removed as well. VSS, Maintaining O2 sats in the high 90s on room air, telemetry sinus rhythm. Denies chest pain, palpitations or increased shortness of breath. Objective - Vital Signs Vital signs: Vital Signs Temp 98.2 F 12/20/20 04:00 Pulse 76 12/20/20 04:00 Resp 16 12/20/20 04:00 BP 110/74 12/20/20 04:00 Pulse Ox 96 12/20/20 04:00 Intake & Output 12/19/20 12/20/20 12/20/20 18:59 06:59 18:59 Intake Total 180 10 100 Output Total 150 Balance 180 -140 100 Weight 63.5 kg Intake: IV 10 Invasive Line 1 10 Oral 180 100 Output: Chest Tube Drainage 150 Left 150 Other: Voiding Method Toilet Toilet - Exam - Exam GENERAL: alert and oriented x3,NAD. HEENT: Pupils are round and equally reacting to light. EOMI. No scleral icterus. No conjunctival pallor. Normocephalic, atraumatic. Neck supple, no JVD CARDIOVASCULAR: S1 and S2 present. No murmurs, rubs, or gallops. PULMONARY: Chest is clear to auscultation, no wheezing or crackles, bilateral bases diminished. Left chest tube present ABDOMEN: Soft, nontender, nondistended, normoactive bowel sounds. No palpable organomegaly. EXTREMITIES: No cyanosis, clubbing, or pedal edema. NEUROLOGICAL: Gross neurological examination did not reveal any focal deficits. SKIN: Warm and dry, No rashes. 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 Status post left thoracoscopy with pleural biopsy, left lung biopsy and mechanical pleurodesis. History of migraine Previous history of pneumothorax Plan: Continue on current medication regime ,monitoring and symptomatic treatment. [employer] consulted. Pathology pending. Aggressive pulmonary toileting with incentive spirometer reinforced.Follow closely with pulmonary and cardiothoracic surgery. The impression and plan of care has been dictated as directed. : I performed a history and examination of this patient, discussed the same with the dictator. I agree with the dictator's note ,documented as a scribe. Any additional findings or plans will be noted.
--- NOTE | 2020-12-20 15:02 | P.PN ---
Subjective Progress Note Date: 12/20/20 Principal diagnosis: Recurrent left-sided pneumothorax Patient was reevaluated today on 12/20/20, she is status post left thoracoscopy and left pleural biopsy with mechanical pleurodesis postoperative day #2, patient is doing great, she is on room air, O2 sats is 96%, continues to have chest tube in place, chest x-ray showed no pneumothorax and there is no evidence of air leak in the pleural VAC. Objective - Vital Signs Vital signs: Vital Signs Temp 98 F 12/20/20 08:00 Pulse 84 12/20/20 12:00 Resp 18 12/20/20 12:00 BP 130/72 12/20/20 12:00 Pulse Ox 98 12/20/20 12:00 Intake & Output 12/19/20 12/20/20 12/20/20 18:59 06:59 18:59 Intake Total 180 10 100 Output Total 150 Balance 180 -140 100 Weight 63.5 kg Intake: IV 10 Invasive Line 1 10 Oral 180 100 Output: Chest Tube Drainage 150 Left 150 Other: Voiding Method Toilet Toilet - Exam Physical Exam revealed a 35-year-old female in no distress. Head: Atraumatic, normocephalic. HEENT:[Neck is supple.] [No neck masses.] [No thyromegaly.] [No JVD.] Chest: [Clear throughout, no crackles, no rhonchi, no wheezes.] Sided chest t ube is noted in place. Cardiac Exam: [Normal S1 and S2, no S3 gallop, no murmur.] Abdomen: [Soft, nontender, no megaly, no rebound, no guarding, normal bowel sounds.] Extremities: [No clubbing, no edema, no cyanosis.] Neurological Exam: [No focal neurologic deficit.] Skin: No rashes. - Labs CBC & Chem 7: 12/19/20 08:39 12/19/20 08:39 Assessment and Plan Assessment: Impression: Recurrent left-sided pneumothorax, spontaneous, status post thoracoscopy left pleural biopsy 2 and mechanical pleurodesis. History of ADHD. Lifetime nonsmoker. Recommendation: Continue chest tube to suction for the next 24 hours. Continue incentive spirometer. Increase activity as tolerated. Possible removal of chest tube in the next 24-48 hours. We will continue to follow. Time with Patient: Less than 30
[2020-12-20] MEDS: ACETAMINOPHEN TAB 500 MG TAB PO PRN ×2 (16:15→22:57)
[2020-12-21] MEDS: KETOROLAC 15 MG/ML 1 ML VIAL IVP SCH (05:44)
[2020-12-21] MEDS: ACETAMINOPHEN TAB 500 MG TAB PO PRN ×3 (05:45→20:18)
[2020-12-21] MEDS: SPIRONOLACTONE 25 MG TAB PO SCH (09:32)
[2020-12-21] MEDS: traMADol 50 MG TAB PO SCH ×3 (09:32→20:18)
[2020-12-21] MEDS: HEPARIN SODIUM,PORCINE/PF 5,000 UNIT/0.5 ML SYRINGE SQ SCH ×2 (09:34→20:17)
[2020-12-21] MEDS: FAMOTIDINE 20 MG TAB PO SCH ×2 (09:34→20:17)
--- NOTE | 2020-12-21 09:38 | XR ---
"EXAMINATION TYPE: XR chest 2V DATE OF EXAM: 12/21/2020 COMPARISON: Chest x-ray 12/21/2020 HISTORY: Chest tube, postop TECHNIQUE: Frontal and lateral views of the chest are obtained. FINDINGS: Crescentic lucency is present beneath the right hemidiaphragm. Left-sided chest tube remai ns in place. Basilar density noted on the left, the hemidiaphragm is obscured and the left costophren ic angle is blunted. Cardiac mediastinal silhouette is stable. IMPRESSION: Interval development of pneumoperitoneum. A [place] critical message alert has been initiated for SAMUEL [id number] via the [facility] 36 0 | Critical Results System on 12/21/2020 9:36 AM. This message alert has been sent to Mansi [id number] via the preferences provided by the clinician for the receipt of Radiology Critical Findings. Message ID [id number]."
--- NOTE | 2020-12-21 09:55 | P.PN ---
Subjective Progress Note Date: 12/21/20 Principal diagnosis: Recurrent left spontaneous pneumothorax, possible endometriosis. Past medical history significant for spontaneous left pneumothorax in August 2020 with left Thoravent placed, resolution of her pneumothorax and subsequently discharged home. She also has a past medical history significant for migraines, ADHD and she is a lifetime nonsmoker. POD #3 Left thoracoscopy, left pleural biopsy 2, left lung biopsy 3 and mechanical pleurodesis. The patient was seen in follow-up today 12/21/2020 at her bedside on the cardiac stepdown unit. Currently she is laying in bed, is awake, alert and oriented 3 and is in no acute distress. She denies any complaints of shortness of breath although her pain at this time. Left pleural chest tube remains in place to low continuous wall suction -20 cm H2O. No air leak is present. Draining thin serosanguineous drainage with 150 mL output last 24 hours. Oxygen saturations are 98% on room air and she is achieving 1500 mL on her incentive spirometry with encouragement. Surgical pathology results remain pending. She reports she has been up ambulating in her room with minimal since her some nursing staff and up ambulating to the bathroom. Objective - Vital Signs Vital signs: Vital Signs Temp 98.1 F 12/21/20 03:26 Pulse 85 12/21/20 03:26 Resp 16 12/21/20 03:26 BP 122/85 12/21/20 03:26 Pulse Ox 98 12/21/20 03:26 Intake & Output 12/20/20 12/21/20 12/21/20 18:59 06:59 18:59 Intake Total 100 Output Total 90 40 Balance 10 -40 Weight 64.3 kg Intake: Oral 100 Output: Chest Tube Drainage 90 40 Left 90 40 Other: Voiding Method Toilet Toilet - Exam CONSTITUTIONAL: Currently laying in bed on the cardiac stepdown unit, appears comfortable, cooperative, no apparent acute distress. HEENT: Neck is supple, no JVD, no lymphadenopathy. RESPIRATORY: Lungs sounds essentially clear throughout, diminished to his bilateral bases, left greater than right. Respirations are symmetrical and nonlabored. Currently on room air with oxygen saturations 98%. Able to achieve 1500 mL on her incentive spirometry. Strong cough. CARDIOVASCULAR: Regular rhythm and rate. S1 and S2 present, negative for S3, gallop or murmur. No edema present. Knee-high sequential compression devices in place to bilateral lower extremities. GASTROINTESTINAL: Abdomen soft, nontender, nondistended. Active bowel sounds present 4 quadrants. Tolerating diet. Passing flatus. No guarding or rigidity. GENITOURINARY: Continues to void. INTEGUMENTARY: Skin is warm and dry with no evidence of clubbing or cyanosis. Left chest incisions clean, dry and approximated. Dressings clean dry and intact. NEUROLOGIC: Cranial nerves II through XII intact. No focal deficits. MUSKULOSKELETAL: Able to move all extremities, strength equal bilaterally. PSYCHIATRIC: Alert and oriented to person place and time, appropriate affect, intact judgment and insight. INVASIVE LINES AND TUBES: Left pleural chest tubes present and connected to low continuous wall suction, no air leaks present. Draining thin serosanguineous drainage with 150 mL output in the last 24 hours. - Allied health notes Allied health notes reviewed: nursing - Labs CBC & Chem 7: 12/19/20 08:39 12/19/20 08:39 - Imaging and Cardiology Chest x-ray: report reviewed, image reviewed Assessment and Plan Assessment: 1. Recurrent left-sided spontaneous pneumothorax, possible endometriosis status post Thoravent placement by the emergency room physician, the patient had a spontaneous left-sided pneumothorax in August 2020. Status post left thoracoscopy, left pleural biopsy 2, left lung biopsy 3 and mechanical pleurodesis 2. Pneumoperitoneum, resolved 3. History of ADHD 4. History of migraines 5. Lifetime nonsmoker Plan: 1. We will place to water seal today. Continue to monitor for air leak. 2. Encourage use of her incentive spirometry 10 times every hour while awake. 3. Pain management per current when necessary orders. 4. Increase activity as tolerated. Out of bed for all meals. 5. Medical management other comorbidities primary care service. 6. Continue to follow daily chest x-rays. 7. Continue to follow permanent section results. 8. If her pathology comes back positive for endometriosis she will need to follow-up with her primary care physician and PROGRAM ENGINEER on an outpatient basis. 9. More recommendations follow based on patient's clinical course. Time with Patient: Greater than 30
--- NOTE | 2020-12-21 10:57 | P.PN ---
Subjective Progress Note Date: 12/21/20 This is a pleasant 35-year-old female admitted with recurrent left-sided pneumothorax, possible endometriosis, , status post left thoracoscopy with pleural biopsy, left lung biopsy and mechanical pleurodesis. Tolerated procedure well. Left-sided chest tube to continuous wall suction. Complains of chest tube site discomfort. States her mom had endometriosis without involvement of the lung. Patient states she is due for her menstrual cycle any day, reports history of tubes removed as well. VSS, Maintaining O2 sats in the high 90s on room air, telemetry sinus rhythm. Denies chest pain, palpitations or increased shortness of breath. 12/21/2020 left pleural chest tube remains to low continuous wall suction. No evidence of air leak .minimal serosanguineous chest tube drainage of 100-150ml over last 24 hours.Chest x-ray pending.Complains of chest tube site soreness, ambulating around in room more. Denies chest pain, palpitations or increasing shortness of breath. Incentive spirometer up to 1500 MLS. Maintaining O2 sats in the high 90s on room air. Surgical pathology/cytology pending. Afebrile, normal WBC. Objective - Vital Signs Vital signs: Vital Signs Temp 98.1 F 12/21/20 03:26 Pulse 85 12/21/20 03:26 Resp 16 12/21/20 03:26 BP 122/85 12/21/20 03:26 Pulse Ox 98 12/21/20 03:26 Intake & Output 12/20/20 12/21/20 12/21/20 18:59 06:59 18:59 Intake Total 100 Output Total 90 40 Balance 10 -40 Weight 64.3 kg Intake: Oral 100 Output: Chest Tube Drainage 90 40 Left 90 40 Other: Voiding Method Toilet Toilet - Exam - Exam GENERAL: alert and oriented x3,NAD. HEENT: Pupils are round and equal, EOMI. No scleral icterus. No conjunctival pallor. Normocephalic, atraumatic. Neck supple, no JVD CARDIOVASCULAR: S1 and S2 present. No murmurs, rubs, or gallops. PULMONARY: Chest is clear to auscultation, no wheezing or crackles, bilateral bases diminished. Left chest tube present ABDOMEN: Soft, nontender, nondistended, normoactive bowel sounds. No palpable organomegaly. Positive bowel sounds EXTREMITIES: No cyanosis, clubbing, or pedal edema. NEUROLOGICAL: Gross neurological examination did not reveal any focal deficits. SKIN: Warm and dry, No rashes. 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 Status post left thoracoscopy with pleural biopsy, left lung biopsy and mechanical pleurodesis. History of migraine Previous history of pneumothorax Plan: Continue on current medication regime ,monitoring and symptomatic treatment. Chest x-ray pending AGRICULTURAL ECONOMICS TEACHER recommended outpatient evaluation-consult canceled. At discharge discussed with patient following up with a tertiary center AGRICULTURAL ECONOMICS TEACHER, to be arranged as per PCP.Pathology pending. Maintain aggressive pulmonary toileting with incentive spirometer reinforced. The impression and plan of care has been dictated as directed. : I performed a history and examination of this patient, discussed the same with the dictator. I agree with the dictator's note ,documented as a scribe. Any additional findings or plans will be noted.
--- NOTE | 2020-12-21 14:01 | XR ---
EXAMINATION TYPE: XR chest 1V portable DATE OF EXAM: 12/20/2020 COMPARISON: Chest x-ray 12/19/2020 HISTORY: Postop, chest tube TECHNIQUE: Single frontal view of the chest is obtained. FINDINGS: Exam submitted for interpretation on 12/21/2020 Minimal crescentic lucency present beneath the right hemidiaphragm has become more conspicuous on exa m of 12/21/2020, surgery was informed on this date. Surgical clips present right upper quadrant. Ther e is contrast material within the bowel. Left-sided chest tube is in place. Basilar density is noted as noted on prior exam. No sizable pneumo thorax. Cardiac mediastinal silhouette is within normal limits. Patient is rotated. IMPRESSION: Postprocedural findings. Pneumoperitoneum, surgery is aware.
--- NOTE | 2020-12-21 14:09 | XR ---
EXAMINATION TYPE: XR chest 1V DATE OF EXAM: 12/21/2020 COMPARISON: Chest x-ray same date at earlier time HISTORY: Pneumothorax, chest tube TECHNIQUE: Single frontal view of the chest is obtained. FINDINGS: Left-sided chest tube remains in place. Pneumothorax is increased as compared to prior exa m and measures roughly 5%. No other significant interval change. Pneumoperitoneum is again noted. IMPRESSION: Pneumothorax is seen on the left and has recurred, not seen on prior exam
--- NOTE | 2020-12-21 16:17 | P.PN ---
Subjective Progress Note Date: 12/21/20 Principal diagnosis: Recurrent left-sided pneumothorax On 12/21/2020 patient seen in follow-up on selective care unit, she is on room air, the pulse ox of 95-97%, she is afebrile, hemodynamically she is stable. Her left chest tube was placed to waterseal, there is still occasional air leak in the water chamber. This morning's chest x-ray showed left-sided chest tube in place, basilar density on the left and interval development of pneumoperitoneum. Clinically patient has been stable, no worsening shortness of breath, her breathing is fairly comfortable, her pain is under adequate control. She is working on incentive spirometer, she is achieving 1.5 L on incentive spi rometer. On the follow-up chest x-ray this afternoon showed no sizable pneumothorax, left-sided chest tube remains in place, pneumoperitoneum, on follow-up chest x-ray was obtained at 2:00 this afternoon showing pneumothorax on the left measuring roughly 5%, and pneumoperitoneum was again noted. CT surgery and general surgery are on the case Objective - Vital Signs Vital signs: Vital Signs Temp 98.1 F 12/21/20 03:26 Pulse 78 12/21/20 12:00 Resp 16 12/21/20 12:00 BP 127/82 12/21/20 12:00 Pulse Ox 95 12/21/20 12:00 Intake & Output 12/20/20 12/21/20 12/21/20 18:59 06:59 18:59 Intake Total 100 1200 Output Total 90 40 Balance 10 -40 1200 Weight 64.3 kg Intake: Oral 100 1200 Output: Chest Tube Drainage 90 40 Left 90 40 Other: Voiding Method Toilet Toilet Toilet - Exam GENERAL EXAM: Alert, very pleasant, 35-year-old white female, on room air with a pulse ox of 95% comfortable in no apparent distress. HEAD: Normocephalic/atraumatic. EYES: Normal reaction of pupils, equal size. Conjunctiva pink, sclera white. NOSE: Clear with pink turbinates. THROAT: No erythema or exudates. NECK: No masses, no JVD, no thyroid enlargement, no adenopathy. CHEST: No chest wall deformity. Symmetrical expansion. Left-sided chest tube is in place, to waterseal, with intermittent air leak LUNGS: Equal air entry with no crackles, wheeze, rhonchi or dullness. CVS: Regular rate and rhythm, normal S1 and S2, no gallops, no murmurs, no rubs ABDOMEN: Soft, nontender. No hepatosplenomegaly, normal bowel sounds, no guarding or rigidity. EXTREMITIES: No clubbing, no edema, no cyanosis, 2+ pulses and upper and lower extremities. MUSCULOSKELETAL: Muscle strength and tone normal. SPINE: No scoliosis or deformity SKIN: No rashes CENTRAL NERVOUS SYSTEM: Alert and oriented -3. No focal deficits, tone is normal in all 4 extremities. PSYCHIATRIC: Alert and oriented -3. Appropriate affect. Intact judgment and insight. - Labs CBC & Chem 7: 12/19/20 08:39 12/19/20 08:39 Assessment and Plan Plan: Assessment: #1. Recurrent left-sided pneumothorax, spontaneous, status post thoracoscopy, left pleural biopsy 2 and mechanical pleurodesis on 12/18/2020 #2. Pneumoperitoneum #3. History of ADHD #4. History of migraine headaches #5. Lifetime nonsmoker Plan: Chest x-rays from today were reviewed There is pneumoperitoneum, and 5% pneumothorax on the left CT surgery is following, general surgery is following Clinical patient has remained stable, vitals are stable Left chest tube is to water seal with intermittent air leak We'll continue to follow her clinical course Encourage deep breathing and coughing Follow-up chest x-ray in the morning I performed a history & physical examination of the patient and discussed their management with my nurse practitioner, Viridiana Xie. I reviewed the nurse practitioner's note and agree with the documented findings and plan of care. Lung sounds are positive for diminished breath sounds throughout the lung mireles. The findings and the impression was discussed with the patient. I attest to the documentation by the nurse practitioner. Time with Patient: Less than 30
[2020-12-22] MEDS: ACETAMINOPHEN TAB 500 MG TAB PO PRN ×2 (06:03→12:10)
[2020-12-22] MEDS: traMADol 50 MG TAB PO SCH ×3 (08:21→21:15)
[2020-12-22] MEDS: FAMOTIDINE 20 MG TAB PO SCH ×2 (08:22→21:16)
[2020-12-22] MEDS: SPIRONOLACTONE 25 MG TAB PO SCH (08:22)
[2020-12-22] MEDS: HEPARIN SODIUM,PORCINE/PF 5,000 UNIT/0.5 ML SYRINGE SQ SCH ×2 (08:22→21:16)
--- NOTE | 2020-12-22 09:19 | XR ---
EXAMINATION TYPE: XR chest 1V portable DATE OF EXAM: 12/22/2020 COMPARISON: Chest x-ray 12/21/2020 HISTORY: Chest tube, pneumothorax TECHNIQUE: Single frontal view of the chest is obtained. FINDINGS: Left-sided chest tube is stable. Minimal left-sided apical pneumothorax is present. Patchy basilar density persists on the left. Pneumoperitoneum again noted. Cardiac mediastinal silhouette i s unchanged. Contrast material remains within the bowel. IMPRESSION: No significant interval change. Pneumoperitoneum, minimal apical pneumothorax, additiona l findings above.
--- NOTE | 2020-12-22 09:45 | P.PN ---
Subjective Progress Note Date: 12/22/20 Principal diagnosis: Recurrent left spontaneous pneumothorax, possible endometriosis. Past medical history significant for spontaneous left pneumothorax in August 2020 with left Thoravent placed, resolution of her pneumothorax and subsequently discharged home. She also has a past medical history significant for migraines, ADHD and she is a lifetime nonsmoker. POD #4 Left thoracoscopy, left pleural biopsy 2, left lung biopsy 3 and mechanical pleurodesis. Patient's currently sitting up in bed on the cardiac stepdown unit in no acute distress. She states chest tube site does hurt a bit with deep breaths and coughing, otherwise denies any pain or shortness of breath. Remains in normal sinus rhythm and hemodynamically stable. Currently on room air with oxygen saturation 97%. Able to achieve 1250 mL on incentive spirometry. Left-sided chest tube present to continuous wall suction without any air leak present. No new concerns Objective - Vital Signs Vital signs: Vital Signs Temp 98 F 12/22/20 08:00 Pulse 73 12/22/20 08:00 Resp 16 12/22/20 08:00 BP 104/70 12/22/20 08:00 Pulse Ox 97 12/22/20 08:00 Intake & Output 12/21/20 12/22/20 12/22/20 18:59 06:59 18:59 Intake Total 1800 240 Output Total 100 Balance 1800 140 Intake: Oral 1800 240 Output: Chest Tube Drainage 100 Left 100 Other: Voiding Method Toilet Toilet - Exam CONSTITUTIONAL: Appears comfortable, cooperative, no acute distress RESPIRATORY: Lungs sounds diminished bilaterally. Respirations even, nonlabor ed. Currently on room air with oxygen saturation 97%. Able to achieve 1250 mL on incentive spirometry. Strong cough. CARDIOVASCULAR: S1, S2 present. Regular rate and rhythm, sinus rhythm on tel emetry. Palpable peripheral pulses bilaterally. No edema present. GASTROINTESTINAL: Abdomen soft, nontender, nondistended. Active bowel sounds present 4 quadrants. Tolerating diet. GENITOURINARY: Continues to void clear, yellow urine INTEGUMENTARY: Skin is warm and dry with evidence of good perfusion. NEUROLOGIC: Cranial nerves II through XII intact MUSKULOSKELETAL: Able to move all extremities, strength equal bilaterally, gait normal PSYCHIATRIC: Alert and oriented to person place and time, appropriate affect, intact judgment and insight INVASIVE LINES AND TUBES: Left pleural chest tube present and connected to wall suction, no air leaks present, 30 mL serosanguineous drainage overnight, 150 mL in the last 24 hours. - Allied health notes Allied health notes reviewed: nursing - Labs CBC & Chem 7: 12/19/20 08:39 12/19/20 08:39 - Imaging and Cardiology Chest x-ray: report reviewed, image reviewed Assessment and Plan Assessment: 1. Recurrent left-sided spontaneous pneumothorax, possible endometriosis status post Thoravent placement by the emergency room physician, the patient had a spontaneous left-sided pneumothorax in August 2020. Status post left thoracoscopy, left pleural biopsy 2, left lung biopsy 3 and mechanical pleurodesis 2. Pneumoperitoneum, resolved 3. History of ADHD 4. History of migraines 5. Lifetime nonsmoker Plan: 1. Left pleural chest tube placed to waterseal. Will repeat chest x-ray at 2 PM 2. Encourage use of her incentive spirometry 10 times every hour while awake. 3. Pain management per current when necessary orders. 4. Increase activity as tolerated. Out of bed for all meals. 5. Medical management other comorbidities primary care service. 6. Continue to follow daily chest x-rays 7. More recommendations follow based on patient's clinical course. Time with Patient: Greater than 30
--- NOTE | 2020-12-22 14:19 | XR ---
EXAMINATION TYPE: XR chest 2V DATE OF EXAM: 12/22/2020 COMPARISON: Chest x-ray 12/22/2020 and earlier time HISTORY: Pneumothorax, chest tube TECHNIQUE: Frontal and lateral views of the chest are obtained. FINDINGS: Interval left apical pneumothorax is again noted. Left-sided chest tube remains in place. Basilar atelectatic changes suspected. Pneumoperitoneum changes again noted. Cardiac mediastinal silh ouette is unchanged. There are overlying leads. Contrast is present within the bowel. IMPRESSION: Essentially stable findings.
[2020-12-23] MEDS: ACETAMINOPHEN TAB 500 MG TAB PO PRN ×3 (04:41→17:15)
--- NOTE | 2020-12-23 08:29 | XR ---
EXAMINATION TYPE: XR chest 2V DATE OF EXAM: 12/23/2020 COMPARISON: Chest x-ray 12/22/2020 HISTORY: Pneumothorax, chest tube TECHNIQUE: Frontal and lateral views of the chest are obtained. FINDINGS: Pneumoperitoneum persists. Left-sided chest tube, small left apical pneumothorax is again noted. Patchy basilar density persists, left hemidiaphragms obscured. Heart and mediastinal silhouett e is unchanged. There are overlying leads. IMPRESSION: Findings similar to prior exam. Pneumoperitoneum, basilar atelectasis, small left apical pneumothorax.
[2020-12-23] MEDS: traMADol 50 MG TAB PO SCH ×3 (08:31→20:37)
[2020-12-23] MEDS: FAMOTIDINE 20 MG TAB PO SCH ×2 (08:31→20:37)
[2020-12-23] MEDS: SPIRONOLACTONE 25 MG TAB PO SCH (08:31)
[2020-12-23] MEDS: HEPARIN SODIUM,PORCINE/PF 5,000 UNIT/0.5 ML SYRINGE SQ SCH ×2 (08:31→20:37)
--- NOTE | 2020-12-23 09:34 | P.PN ---
Subjective Progress Note Date: 12/23/20 Principal diagnosis: Recurrent left spontaneous pneumothorax, possible endometriosis. Past medical history significant for spontaneous left pneumothorax in August 2020 with left Thoravent placed, resolution of her pneumothorax and subsequently discharged home. She also has a past medical history significant for migraines, ADHD and she is a lifetime nonsmoker. POD #5 Left thoracoscopy, left pleural biopsy 2, left lung biopsy 3 and mechanical pleurodesis. Patient's currently sitting up in bed on the cardiac stepdown unit in no acute distress. She states chest tube site does hurt a bit with deep breaths and coughing, otherwise denies any pain or shortness of breath. Remains in normal sinus rhythm and hemodynamically stable. Currently on room air with oxygen saturation 97%. Able to achieve 1250 mL on incentive spirometry. Left-sided chest tube present to [facility] without any air leak present. No new concerns Objective - Vital Signs Vital signs: Vital Signs Temp 98.0 F 12/23/20 04:00 Pulse 80 12/23/20 08:00 Resp 16 12/23/20 08:00 BP 101/63 12/23/20 08:00 Pulse Ox 97 12/23/20 08:00 Intake & Output 12/22/20 12/23/20 12/23/20 18:59 06:59 18:59 Output Total 55 Balance -55 Weight 63.6 kg Output: Chest Tube Drainage 30 Left 30 Drainage 25 Left Chest 25 Other: Voiding Method Toilet Toilet - Exam CONSTITUTIONAL: Appears comfortable, cooperative, no acute distress RESPIRATORY: Lungs sounds diminished bilaterally. Respirations even, nonlabored. Currently on room air with oxygen saturation 97%. Able to achieve 1250 mL on incentive spirometry. Strong cough. CARDIOVASCULAR: S1, S2 present. Regular rate and rhythm, sinus rhythm on telemetry. Palpable peripheral pulses bilaterally. No edema present. GASTROINTESTINAL: Abdomen soft, nontender, nondistended. Active bowel sounds present 4 quadrants. Tolerating diet. GENITOURINARY: Continues to void clear, yellow urine INTEGUMENTARY: Skin is warm and dry with evidence of good perfusion. NEUROLOGIC: Cranial nerves II through XII intact MUSKULOSKELETAL: Able to move all extremities, strength equal bilaterally, gait normal PSYCHIATRIC: Alert and oriented to person place and time, appropriate affect, intact judgment and insight INVASIVE LINES AND TUBES: [facility], no air leaks present, 30 mL serosanguineous drainage overnight, 100 mL in the last 24 hours. - Allied health notes Allied health notes reviewed: nursing - Labs CBC & Chem 7: 12/19/20 08:39 12/19/20 08:39 - Imaging and Cardiology Chest x-ray: report reviewed, image reviewed Assessment and Plan Assessment: 1. Recurrent left-sided spontaneous pneumothorax, possible endometriosis status post Thoravent placement by the emergency room physician, the patient had a spontaneous left-sided pneumothorax in August 2020. Status post left thoracoscopy, left pleural biopsy 2, left lung biopsy 3 and mechanical p leurodesis 2. Pneumoperitoneum, resolved 3. History of ADHD 4. History of migraines 5. Lifetime nonsmoker Plan: 1. Likely will discontinue pleural chest tube today. Repeat chest x-ray, if stable may be discharged home from cardiothoracic surgery standpoint 2. Encourage use of her incentive spirometry 10 times every hour while awake. 3. Pain management per current when necessary orders. 4. Increase activity as tolerated. Out of bed for all meals. 5. Medical management other comorbidities primary care service. 6. Continue to follow daily chest x-rays 7. More recommendations follow based on patient's clinical course. Time with Patient: Greater than 30
--- NOTE | 2020-12-23 10:12 | P.PN ---
Subjective Progress Note Date: 12/22/20 She continues to complain of L sided discomfort with deep inspiration, denies cough or shortness of breath. Chest tube with minimal output today. Pleural cytology negative for neoplasm. Objective - Vital Signs Vital signs: Vital Signs Temp 98.0 F 12/23/20 04:00 Pulse 80 12/23/20 08:00 Resp 16 12/23/20 08:00 BP 101/63 12/23/20 08:00 Pulse Ox 97 12/23/20 08:00 Intake & Output 12/22/20 12/23/20 12/23/20 18:59 06:59 18:59 Output Total 55 Balance -55 Weight 63.6 kg Output: Chest Tube Drainage 30 Left 30 Drainage 25 Left Chest 25 Other: Voiding Method Toilet Toilet - Exam Gen: well developed well nourished NAD CV: RRR, no murmur Lungs: normal effort, clear throughout Skin: warm and dry - Labs CBC & Chem 7: 12/19/20 08:39 12/19/20 08:39 Assessment and Plan Plan: Continue with symptomatic management, chest tube per CV surgery and continue aldactone. Will need outpatient follow up with [employer] and recommend starting OCP
[2020-12-23 10:52] VITALS: BMI 22.6
--- NOTE | 2020-12-23 16:00 | P.PN ---
Subjective Progress Note Date: 12/23/20 This is a pleasant 35-year-old female admitted with recurrent left-sided pneumothorax, possible endometriosis, , status post left thoracoscopy with pleural biopsy, left lung biopsy and mechanical pleurodesis. Tolerated procedure well. Left-sided chest tube to continuous wall suction. Complains of chest tube site discomfort. States her mom had endometriosis without involvement of the lung. Patient states she is due for her menstrual cycle any day, reports history of tubes removed as well. VSS, Maintaining O2 sats in the high 90s on room air, telemetry sinus rhythm. Denies chest pain, palpitations or increased shortness of breath. 12/21/2020 left pleural chest tube remains to low continuous wall suction. No evidence of air leak .minimal serosanguineous chest tube drainage of 100-150ml over last 24 hours.Chest x-ray pending.Complains of chest tube site soreness, ambulating around in room more. Denies chest pain, palpitations or increasing shortness of breath. Incentive spirometer up to 1500 MLS. Maintaining O2 sats in the high 90s on room air. Surgical pathology/cytology pending. Afebrile, normal WBC. 12/22/2020 She continues to complain of L sided discomfort with deep inspi ration, denies cough or shortness of breath. Chest tube with minimal output today. Pleural cytology negative for neoplasm. 12/23/2020 chest x-ray this morning reporting similar to prior exam, pneumop eritoneum, bibasilar atelectasis, small left apical pneumothorax. Minimal serosanguineous drainage overnight. Chest tubes discontinued as per cardiothoracic surgery this morning. Prior chest tube site oozy. Feels better, denies pain with deep inspiration. Maintaining O2 sats in the high 90s on room air. Denies nausea, vomiting or abdominal pain. Afebrile. Objective - Vital Signs Vital signs: Vital Signs Temp 98.0 F 12/23/20 04:00 Pulse 85 12/23/20 12:00 Resp 16 12/23/20 12:00 BP 114/73 12/23/20 12:00 Pulse Ox 97 12/23/20 12:00 Intake & Output 12/22/20 12/23/20 12/23/20 18:59 06:59 18:59 Output Total 55 Balance -55 Weight 63.6 kg 63.6 kg Output: Chest Tube Drainage 30 Left 30 Drainage 25 Left Chest 25 Other: Voiding Method Toilet Toilet Toilet - Exam - Exam GENERAL: alert and oriented x3,NAD. CV: RRR, no murmur Lungs: normal effort, clear throughout Skin: warm and dry - Labs CBC & Chem 7: 12/19/20 08:39 12/19/20 08:39 Assessment and Plan Assessment: Recurrent Left-sided pneumothorax with pneumoperitoneum,status post chest tube, possible endometriosis, in a patient with history of tubal ligation as well as possibly genetic, states mother had endometriosis. Status post left thoracoscopy with pleural biopsy, left lung biopsy and mechanical pleurodesis. History of migraine Previous history of pneumothorax Plan: Continue on current medication regime ,monitoring and symptomatic treatment. Chest tube recently discontinued, repeat Chest x-ray in a.m.. Maintain aggressive pulmonary toileting with incentive spirometer reinforced.[facility] outpatient evaluation, to be arranged as per PCP. Discharge planning in progress for tomorrow pending final DC recommendations and clearance per cardiothoracic surgery, pulmonary. The impression and plan of care has been dictated as directed. : I performed a history and examination of this patient, discussed the same with the dictator. I agree with the dictator's note ,documented as a scribe. Any additional findings or plans will be noted.
[2020-12-23 23:29] VITALS: RESP 18
[2020-12-24] MEDS: ACETAMINOPHEN TAB 500 MG TAB PO PRN (06:49)
--- NOTE | 2020-12-24 08:20 | P.PN ---
Subjective Progress Note Date: 12/24/20 Principal diagnosis: Recurrent left spontaneous pneumothorax, possible endometriosis. Past medical history significant for spontaneous left pneumothorax in August 2020 with left Thoravent placed, resolution of her pneumothorax and subsequently discharged home. She also has a past medical history significant for migraines, ADHD and she is a lifetime nonsmoker. POD #6 Left thoracoscopy, left pleural biopsy 2, left lung biopsy 3 and mechanical pleurodesis. Patient's currently sitting up in bed on the cardiac stepdown unit in no acute distress. She states chest tube site does continue to hurt a bit with deep breaths and coughing, offered stronger pain medication but patient states Tylenol is plenty for now. Remains in normal sinus rhythm and hemodynamically stable. Currently on room air with oxygen saturation 95%. Able to achieve 1250 mL on incentive spirometry. Chest x-ray reviewed this morning, stable Objective - Vital Signs Vital signs: Vital Signs Temp 97.8 F 12/23/20 20:00 Pulse 83 12/24/20 04:00 Resp 18 12/24/20 04:00 BP 100/65 12/24/20 04:00 Pulse Ox 95 12/24/20 04:00 Intake & Output 12/23/20 12/24/20 12/24/20 18:59 06:59 18:59 Weight 63.6 kg Other: Voiding Method Toilet Toilet - Exam CONSTITUTIONAL: Appears comfortable, cooperative, no acute distress RESPIRATORY: Lungs sounds diminished bilaterally. Respirations even, nonlabored. Currently on room air with oxygen saturation 95%. Able to achieve 1250 mL on incentive spirometry. Strong cough. CARDIOVASCULAR: S1, S2 present. Regular rate and rhythm, sinus rhythm on telemetry. Palpable peripheral pulses bilaterally. No edema present. GASTROINTESTINAL: Abdomen soft, nontender, nondistended. Active bowel sounds present 4 quadrants. Tolerating diet. GENITOURINARY: Continues to void INTEGUMENTARY: Skin is warm and dry with evidence of good perfusion. NEUROLOGIC: Cranial nerves II through XII intact MUSKULOSKELETAL: Able to move all extremities, strength equal bilaterally, gait normal PSYCHIATRIC: Alert and oriented to person place and time, appropriate affect, intact judgment and insight - Allied health notes Allied health notes reviewed: nursing - Labs CBC & Chem 7: 12/19/20 08:39 12/19/20 08:39 - Imaging and Cardiology Chest x-ray: image reviewed Assessment and Plan Assessment: 1. Recurrent left-sided spontaneous pneumothorax, possible endometriosis status post Thoravent placement by the emergency room physician, the patient had a spontaneous left-sided pneumothorax in August 2020. Status post left thoracoscopy, left pleural biopsy 2, left lung biopsy 3 and mechanical pleurodesis 2. Pneumoperitoneum, resolved 3. History of ADHD 4. History of migraines 5. Lifetime nonsmoker Plan: 1. Chest x-ray reviewed, stable. 2. Encourage use of her incentive spirometry 10 times every hour while awake. 3. Pain management per current when necessary orders. 4. Increase activity as tolerated. Out of bed for all meals. 5. Medical management other comorbidities primary care service. 6. Patient may be discharged to home from cardiothoracic surgery standpoint. Follow up appointment made for next week with Dr. Valle. Discharge instructions discussed with the patient and placed on the discharge plan Time with Patient: Greater than 30
[2020-12-24 08:35] VITALS: TEMP 98.5
[2020-12-24] MEDS: HEPARIN SODIUM,PORCINE/PF 5,000 UNIT/0.5 ML SYRINGE SQ SCH (08:35)
[2020-12-24] MEDS: FAMOTIDINE 20 MG TAB PO SCH (08:35)
[2020-12-24] MEDS: traMADol 50 MG TAB PO SCH (08:36)
--- NOTE | 2020-12-24 09:13 | XR ---
EXAMINATION TYPE: XR chest 2V DATE OF EXAM: 12/24/2020 COMPARISON: Chest x-ray 12/23/2020 HISTORY: Status post chest tube removal, pneumothorax TECHNIQUE: Frontal and lateral views of the chest are obtained. FINDINGS: Small left apical pneumothorax is again noted, left chest tube has been removed. Basilar d ensity on the left persists, there is blunting the left costophrenic angle. Pneumoperitoneum no longe r seen. Cardiac mediastinal silhouette is unchanged. IMPRESSION: No evident complication status post chest tube removal. Minimal left apical pneumothorax , basilar atelectasis and possible associated effusion, correlate to exclude pneumonia.
--- NOTE | 2020-12-24 11:49 | P.DS ---
Providers Date of admission: 12/17/20 17:01 Expected date of discharge: 12/24/20 Attending physician: William Lee MD Consults: 12/17/20 17:03 Consult Physician Urgent Consulting Provider: Shruthi Edwards Consult Reason/Comments: Left pneumothorax Do you want consulting provider notified?: Already Contacted Consult Physician Urgent Consulting Provider: Annette Vargas Consult Reason/Comments: Pneumoperitoneum Do you want consulting provider notified?: Already Contacted 12/17/20 18:43 Consult Physician Routine Consulting Provider: Matt Valle Consult Reason/Comments: Recurrent pneumothorax Do you want consulting provider notified?: Yes Primary care physician: Madelyn Cesar Hospital Course: Final Diagnoses: Recurrent Left-sided pneumothorax with pneumoperitoneum-resolved,status post chest tube, possible endometriosis, in a patient with history of tubal ligation as well as possibly genetic component, states mother had endometriosis. Status post left thoracoscopy with pleural biopsy, left lung biopsy and mechanical pleurodesis. History of migraine Previous history of pneumothorax Hospital course:This is a pleasant 35-year-old female admitted with recurrent left-sided pneumothorax, possible endometriosis, , status post left thoracoscopy with pleural biopsy, left lung biopsy and mechanical pleurodesis. Tolerated procedure well. Left-sided chest tube to continuous wall suction. Complains of chest tube site discomfort. States her mom had endometriosis without involvement of the lung. Patient states she is due for her menstrual cycle any day, reports history of tubes removed as well. VSS, Maintaining O2 sats in the high 90s on room air, telemetry sinus rhythm. Denies chest pain, palpitations or increased shortness of breath. 12/21/2020 left pleural chest tube remains to low continuous wall suction. No evidence of air leak .minimal serosanguineous chest tube drainage of 100-150ml over last 24 hours.Chest x-ray pending.Complains of chest tube site soreness, ambulating around in room more. Denies chest pain, palpitations or increasing shortness of breath. Incentive spirometer up to 1500 MLS. Maintaining O2 sats in the high 90s on room air. Surgical pathology/cytology pending. Afebrile, normal WBC. 12/22/2020 She continues to complain of L sided discomfort with deep inspiration, denies cough or shortness of breath. Chest tube with minimal output today. Pleural cytology negative for neoplasm. 12/23/2020 chest x-ray this morning reporting similar to prior exam, pneumoperitoneum, bibasilar atelectasis, small left apical pneumothorax. Minimal serosanguineous drainage overnight. Chest tubes discontinued as per cardiothoracic surgery this morning. Prior chest tube site oozy. Feels better, denies pain with deep inspiration. Maintaining O2 sats in the high 90s on room air. Denies nausea, vomiting or abdominal pain. Afebrile. 12/24/2020 chest x-ray repeated this morning reporting no evident complications status post chest tube removal, minimal left apical pneumothorax, basilar atelectasis and possible associated effusion. Maintaining O2 sats in the mid to high 90s on room air. No tachycardia. Afebrile. Denies lightheadedness dizziness or focal deficits. Denies chest pain, palpitations or shortness of breath. Significant clinical improvement. Cleared by cardiothoracic surgery for discharge. Patient will be discharged home today in a stable condition with guarded prognosis. Patient will be set up with [facility] at a tertiary center in clinic with Dr. William Lee. Patient will be discharged home on oral contraceptives as discussed with patient. The impression and plan of care has been dictated as directed. DrTanesha: I performed a history and examination of this patient, discussed the same with the dictator. I agree with the dictator's note ,documented as a scribe. Any additional findings or plans will be noted. Patient Condition at Discharge: Stable Plan - Discharge Summary New Discharge Prescriptions: New Levonorgestrel-Ethin Estradiol [Lutera-28 Tablet] 1 tab PO DAILY #28 tab Acetaminophen Tab [Tylenol] 1,000 mg PO Q6HR PRN tab PRN Reason: Fever And/ Or Pain Continue Spironolactone [Aldactone] 50 mg PO DAILY Methylphenidate HCl [Concerta] 54 mg PO DAILY Methylphenidate HCl [Ritalin] 30 mg PO DAILY@1200 Discharge Medication List Spironolactone [Aldactone] 50 mg PO DAILY 03/20/19 [History] Methylphenidate HCl [Concerta] 54 mg PO DAILY 06/27/20 [History] Methylphenidate HCl [Ritalin] 30 mg PO DAILY@1200 09/12/20 [History] Acetaminophen Tab [Tylenol] 1,000 mg PO Q6HR PRN tab 12/24/20 [Rx] Levonorgestrel-Ethin Estradiol [Lutera-28 Tablet] 1 tab PO DAILY #28 tab 12/24/20 [Rx] Follow up Appointment(s)/Referral(s): [facility] at a tertiary center [Other] - 1 Week (To be arranged in clinic with Dr. William Lee) William Lee MD [STAFF PHYSICIAN] - 12/29/20 10:00 am (Sunday-[place] location) Madie Parsons NPC [Nurse Practitioner] - 12/31/20 3:15 pm (Sunday) Matt Valle MD [STAFF PHYSICIAN] - 12/30/20 1:30 pm () Patient Instructions/Handouts: Spontaneous Pneumothorax (DC) Activity/Diet/Wound Care/Special Instructions: Continue with incentive spirometer 10 times daily 1 hour while awake .Patient may use OTC NSAIDs as discussed for discomfort.[facility] at [facility] in one to 2 weeks, will be arranged by PCP DISCHARGE INSTRUCTIONS: 1. No driving for 2 weeks, or until physician gives their ok. 2. No lifting, pushing, or pulling more than 10 pounds for 2 weeks. The physician will advise of any restriction changes. 3. Continue pain control per as needed orders. Alternate acetaminophen (Tylenol) and ibuprofen (Motrin/Advil) for pain. 4. Continue with incentive spirometry and splinting until otherwise directed by the physician. 5. Leave chest tube dressing for 48 hours. After that, remove all dressings and shower daily. 6. Routine incision care. No powders, lotions, ointments on incisions. 7. Please call surgeon/[employer] for temp greater than 101 F or purulent drainage from incisions.
[2020-12-24 11:54] VITALS: BP 129/81; PULSE 76
[2020-12-24] MEDS: SPIRONOLACTONE 25 MG TAB PO SCH (11:54)
== END 2020-12-24 12:23 | disposition home or self-care (01) | DRG 164 ==
LOC: EC 13:09 → 3SCARD 17:01
PROVIDERS: ADMIT Family Medicine; ATTEND Family Medicine
PROC: 0W9B30Z Drainage of Left Pleural Cavity with Drainage Device, Percutaneous Approach (ICD-10-PCS; 2020-12-17)
PROC: 0B5P4ZZ Destruction of Left Pleura, Percutaneous Endoscopic Approach (ICD-10-PCS; 2020-12-18)
PROC: 0BDL4ZX Extraction of Left Lung, Percutaneous Endoscopic Approach, Diagnostic (ICD-10-PCS; 2020-12-18)
PROC: 0BBP4ZX Excision of Left Pleura, Percutaneous Endoscopic Approach, Diagnostic (ICD-10-PCS; principal; 2020-12-18 09:47)
DX: J93.0 Spontaneous tension pneumothorax (principal); J98.19 Other pulmonary collapse; J98.11 Atelectasis; G43.909 Migraine, unspecified, not intractable, without status migrainosus; K66.8 Other specified disorders of peritoneum; J93.82 Other air leak; N80.8 Other endometriosis; F90.9 Attention-deficit hyperactivity disorder, unspecified type; Z20.822 Contact with and (suspected) exposure to COVID-19; Z79.899 Other long term (current) drug therapy; Z98.51 Tubal ligation status; Z99.81 Dependence on supplemental oxygen; Z90.49 Acquired absence of other specified parts of digestive tract; Z88.2 Allergy status to sulfonamides
CPT/HCPCS: 32551; 36415; 36600; 71045; 71046; 71260; 74177; 80048; 80053; 82103; 82550; 82805; 83605; 83690; 83735; 85025; 85610; 85730; 87635; 88305; 88307; 96374; 96375; 96376; 99291

== ENCOUNTER → 2020-12-17 | Outpatient (CLI) | payer OTHER ==
--- NOTE | 2020-12-17 12:55 | XR ---
EXAMINATION TYPE: XR abdomen 1V DATE OF EXAM: 12/17/2020 COMPARISON: 09/27/2020 HISTORY: History of free air TECHNIQUE: One view abdominal series FINDINGS: There is a large amount of free intraperitoneal air. Surgical clips in the right upper quadrant. Sharon l gas pattern nonspecific. Osseous structures stable. No definite suspicious calcifications. Stable c alcifications in the pelvis likely vascular. Large left pneumothorax. IMPRESSION: 1. Large amount of free intraperitoneal air. Also appears to be a large left pneumothorax. Report evan led to referring clinician 12:49 PM 12/17/2020.
--- NOTE | 2020-12-17 13:06 | XR ---
EXAMINATION TYPE: XR chest 2V DATE OF EXAM: 12/17/2020 COMPARISON: 10/07/2020 TECHNIQUE: PA and lateral views submitted. HISTORY: Respiratory distress and chest pain FINDINGS: There is a large left pneumothorax. There is free intraperitoneal abdominal air. Surgical clips in th e abdomen. Could not exclude mediastinal deviation and tension pneumothorax. Right lung clear. Report called to referring clinician 12:48 PM 12/17/2020. IMPRESSION: Complete collapse of the left lung with large left-sided pneumothorax with probable tensi on component. Large amount of free intra-abdominal air. Patient was contacted by telephone and was to return immediately to the emergency room. Emergency room physician also called with results.
== END | disposition home or self-care (01) ==
LOC: RADXRMAIN 11:57
PROVIDERS: ATTEND Physician Assistant
DX: J98.19 Other pulmonary collapse (principal); J93.9 Pneumothorax, unspecified
CPT/HCPCS: 71046; 74018

== ENCOUNTER → 2020-12-30 | Outpatient (CLI) | payer OTHER ==
--- NOTE | 2020-12-30 13:59 | XR ---
EXAMINATION TYPE: XR chest 2V DATE OF EXAM: 12/30/2020 COMPARISON: 12/24/2020 TECHNIQUE: PA and lateral views submitted. HISTORY: Abnormal x-ray FINDINGS: Subsegmental changes at the left lung. No pneumothorax or pleural effusion. Heart size normal. No ove rt failure. Linear density seen in the left upper lobe. Correlate for previous left lung surgery. IMPRESSION: 1. Left basilar atelectasis or scarring favored over infiltrate. 2. No evidence of pneumothorax.
== END | disposition home or self-care (01) ==
LOC: RADXRMAIN 13:17
PROVIDERS: ATTEND Thoracic Surgery (Cardiothoracic Vascular Surgery)
DX: R91.8 Other nonspecific abnormal finding of lung field (principal)
CPT/HCPCS: 71046

== ENCOUNTER → 2021-05-11 | Outpatient (CLI) | payer OTHER ==
--- NOTE | 2021-05-11 14:29 | CT ---
EXAMINATION TYPE: CT abdomen pelvis w con DATE OF EXAM: 05/11/2021 COMPARISON: CT 12/17/2020, no recent exams available for correlation HISTORY: Abn xray, air on the Lt side, constipation CT DLP: 902 mGycm Automated exposure control for dose reduction was used. TECHNIQUE: Helical acquisition of images from the lung bases through the pelvis have been completed. CONTRAST: Performed with Oral Contrast and with IV Contrast, patient injected with 100 mL of Isovue 300. FINDINGS: LUNG BASES: Some probable basilar scarring is appreciated on the left2. AORTA: No significant abnormality is appreciated. LIVER/GB: Patient is post cholecystectomy. Liver shows no mass. PANCREAS: No significant abnormality is seen. SPLEEN: No significant abnormality is seen. ADRENALS: No significant abnormality is seen. KIDNEYS: Probable cortical cysts present bilaterally within the kidneys, no evident hydronephrosis or calculus. REPRODUCTIVE ORGANS: Uterus appears prominently BOWEL: Diffuse colonic wall thickening is present, retained fecal debris is present throughout much of the colon. FREE AIR: No Free Air visible. ASCITES: Some minimal fluid in the pelvis is felt likely to be physiologic. PELVIC ADENOPATHY: None visualized. RETROPERITONEAL ADENOPATHY: No Retroperitoneal Adenopathy visible. URINARY BLADDER: No significant abnormality is seen. OSSEOUS STRUCTURES: No significant abnormality is seen. IMPRESSION: CORRELATE FOR COLITIS
== END | disposition home or self-care (01) ==
LOC: RADCTMAIN 12:13
PROVIDERS: ATTEND Family Medicine
DX: R10.10 Upper abdominal pain, unspecified (principal)
CPT/HCPCS: 74177; Q9967

== ENCOUNTER 2021-05-14 14:11 | Emergency (ER) | payer OTHER ==
[2021-05-14 14:24] VITALS: TEMP 98
--- NOTE | 2021-05-14 14:42 | XR ---
EXAMINATION TYPE: XR chest 2V DATE OF EXAM: 05/14/2021 CLINICAL HISTORY: Right-sided chest pain. TECHNIQUE: Frontal and lateral views of the chest are obtained. COMPARISON: Prior chest x-ray December 30, 2020 FINDINGS: Left lower lung linear scarring redemonstrated. There is no focal air space opacity, pleur al effusion, or pneumothorax seen. The cardiac silhouette size remains within normal limits. The o sseous structures are intact. IMPRESSION: No acute process. No significant change from prior.
[2021-05-14] MEDS ORDERED: SODIUM CHLORIDE 0.9% 1,000 ML IV STA (15:27)
--- NOTE | 2021-05-14 15:43 | ED ---
General Adult HPI - General Chief complaint: Chest Pain Stated complaint: neck & shoulder pain, SOB Time Seen by Provider: 05/14/21 15:11 Source: patient Mode of arrival: ambulatory Limitations: no limitations - History of Present Illness Initial comments: Dictation was produced using [employer] dictation software. please excuse any grammatical, word or spelling errors. Chief Complaint: 35-year-old female presents to the emergency department for pleuritic neck and back pain History of Present Illness: 35-year-old female she has past medical history of pneumothorax. Patient states she's been suffering from colitis for the last several days. She went and saw a mid-level provider primary care physician's office who ordered a CT with oral contrast that showed colitis. She isn't diagnosed with colitis and put on oral antibiotics. Patient has had no travel, she has had no exposures to other sick individuals, she has not been on recent antibiotics, has been hospitalized recently and there is no concerns of eating still contaminated food. Furthermore she is not exposed to farm animals. Today patient woke up this morning and started to feel some neck and back pain. She states that sharp and pleuritic worse with movement. Patient has any shortness of breath. Denies any history of blood clot. No lower extremity symptoms. She felt like her symptoms reminded her of when she was diagnosed with pneumothorax in the past. The ROS documented in this emergency department record has been reviewed and confirmed by me. Those systems with pertinent positive or negative responses have been documented in the HPI. All other systems are other negative and/or noncontributory. PHYSICAL EXAM: General Impression: Alert and oriented x3, not in acute distress HEENT: Normocephalic atraumatic, extra-ocular movements intact, pupils equal and reactive to light bilaterally, mucous membranes moist. Cardiovascular: Heart regular rate and rhythm Chest: Able to complete full sentences, no retractions, no tachypnea Abdomen: abdomen soft, non-tender, non-distended, no organomegaly Musculoskeletal: Pulses present and equal in all extremities, no peripheral edema Motor: no focal deficits noted Neurological: CN II-XII grossly intact, no focal motor or sensory deficits noted Skin: Intact with no visualized rashes Psych: Normal affect and mood ED course: 35-year-old female presents to the emergency department for neck and back pain. She has history of pneumothorax. She states that her symptoms today remind her of pneumothorax. She does have a lot of features that suggest musculoskeletal strain. Signs upon arrival shows heart rate of 125, rest of vital signs within acceptable limits. Patient placed on surveillance system monitor. She is sustained tachycardia. Patient asked if tachycardia for her is normal she says no. Laboratory evaluation obtained. CBC unremarkable. D-dimer is negative. Metabolic panel is negative. Chest x-ray shows no acute processes. Patient observed in the emergency department for approximately 2 hours and 45 minutes patient is reevaluated at bedside at 5:00 PM found to be stable medical c ondition. Heart rate still tachycardic however on the surveillance system monitor her heart rate will go on to the low 100s and improved after IV fluids. There is component of anxiety because as I walk into the room patient's heart rate jumps up into the 120s. Patient states she is squeamish around hospitals needles and bodily fluids. Disposition options were discussed. Patient will be discharge. She advised follow-up with primary care doctor. At this point is unclear what is causing patient's tachycardia however she does not appear to be in any distress and likely caused by anxiety. She is agreeable for discharge with strict return precautions. Otherwise advised follow-up with primary care della white. EKG interpretation: Ventricular rate 117, sinus tachycardia,. Interval 1:30, care is 83, QTC 366. No ND prolongation, no QTC prolongation, no ST or T-wave changes noted. Sinus tachycardia. - Related Data Home Medications Medication Instructions Recorded Confirmed Spironolactone [Aldactone] 25 mg PO BID 03/20/19 05/14/21 Methylphenidate HCl [Concerta] 54 mg PO DAILY 06/27/20 05/14/21 Methylphenidate HCl [Ritalin] 20 mg PO DAILY@1200 09/12/20 05/14/21 Ciprofloxacin HCl [Cipro] 500 mg PO Q12HR 05/14/21 05/14/21 Sertraline Unknown Dose 1 tab PO DAILY 05/14/21 05/14/21 Vivenva 1 tab PO HS 05/14/21 05/14/21 metroNIDAZOLE [Flagyl] 500 mg PO BID 05/14/21 05/14/21 Allergies Allergy/AdvReac Type Severity Reaction Status Date / Time sulfamethoxazole Allergy Rash/Hives Verified 05/14/21 15:45 [From Bactrim] trimethoprim [From Bactrim] Allergy Rash/Hives Verified 05/14/21 15:45 Review of Systems ROS Statement: Those systems with pertinent positive or pertinent negative responses have been documented in the HPI. ROS Other: All systems not noted in ROS Statement are negative. Past Medical History Past Medical History: No Reported History Additional Past Medical History / Comment(s): Migraines, history of spontaneous left pneumothorax in August 2020 with Thoravent placement History of Any Multi-Drug Resistant Organisms: None Reported Past Surgical History: Appendectomy, Section, Cholecystectomy Additional Past Surgical History / Comment(s): History of left-sided Thoravent for pneumothorax Past Anesthesia/Blood Transfusion Reactions: Unable to Obtain Additional Past Anesthesia/Blood Transfusion Reaction / Comment(s): No prior blood transfusions Past Psychological History: ADD/ADHD Smoking Status: Never smoker Past Alcohol Use History: Occasional Past Drug Use History: None Reported - Past Family History Mother Family Medical History: No Reported History Father Family Medical History: No Reported History General Exam Limitations: no limitations Course Vital Signs 05/14/21 14:21 Temperature 98 F Pulse Rate 125 H Respiratory 20 Rate Blood Pressure 163/81 O2 Sat by Pulse 96 Oximetry Medical Decision Making - Lab Data Result diagrams: 05/14/21 16:00 05/14/21 16:00 Lab Results 05/14/21 05/14/21 05/14/21 Range/Units 16:00 16:00 16:00 WBC 8.5 (3.8-10.6) k/uL RBC 4.48 (3.80-5.40) m/uL Hgb 14.4 (11.4-16.0) gm/dL Hct 41.1 (34.0-46.0) % MCV 91.6 (80.0-100.0) fL MCH 32.1 (25.0-35.0) pg MCHC 35.0 (31.0-37.0) g/dL RDW 11.8 (11.5-15.5) % Plt Count 225 (150-450) k/uL MPV 8.0 Neutrophils % 76 % Lymphocytes % 18 % Monocytes % 4 % Eosinophils % 1 % Basophils % 1 % Neutrophils # 6.5 (1.3-7.7) k/uL Lymphocytes # 1.5 (1.0-4.8) k/uL Monocytes # 0.3 (0-1.0) k/uL Eosinophils # 0.1 (0-0.7) k/uL Basophils # 0.1 (0-0.2) k/uL D-Dimer <0.17 (<0.60) mg/L FEU Sodium 136 L (137-145) mmol/L Potassium 4.1 (3.5-5.1) mmol/L Chloride 105 (98-107) mmol/L Carbon Dioxide 21 L (22-30) mmol/L Anion Gap 10 mmol/L BUN 11 (7-17) mg/dL Creatinine 0.67 (0.52-1.04) mg/dL Est GFR (CKD-EPI)AfAm >90 (>60 ml/min/1.73 sqM) Est GFR (CKD-EPI)NonAf >90 (>60 ml/min/1.73 sqM) Glucose 91 (74-99) mg/dL Calcium 9.2 (8.4-10.2) mg/dL Disposition Clinical Impression: Tachycardia, Pleurisy Disposition: HOME SELF-CARE Condition: Good Instructions (If sedation given, give patient instructions): Tachycardia (ED), Back Pain (ED) Is patient prescribed a controlled substance at d/c from ED?: No Referrals: William Lee MD [Primary Care Provider] - 1-2 days
[2021-05-14 16:09] LABS: Basophils # (A) 0.1 k/uL (0-0.2); Basophils % (A) 1 %; Eosinophils # (A) 0.1 k/uL (0-0.7); Eosinophils % (A) 1 %; HCT 41.1 % (34.0-46.0); HGB 14.4 gm/dL (11.4-16.0); Lymphocytes # (A) 1.5 k/uL (1.0-4.8); Lymphocytes % (A) 18 %; MCH 32.1 pg (25.0-35.0); MCV 91.6 fL (80.0-100.0); Monocytes # (A) 0.3 k/uL (0-1.0); Monocytes % (A) 4 %; Neutrophils # (A) 6.5 k/uL (1.3-7.7); Neutrophils % (A) 76 %; Platelet Count 225 k/uL (150-450); RBC 4.48 m/uL (3.80-5.40); RDW 11.8 % (11.5-15.5); WBC 8.5 k/uL (3.8-10.6)
[2021-05-14 16:41] LABS: African American GFR (CKD) >90 (>60 ml/min/1.73 sqM); Anion Gap 10 mmol/L; Blood Urea Nitrogen 11 mg/dL (7-17); Calcium 9.2 mg/dL (8.4-10.2); Carbon Dioxide 21 mmol/L (22-30); Chloride 105 mmol/L (98-107); Glucose 91 mg/dL (74-99); Non-African American GFR(CKD) >90 (>60 ml/min/1.73 sqM); Potassium 4.1 mmol/L (3.5-5.1); Sodium 136 mmol/L (137-145)
[2021-05-14 17:12] VITALS: BP 131/76; PULSE 112; RESP 17
== END 2021-05-14 17:24 | disposition home or self-care (01) ==
LOC: EC 14:11
DX: R00.0 Tachycardia, unspecified (principal); R09.1 Pleurisy; Z88.2 Allergy status to sulfonamides
CPT/HCPCS: 36415; 71046; 80048; 85025; 85379; 93005; 96360; 99285